=== PATIENT | female | born 1935 | race Caucasian/White ===

== ENCOUNTER → 2016-09-25 | Outpatient (CLI) | payer OTHER ==
[~2016-09-25] MED LIST: ALBUAER2 INH; CALCTAB65 PO; CHOL100027 PO; FLUT110A INH; FLVHFA44 INH; FURO-85 PO; LEVO125T5 PO; LISI10TA PO; LORA0.5T12 PO; LTRCR30 TOP; MECL1TAB40 PO; METO-217 PO; MULTTAB58 PO; NITR0.4S SL; NYST100010 TOP; NYST100098 TOP; OMEP20CA9 PO; POTA10CA28 PO; POTA20TA16 PO; PRMVC PV; SIMV20TA5 PO; SPIR25TA PO; WARF-283 PO; WARF4TAB8 PO
--- NOTE | 2016-09-25 15:49 | MAMMOGRAPHY REPORT ---
BILATERAL DIGITAL SCREENING MAMMOGRAM WITH CAD: 09/25/2016 CLINICAL HISTORY: Routine screening. Patient has no complaints. TECHNIQUE: Bilateral CC, MLO, right XCCM and end left XCCL views were obtained. Current study was a lso evaluated with a Computer Aided Detection (CAD) system. COMPARISON: Comparison is made to exams dated: 09/23/2015 mammogram, 09/22/2014 mammogram, 07/21/2013 mammogram, 07/26/2011 mammogram, 07/18/2012 mammogram, and 07/18/2011 mammogram - [facility]. BREAST COMPOSITION: The tissue of both breasts is almost entirely fatty. FINDINGS: There are scattered stable benign-appearing microcalcifications in the breasts. No new moody spicious mass, architectural distortion or cluster of microcalcifications is seen. IMPRESSION: ACR BI-RADS CATEGORY 1: NEGATIVE There is no mammographic evidence of malignancy. A 1 year screening mammogram is recommended. The p atient will receive written notification of the results. Approximately 10% of breast cancers are not detected with mammography. A negative mammographic repor t should not delay biopsy if a clinically suggestive mass is present. Syl Robert M.D. ay/:09/25/2016 15:34:37 Hospital Cna: Luz FAIR(R)(M), [facility] letter sent: Normal 1/2 BI-RADS Code: ACR BI-RADS Category 1: Negative
== END ==
LOC: C.MAMM 13:23
PROVIDERS: ATTEND Family Medicine
DX: Z12.31 Encounter for screening mammogram for malignant neoplasm of breast (principal)

== ENCOUNTER 2016-10-06 06:35 | Emergency (ER) | payer OTHER ==
[~2016-10-06] VITALS: Ht 154.9 cm; Wt 84.0 kg
[~2016-10-06 06:35] MED LIST changes: -FLVHFA44 INH; -LTRCR30 TOP; -NYST100010 TOP; -POTA10CA28 PO; -POTA20TA16 PO; -SPIR25TA PO; -WARF4TAB8 PO
[2016-10-06 06:43] VITALS: TEMP 36.9; O2SAT 97; Ht 154.9 cm; Wt 84.0 kg
[2016-10-06] MEDS ORDERED: METOPROLOL SUCC 50MG EXT REL TAB PO STA (06:46)
[2016-10-06] MEDS ORDERED: ASPIRIN 324 MG CHEW PO STA (06:47)
--- NOTE | 2016-10-06 06:50 | EMERGENCY ROOM VISIT NOTE ---
History Report prepared by Demetrio: Matt Pulido Under the Supervision of: Dr. Laura Smith M.D. First contact with patient: 06:38 Chief Complaint: CARDIAC ASSESSMENT Stated Complaint: CHEST DISCOMFORT History of Present Illness The patient is an 81 year old female who presents to the Emergency Room with complaints of resolved chest discomfort. The patient noticed a "hot" sensation across her chest towards the left arm after getting up to use the restroom at approximately 0445 this morning. The discomfort lasted about 10 minutes and is currently resolved. The patient denies shortness of breath. She denies any recent illness or fevers. She denies history of myocardial infarction. The patient takes Coumadin for atrial fibrillation. She does not take Aspirin. The patient takes Lisinopril and Metoprolol every morning, which she has not yet had this morning. She follows with Dr. Reid (Cardiology). Source of History: patient Onset: 0445 this morning Position: chest Quality: other ("hot") Timing: resolved Associated Symptoms: No SOB, No fevers Review of Systems See HPI for pertinent positives & negatives. A total of 10 systems reviewed and were otherwise negative. Past Medical & Surgical Medical Problems: (1) Atrial fibrillation (2) Cirrhosis of liver (3) CKD (chronic kidney disease), stage III (4) Dyslipidemia (5) Dyspnea (6) Essential tremor (7) HTN (hypertension) (8) Hypertension (9) Hypothyroidism (10) Mild mitral regurgitation (11) Osteoporosis (12) Warfarin anticoagulation Surgical Problems: (1) H/O bladder repair surgery (2) H/O colonoscopy (3) History of hysterectomy (4) S/P reduction mammoplasty Family History Patient reports no known family medical history. Social History Smoking Status: Never Smoker Alcohol Use: none Drug Use: none Marital Status: Housing Status: lives alone Occupation Status: retired Current/Historical Medications Scheduled Calcium Carbonate-Vitamin D (Calcium 500 + D), 1 TAB PO DAILY Cholecalciferol (Vitamin D 1000 Unit), 1,000 INTER.UNIT PO DAILY Clotrimazole (Lotrimin 1%), 1 APPLN TOP BID Fluticasone Propionate (Flovent Hfa), 2 PUFFS INH BID Furosemide (Lasix), 20 MG PO DAILY Levothyroxine Sodium (Levothyroxine Sodium), 125 MCG PO DAILY Lisinopril (Prinivil), 10 MG PO BID Metoprolol Succinate (Toprol Xl), 50 MG PO BID Multiple Vitamin (Multivitamin), 1 TAB PO DAILY Nystatin (Topical) (Nystop), 1 APPLN TOP DAILY Omeprazole (Prilosec), 20 MG PO DAILY Potassium Ext Rel (Klor-Con), 20 MEQ PO DAILY Simvastatin (Zocor), 20 MG PO HS Spironolactone (Aldactone), 25 MG PO DAILY Warfarin Sod (Jantoven), 4 MG PO UD Scheduled PRN Estrogens, Conjugated (Premarin), 1 APPLN PV HS PRN for vaginal atrophy Lorazepam (Lorazepam), 0.5 MG PO TID PRN for Headache/Tremor Meclizine HCl (Meclizine HCl), 12.5 MG PO TID PRN for Dizziness Nitroglycerin (Nitrostat), 0.4 MG SL UD PRN for Chest Pain Allergies Coded Allergies: Epinephrine (Verified Adverse Reaction, Severe, SEVERE TACHYCARDIA, ) Beta Adrenergic Blockers (Verified Adverse Reaction, Intermediate, CHF, ) Sotalol (Verified Adverse Reaction, Intermediate, CHF, 11/04/15) Replaces BETAPACE AF Physical Exam Vital Signs Date Time Temp Pulse Resp B/P Pulse Ox O2 Delivery O2 Flow Rate FiO2 10/06/16 11:50 72 15 130/79 96 Room Air 10/06/16 10:42 65 10/06/16 10:37 72 18 140/66 96 Room Air 10/06/16 08:54 76 18 153/93 95 Room Air 10/06/16 08:08 66 16 148/62 97 Room Air 10/06/16 07:10 66 10/06/16 06:56 69 18 141/85 95 Room Air 10/06/16 06:43 97 Room Air 10/06/16 06:43 36.9 72 16 161/114 97 Room Air 10/06/16 06:43 97 Room Air Physical Exam Vital signs reviewed. General: Elderly, well-appearing female, in no significant distress. HEENT: No scleral icterus, PERRLA, neck supple. Atraumatic. Cardiovascular: Regular rate and rhythm, no extra sounds. Pulmonary: Clear to auscultation bilaterally, normal work of breathing. Abdomen: Soft, nontender, nondistended, positive bowel sounds. Obese. Musculoskeletal: Atraumatic, no peripheral edema. Neurologic: Patient awake alert and oriented x 3, full strength in all 4 extremities. Cranial nerves 2 through 12 grossly intact. Skin: Warm, dry, no rash Medical Decision & Procedures ER Provider Diagnostic Interpretation: X-ray results as stated below per interpretation by me and the radiologist: CHEST ONE VIEW PORTABLE HISTORY: Atypical chest pain. COMPARISON: Chest 11/04/2015. FINDINGS: The heart remains mildly enlarged. Large hiatus hernia. Mild pulmonary vascular congestion and trace bilateral pleural effusions. No pneumothorax. Small lobular density at the base the right lower lobe is consistent with a small fat-containing hernia. No new focal lung consolidations. IMPRESSION: Cardiomegaly with mild pulmonary vascular congestion and trace bilateral pleural effusions. Electronically signed by: Tez Lawrence M.D. 10/06/2016 7:28 AM Dictated Date/Time: 10/06/2016 7:27 AM Laboratory Results 10/06/16 06:40 Red Blood Count 4.88, Mean Corpuscular Volume 88.5, Mean Corpuscular Hemoglobin 29.5, Mean Corpuscular Hemoglobin Concent 33.3, Mean Platelet Volume 9.8, Neutrophils (%) (Auto) 72.5, Lymphocytes (%) (Auto) 15.3, Monocytes (%) (Auto) 10.2, Eosinophils (%) (Auto) 1.4, Basophils (%) (Auto) 0.3, Neutrophils # (Auto ) 5.56, Lymphocytes # (Auto) 1.17, Monocytes # (Auto) 0.78, Eosinophils # (Auto ) 0.11, Basophils # (Auto) 0.02 10/06/16 06:40 Test 10/06/16 06:40 10/06/16 06:52 10/06/16 09:00 10/06/16 11:11 White Blood Count 7.66 K/uL (4.8-10.8) Red Blood Count 4.88 M/uL (4.2-5.4) Hemoglobin 14.4 g/dL (12.0-16.0) Hematocrit 43.2 % (37-47) Mean Corpuscular Volume 88.5 fL (80-100) Mean Corpuscular Hemoglobin 29.5 pg (25-34) Mean Corpuscular Hemoglobin Concent 33.3 g/dl (32-36) Platelet Count 312 K/uL (130-400) Mean Platelet Volume 9.8 fL (7.4-10.4) Neutrophils (%) (Auto) 72.5 % Lymphocytes (%) (Auto) 15.3 % Monocytes (%) (Auto) 10.2 % Eosinophils (%) (Auto) 1.4 % Basophils (%) (Auto) 0.3 % Neutrophils # (Auto) 5.56 K/uL (1.4-6.5) Lymphocytes # (Auto) 1.17 K/uL (1.2-3.4) Monocytes # (Auto) 0.78 K/uL (0.11-0.59) Eosinophils # (Auto) 0.11 K/uL (0-0.5) Basophils # (Auto) 0.02 K/uL (0-0.2) RDW Standard Deviation 45.0 fL (36.4-46.3) RDW Coefficient of Variation 13.9 % (11.5-14.5) Immature Granulocyte % (Auto) 0.3 % Immature Granulocyte # (Auto) 0.02 K/uL (0.00-0.02) Prothrombin Time 26.6 SECONDS (9.0-12.0) Prothromb Time International Ratio 2.4 (0.9-1.1) Activated Partial Thromboplast Time 37.9 SECONDS (21.0-31.0) Partial Thromboplastin Ratio 1.5 Anion Gap 8.0 mmol/L (3-11) Est Creatinine Clear Calc Drug Dose 50.4 ml/min Estimated GFR () 73.4 Estimated GFR (Non- 63.4 BUN/Creatinine Ratio 21.3 (10-20) Calcium Level 8.4 mg/dl (8.5-10.1) Magnesium Level 2.0 mg/dl (1.8-2.4) Total Bilirubin 1.6 mg/dl (0.2-1) Direct Bilirubin 0.3 mg/dl (0-0.2) Aspartate Amino Transf (AST/SGOT) 22 U/L (15-37) Alanine Aminotransferase (ALT/SGPT) 20 U/L (12-78) Alkaline Phosphatase 105 U/L (45-117) Total Creatine Kinase 73 U/L (26-192) Creatine Kinase MB 1.2 ng/ml (0.5-3.6) Creatine Kinase MB Ratio 1.6 (0-3.0) Total Protein 6.8 gm/dl (6.4-8.2) Albumin 3.5 gm/dl (3.4-5.0) FC-Ahs-T-Type Natriuretic Peptide 1080 pg/ml (0-1800) Urine Color YELLOW Urine Appearance CLEAR (CLEAR) Urine pH 6.0 (4.5-7.5) Urine Specific [place] 1.011 (1.000-1.030) Urine Protein NEG (NEG) Urine Glucose (UA) NEG (NEG) Urine Ketones NEG (NEG) Urine Occult Blood TRACE (NEG) Urine Nitrite NEG (NEG) Urine Bilirubin NEG (NEG) Urine Urobilinogen NEG (NEG) Urine Leukocyte Esterase MODERATE (NEG) Urine WBC (Auto) 5-10 /hpf (0-5) Urine RBC (Auto) 0-4 /hpf (0-4) Urine Hyaline Casts (Auto) 1-5 /lpf (0-5) Urine Epithelial Cells (Auto) >30 /lpf (0-5) Urine Bacteria (Auto) NEG (NEG) Urine Yeast (Auto) (NONE PRSENT) Bedside Troponin I 0.020 ng/ml (0-0.045) Date/Time Source Procedure Growth Status 10/06/16 09:00 Urine , Clean Catch Urine Culture - Final Lactobacillus Species Complete Laboratory results per my review. Medications Administered Medications (Trade) Dose Ordered Sig/Jac Route Start Time Stop Time Status Last Admin Dose Admin Lisinopril (Zestril Tab) 10 mg NOW ONCE PO 10/06/16 07:00 10/06/16 07:01 DC 10/06/16 06:54 10 MG Metoprolol Succinate (Toprol Xl Tab) 50 mg NOW STAT PO 10/06/16 06:46 10/06/16 06:47 DC 10/06/16 06:54 50 MG Aspirin (Aspirin Chew) 324 mg NOW STAT PO 10/06/16 06:47 10/06/16 06:49 DC 10/06/16 06:54 324 MG Furosemide (Lasix Inj) 40 mg NOW STAT IV 10/06/16 08:02 10/06/16 08:04 DC 10/06/16 08:10 40 MG Potassium Chloride (Kcl 10 Meq / Wtr) 20 meq NOW STAT IV 10/06/16 08:36 10/06/16 08:37 DC 10/06/16 08:40 20 MEQ ECG Indication: chest pain Rate (beats per minute): 74 Rhythm: atrial fibrillation Findings: no acute ischemic change, other (QTC 461) ED Course 0645: Past medical records reviewed. The patient was evaluated in room A12b. A complete history and physical examination was performed. 0646: Metoprolol Succinate 50 mg PO. 0647: Aspirin 324 mg PO. 0700: Lisinopril 10 mg PO. 0945: Reassessed the patient. Ordering another troponin. 1200: Upon reevaluation, the patient appeared to have improvement of her symptoms. I discussed findings with her. She verbalized agreement of the treatment plan. She was discharged home. Medical Decision Differential diagnosis: Acute coronary syndrome, pulmonary embolus, aortic dissection, musculoskeletal pain, pneumonia, pleural effusion, pneumothorax Impression Primary Impression: Chest pain radiating to arm Scribe Attestation The scribe's documentation has been prepared under my direction and personally reviewed by me in its entirety. I confirm that the note above accurately reflects all work, treatment, procedures, and medical decision making performed by me. Departure Information Dispostion Home / Self-Care Prescriptions Potassium Ext Rel (Klor-Con) 20 Meq Tabcr 20 MEQ PO DAILY, #30 TAB Prov: Laura Smith M.D. 10/06/16 Referrals Jovany El M.D. (PCP) Forms IMPORTANT VISIT INFORMATION Patient Instructions [facility] Additional Instructions Diagnosis: CHF, Chest pain Continue lasix as prescribed. Potassium 20 MEq daily. Follow up with your doctor this week for reevaluation. Return to emergency for worsening of symptoms or any medical concerns.
[2016-10-06] MEDS ORDERED: SPIR25TA PO (07:00)
[2016-10-06] MEDS ORDERED: WARF4TAB8 PO (07:00)
[2016-10-06] MEDS ORDERED: NYST100010 TOP (07:00)
[2016-10-06] MEDS ORDERED: LTRCR30 TOP (07:00)
[2016-10-06] MEDS ORDERED: LISINOPRIL 5 MG TAB PO ONE (07:00)
[2016-10-06] MEDS ORDERED: FLVHFA44 INH (07:00)
[2016-10-06 07:06] LABS: BASO % 0.3 %; BASO ABS # 0.02 K/uL (0-0.2); COMPLETE YES; EOS % 1.4 %; HEMATOCRIT 43.2 % (37-47); IG% 0.3 %; LYMPH % 15.3 %; LYMPH ABS # 1.17 K/uL (1.2-3.4); MEAN CELL VOLUME 88.5 fL (80-100); MEAN CORPUSCULAR HEMOGLOBIN 29.5 pg (25-34); MEAN CORPUSCULAR HGB CONC 33.3 g/dl (32-36); MEAN PLATELET VOLUME 9.8 fL (7.4-10.4); MONO % 10.2 %; NEUT % 72.5 %; PLATELET COUNT 312 K/uL (130-400); RED BLOOD COUNT 4.88 M/uL (4.2-5.4); WHITE BLOOD COUNT 7.66 K/uL (4.8-10.8)
[2016-10-06 07:12] LABS: POINT OF CARE TROPONIN I 0.01 ng/ml (0-0.045)
[2016-10-06 07:18] LABS: BUN/CREATININE RATIO 21.3 (10-20); CALCIUM 8.4 mg/dl (8.5-10.1); CREATININE 0.86 mg/dl (0.60-1.20); POTASSIUM 3.2 mmol/L (3.5-5.1)
[2016-10-06 07:23] LABS: CKMB/CK RATIO 1.6 (0-3.0)
[2016-10-06 07:26] LABS: INR 2.4 (0.9-1.1); PARTIAL THROMBOPLASTIN RATIO 1.5; PROTHROMBIN TIME (PATIENT) 26.6 SECONDS (9.0-12.0)
--- NOTE | 2016-10-06 07:29 | DIAGNOSTIC IMAGING REPORT ---
CHEST ONE VIEW PORTABLE HISTORY: Atypical chest pain. COMPARISON: Chest 11/04/2015. FINDINGS: The heart remains mildly enlarged. Large hiatus hernia. Mild pulmonary vascular congestion and trace bilateral pleural effusions. No pneumothorax. Small lobular density at the base the right lower lobe is consistent with a small fat-containing hernia. No new focal lung consolidations. IMPRESSION: Cardiomegaly with mild pulmonary vascular congestion and trace bilateral pleural effusions. Electronically signed by: Tez Lawrence M.D. 10/06/2016 7:28 AM Dictated Date/Time: 10/06/2016 7:27 AM
[2016-10-06] MEDS ORDERED: FUROSEMIDE 40 MG/4 ML VIAL IV STA (08:02)
[2016-10-06] MEDS ORDERED: POTASSIUM CHLORIDE 10 MEQ / 100ML WTR IV STA (08:36)
[2016-10-06 09:10] LABS: URINE APPEARANCE CLEAR (CLEAR); URINE BILIRUBIN NEG (NEG); URINE COLOR YELLOW; URINE EPITHELIAL CELL AUTO >30 /lpf (0-5); URINE NITRITE NEG (NEG); URINE SPECIFIC GRAVITY 1.011 (1.000-1.030); UROBILINOGEN NEG (NEG); ZZUR CULT IF INDIC CLEAN CATCH YES
[2016-10-06 09:15] LABS: MANUAL MICROSCOPIC REQUIRED? NO; REVIEW REQ? YES
[2016-10-06 11:50] VITALS: BP 130/79; PULSE 72; O2SAT 96
[2016-10-06] MEDS ORDERED: POTA20TA16 PO (12:06)
[2016-12-08] MEDS ORDERED: POTA10CA28 PO (11:58)
== END 2016-10-06 12:13 | disposition home or self-care (01) ==
LOC: EDBD 06:35 → C.EDA 06:36
DX: R07.9 Chest pain, unspecified (principal); M79.602 Pain in left arm; I48.91 Unspecified atrial fibrillation; I12.9 Hypertensive chronic kidney disease with stage 1 through stage 4 chronic kidney disease, or unspecified chronic kidney disease; N18.3 Chronic kidney disease, stage 3 (moderate); E78.5 Hyperlipidemia, unspecified; E03.9 Hypothyroidism, unspecified; M81.0 Age-related osteoporosis without current pathological fracture; K74.60 Unspecified cirrhosis of liver; Z79.01 Long term (current) use of anticoagulants; Z79.899 Other long term (current) drug therapy

== ENCOUNTER → 2016-12-11 | Day surgery (SDC) | payer OTHER ==
[2016-12-08 11:58] VITALS: Ht 154.9 cm; Wt 85.0 kg
[~2016-12-11] VITALS: Ht 154.9 cm; Wt 85.0 kg
[~2016-12-11] MED LIST changes: +500ML BSS 0.3ML EPI 1:1000PF IRRIG ONE; +ACETAMINOPHEN 325 MG TAB PO PRN; -ALBUAER2 INH; +AMVISC PLUS 0.8ML SYRINGE INT OCU ONE; +ATROPINE SULFATE 0.1 MG/ML 5ML SYR IV PRN; +BRIMONIDINE TART 0.2% OP SOLN PER DROP CHARGE ONE; +BSS FLUSH ONE; +EpINEphrine INJ 1MG/ML AMP 1 MG/ML AMP ONE; -FLUT110A INH; +FLVHFA44 INH; +LACTATED RINGER'S 1000ML 500 ML IV SCH; +LEVO125T4 PO; -LEVO125T5 PO; +LIDOCAINE 4% OP SOLN DROP CHARGE ONE; +LIDOCAINE 4% OP SOLN DROP CHARGE OPL SCH; +LIDOCAINE HCL 1% MPF 2 ML VIAL ONE; +MIDAZOLAM HCL 1 MG/ML 2ML VIAL ONE; +MOXIFLOXACIN OPH SOLN PER DROP CHARGE ONE; -NYST100098 TOP; +ONDANSETRON INJ 2 MG/ML 2 ML VIAL IV PRN; +ONDANSETRON INJ 2 MG/ML 2 ML VIAL ONE; +POTA10CA28 PO; +POVIDONE-IODINE OP SOLN 30 ML BTL ONE; +PROPARACAINE 0.5% OP SOLN PER DROP CHARGE OPL SCH; +SPIR25TA PO; +TOBRAMYCIN/DEXAMETHASONE OPH OINT PER APPLN CHARGE ONE; +VISCOAT 0.5ML SYRINGE INT OCU ONE; -WARF-283 PO; +WARF4TAB8 PO
--- NOTE | 2016-12-11 07:38 | History & Physical Bridge - SC ---
H&P Re-Evaluation Bridge Note: I have examined the patient, reviewed the History & Physical and in the interval since the performance of the History & Physical I have noted the following changes of clinical significance: No changes noted
[2016-12-11] MEDS: PHENYLEPHRINE HCL 2.5% OP SOLN PER DROP CHARGE OPL SCH ×2 (07:48→07:55)
[2016-12-11] MEDS: TROPICAMIDE 1% OP SOLN PER DROP CHARGE OPL SCH ×2 (07:49→07:56)
[2016-12-11] MEDS: CYCLOPENTOLATE HCL 1% OP SOLN PER DROP CHARGE OPL SCH ×2 (07:50→07:57)
[2016-12-11] MEDS: KETOROLAC 0.5% OP SOLN PER DROP CHARGE OPL SCH ×2 (07:51→07:58)
[2016-12-11] MEDS: MOXIFLOXACIN OPH SOLN PER DROP CHARGE OPL SCH ×2 (07:52→08:02)
--- NOTE | 2016-12-11 08:38 | Discharge Instructions-SurgCtr ---
Discharge Instructions Date of Service Dec 11, 2016. Visit Reason for Visit: Cataract Left Eye Discharge Discharge Diagnosis / Problem: cataract left eye Discharge Goals Goal(s): Improve function Activity Recommendations Activity Limitations: per Instructions/Follow-up section Lifting Limitations: no more than 5 pounds Anesthesia . Post Anesthesia Instructions: If you have had General Anesthesia or IV Sedation: * Do not drive today. * Resume driving when surgeon permits. * Do not make important decisions or sign legal documents today. * Call surgeon for: 1. Temperature elevations greater than 101 degrees F. 2. Uncontrollable pain. 3. Excessive bleeding. 4. Persistent nausea and vomiting. 5. Medication intolerance (nausea, vomiting or rash). * For nausea and vomiting use only clear liquids such as: tea, soda, bouillon until nausea subsides, then gradually increase diet as tolerated. * If you have any concerns or questions, call your surgeon's office. If physician is unavailable and it is an emergency, call 911 or go to the nearest emergency room. . Instructions / Follow-Up Instructions / Follow-Up ACTIVITY RECOMMENDATIONS: * Light activities * You may walk outside, read, watch television. * Mild irritation and blurred vision are common for the first few days, redness around the white part of the eye is common. MEDICATIONS: Resume previous medications unless instructed otherwise by your surgeon. Eye drops (today and tomorrow): Gatifloxacin - one drop in operative eye every 2 hours while awake Prednisolone 1% - one drop in operative eye every 2 hours while awake Bromfenac - one drop in operative eye once daily SPECIAL CARE INSTRUCTIONS: * If any problems or concerns, please call Dr. Partida's office at . * Keep plastic shield taped over eye to sleep at night. * Keep plastic shield taped over eye except to administer eye drops. * Keep plastic shield on until office visit the following day. FOLLOW UP VISIT: Follow-up with Dr. Partida in the [place] office as scheduled. If not already scheduled, please call the office at . Diet Recommendations Home Diet: resume previous diet Procedures Procedures Performed: Left Eye Cataract Phacoemulsification With Intraocular Lens Implant Pending Studies Studies pending at discharge: no Medical Emergencies . Who to Call and When: Medical Emergencies: If at any time you feel your situation is an emergency, please call 911 immediately. . Non-Emergent Contact Non-Emergency issues call your: Anesthesiology Tech . . "Provider Documentation" section prepared by Dany Partida. .
[2016-12-11 08:40] VITALS: TEMP 36.7
--- NOTE | 2016-12-11 08:40 | [facility] Operative Report ---
Operative Report Operative Date Dec 11, 2016. Pre-Operative Diagnosis Left Eye Cataract Post-Operative Diagnosis Same Procedure(s) Performed Left Eye Cataract Phacoemulsification With Intraocular Lens Implant Surgeon Dr. Partida Catcher Plug Surgeon(s) None Estimated Blood Loss None Findings cataract left eye Specimens None Drains none Anesthesia local with sedation Complication(s) None Disposition Recovery Room / PACU Implants [id number] 20.0 Indications decreased vision left eye Description of Procedure After informed consent was obtained in the holding area the patient was wheeled back to the operating room where cardiac monitoring leads and oxygen by nasal cannula was administered by Anesthesia. Gentle IV sedation was given, and the patient's left eye was prepped and draped in usual sterile fashion. A wire lid speculum was placed into the left eye and the operating microscope was swung into position. Using 0.12 forceps and a Supersharp blade a paracentesis port was made 3 o'clock hours away from the 3 o'clock position of the patient's left eye. 1% non-preserved Lidocaine was then injected into the anterior chamber for anesthesia. A 2.0 mm keratotome blade was then used to make a shelved clear corneal incision at the 3 o'clock position of the left eye. Amvisc was injected into the anterior chamber and a cystotome and Utrata forceps were used to perform a curvilinear capsulorrhexis. BSS on a hydrodissection cannula was used to hydrodissect the lens nucleus away from the capsular bag. The phacoemulsification handpiece was then used in a stop and chop fashion to remove the lens nucleus. The irrigation and aspiration handpiece was then used to remove the residual cortical material. Amvisc was injected into the capsular bag and anterior chamber and a [employer]ch [employer] Lomb MX60 20.0 Diopter intraocular lens was injected into the capsular bag. Irrigation and aspiration handpiece was used to remove the residual viscoelastic material. The wounds were hydrated and noted to be watertight. The wire lid speculum was removed from the eye. Vigamox, Brimonidine, and TobraDex ointment were placed on the eye and it was shielded. It should be noted that EndoCoat was used extensively during the case to protect the cornea endothelium. DISPOSITION: The patient tolerated the procedure well and was wheeled to the post anesthesia care unit in stable condition. I attest to the content of the Intraoperative Record and any orders documented therein. Any exceptions are noted below. I attest to the content of the Intraoperative Record and any orders documented therein. Any exceptions are noted below.
--- NOTE | 2016-12-11 08:52 | Anesthesia Progress Nt - [facility] ---
Anesthesia Post Op Note Date & Time Dec 11, 2016 at 08:51 Vital Signs Pain Intensity: 0 Vital Signs Past 12 Hours Date Time Temp Pulse Resp B/P (MAP) Pulse Ox O2 Delivery O2 Flow Rate FiO2 12/11/16 08:40 36.7 79 20 143/86 (105) 97 Room Air 12/11/16 07:38 36.3 88 20 158/97 (117) 96 Room Air Notes Mental Status: alert / awake / arousable, participated in evaluation Pt Amnestic to Procedure: Yes Nausea / Vomiting: adequately controlled Pain: adequately controlled Airway Patency, RR, SpO2: stable & adequate BP & HR: stable & adequate Hydration State: stable & adequate Anesthetic Complications: no major complications apparent
[2016-12-11 08:58] VITALS: BP 132/68; PULSE 72; O2SAT 96
== END | disposition home or self-care (01) ==
LOC: X.SURG 07:28
PROVIDERS: ATTEND Ophthalmology
DX: H25.12 Age-related nuclear cataract, left eye (principal); E11.9 Type 2 diabetes mellitus without complications; E78.00 Pure hypercholesterolemia, unspecified; J45.909 Unspecified asthma, uncomplicated; I12.9 Hypertensive chronic kidney disease with stage 1 through stage 4 chronic kidney disease, or unspecified chronic kidney disease; I50.9 Heart failure, unspecified; I48.91 Unspecified atrial fibrillation; F41.9 Anxiety disorder, unspecified; F32.9 Major depressive disorder, single episode, unspecified; K21.9 Gastro-esophageal reflux disease without esophagitis; K44.9 Diaphragmatic hernia without obstruction or gangrene; K74.60 Unspecified cirrhosis of liver; E03.9 Hypothyroidism, unspecified; R42 Dizziness and giddiness; M81.0 Age-related osteoporosis without current pathological fracture; G25.0 Essential tremor

== ENCOUNTER 2017-02-04 06:49 | Emergency (ER) | payer OTHER ==
[~2017-02-04] VITALS: Ht 154.9 cm; Wt 91.8 kg
[~2017-02-04 06:49] MED LIST changes: -500ML BSS 0.3ML EPI 1:1000PF IRRIG ONE; -ACETAMINOPHEN 325 MG TAB PO PRN; -AMVISC PLUS 0.8ML SYRINGE INT OCU ONE; -ATROPINE SULFATE 0.1 MG/ML 5ML SYR IV PRN; -BRIMONIDINE TART 0.2% OP SOLN PER DROP CHARGE ONE; -BSS FLUSH ONE; -EpINEphrine INJ 1MG/ML AMP 1 MG/ML AMP ONE; -LACTATED RINGER'S 1000ML 500 ML IV SCH; -LIDOCAINE 4% OP SOLN DROP CHARGE ONE; -LIDOCAINE 4% OP SOLN DROP CHARGE OPL SCH; -LIDOCAINE HCL 1% MPF 2 ML VIAL ONE; -MIDAZOLAM HCL 1 MG/ML 2ML VIAL ONE; -MOXIFLOXACIN OPH SOLN PER DROP CHARGE ONE; -ONDANSETRON INJ 2 MG/ML 2 ML VIAL IV PRN; -ONDANSETRON INJ 2 MG/ML 2 ML VIAL ONE; -POVIDONE-IODINE OP SOLN 30 ML BTL ONE; -PROPARACAINE 0.5% OP SOLN PER DROP CHARGE OPL SCH; -TOBRAMYCIN/DEXAMETHASONE OPH OINT PER APPLN CHARGE ONE; -VISCOAT 0.5ML SYRINGE INT OCU ONE
[2017-02-04 06:50] VITALS: TEMP 36.8; O2SAT 97
[2017-02-04] MEDS ORDERED: WARF4TAB8 PO (07:10)
[2017-02-04 07:27] VITALS: Ht 154.9 cm; Wt 91.8 kg
[2017-02-04 07:47] LABS: BASO % 0.4 %; BASO ABS # 0.02 K/uL (0-0.2); COMPLETE YES; EOS % 1.1 %; HEMATOCRIT 39.6 % (37-47); IG% 0.2 %; LYMPH % 14.4 %; LYMPH ABS # 0.79 K/uL (1.2-3.4); MEAN CELL VOLUME 89.4 fL (80-100); MEAN CORPUSCULAR HEMOGLOBIN 29.3 pg (25-34); MEAN CORPUSCULAR HGB CONC 32.8 g/dl (32-36); MEAN PLATELET VOLUME 9.9 fL (7.4-10.4); MONO % 9.3 %; NEUT % 74.6 %; PLATELET COUNT 230 K/uL (130-400); RED BLOOD COUNT 4.43 M/uL (4.2-5.4); WHITE BLOOD COUNT 5.47 K/uL (4.8-10.8)
[2017-02-04 07:57] LABS: INR 2.1 (0.9-1.1); PARTIAL THROMBOPLASTIN RATIO 1.5; PROTHROMBIN TIME (PATIENT) 23.1 SECONDS (9.0-12.0)
[2017-02-04 08:04] LABS: BUN/CREATININE RATIO 18.7 (10-20); CALCIUM 8.8 mg/dl (8.5-10.1); CREATININE 0.78 mg/dl (0.60-1.20); POTASSIUM 3.7 mmol/L (3.5-5.1)
--- NOTE | 2017-02-04 08:15 | DIAGNOSTIC IMAGING REPORT ---
CHEST ONE VIEW PORTABLE CLINICAL HISTORY: EVALUATE RESPIRATORY DISTRESS. DYSPNEA COMPARISON STUDY: 10/06/2016 FINDINGS: Mild stable cardiomegaly. Fixed hiatal hernia. Lungs are clear. IMPRESSION: Chronic change. No acute process. The above report was generated using voice recognition software. It may contain grammatical, syntax or spelling errors. Electronically signed by: Jovany Hadley M.D. 02/04/2017 8:13 AM Dictated Date/Time: 02/04/2017 8:13 AM
[2017-02-04 08:47] LABS: URINE APPEARANCE CLEAR (CLEAR); URINE BILIRUBIN NEG (NEG); URINE COLOR YELLOW; URINE NITRITE NEG (NEG); URINE PH 6.5 (4.5-7.5); URINE SPECIFIC GRAVITY 1.012 (1.000-1.030); UROBILINOGEN NEG (NEG)
[2017-02-04 08:50] LABS: MANUAL MICROSCOPIC REQUIRED? NO; REVIEW REQ? NO
[2017-02-04] MEDS ORDERED: FUROSEMIDE 40 MG/4 ML VIAL IV STA (11:05)
[2017-02-04 11:41] VITALS: BP 180/88; PULSE 98; O2SAT 96
--- NOTE | 2017-02-04 15:30 | EMERGENCY ROOM VISIT NOTE ---
History Report prepared by Gaetanoibramakrishna: Cydney Meléndez Under the Supervision of: Dr. Yobani Alonzo D.O. First contact with patient: 07:14 Chief Complaint: SHORTNESS OF BREATH Stated Complaint: SHORT OF BREATH Nursing Triage Summary: Patient presents with 6 pound weight gain in the last several days She has been prescribed Lasix if she has a noted weight gain of +2 pounds She did not take the prescribed Lasix as she has been traveling in the car to [place] to car pick up driver a puppy. She returned home last night and did not take the Lasix at that time or this morning. She c/o increased SOB when lying flat. Denies chest pain History of Present Illness The patient is an 81 year old female who presents to the Emergency Room with complaints of recent weight gain. She reports she has experienced a 6 pound weight gain over the past several days. The patient admits to a history of CHF and follows with Dr. Reid of [facility]. She normally takes 20 mg Lasix daily, but admits she missed her dose yesterday and the day before, as she was traveling in [place] via car. She admits to swelling in her bilateral legs, especially at the end of the day, but states this is not unusual for her. Very early this morning, she did experience some "shallow breathing" and felt short of breath which resolved very quickly. He has no current short of breath since that occurred. The patient denies any headache, change in vision, fevers , chest pain, nausea, vomiting, diarrhea, pain with urination, and melena. Source of History: patient Onset: past several days Position: other (global) Timing: other (persistent) Modifying Factors (Worsening): other (missing Lasix doses) Associated Symptoms: + SOB, No fevers, No headache, No chest pain, No nausea , No vomiting, No melena, No diarrhea, No urinary symptoms Review of Systems See HPI for pertinent positives & negatives. A total of 10 systems reviewed and were otherwise negative. Past Medical & Surgical Medical Problems: (1) Atrial fibrillation (2) Cirrhosis of liver (3) CKD (chronic kidney disease), stage III (4) Dyslipidemia (5) Dyspnea (6) Essential tremor (7) HTN (hypertension) (8) Hypertension (9) Hypothyroidism (10) Mild mitral regurgitation (11) Osteoporosis (12) Warfarin anticoagulation Surgical Problems: (1) H/O bladder repair surgery (2) H/O colonoscopy (3) History of hysterectomy (4) S/P reduction mammoplasty Family History Patient reports no known family medical history. Social History Smoking Status: Never Smoker Alcohol Use: none Drug Use: none Marital Status: Housing Status: lives alone Occupation Status: retired Current/Historical Medications Scheduled Calcium Carbonate-Vitamin D (Calcium 500 + D), 1 TAB PO DAILY Cholecalciferol (Vitamin D 1000 Unit), 1,000 INTER.UNIT PO DAILY Fluticasone Propionate (Flovent Hfa), 2 PUFFS INH BID Furosemide (Lasix), 20 MG PO DAILY Levothyroxine Sodium (Levothyroxine Sodium), 125 MCG PO DAILY Lisinopril (Prinivil), 10 MG PO BID Metoprolol Succinate (Toprol Xl), 50 MG PO BID Multiple Vitamin (Multivitamin), 1 TAB PO DAILY Omeprazole (Prilosec), 20 MG PO DAILY Potassium Chloride (Micro-K Ext Rel), 10 MEQ PO 3XWK Simvastatin (Zocor), 20 MG PO HS Spironolactone (Aldactone), 25 MG PO DAILY Warfarin Sod (Jantoven), 4 MG PO 6XWK Warfarin Sod (Jantoven), 2 MG PO WK Scheduled PRN Estrogens, Conjugated (Premarin), 1 APPLN PV HS PRN for vaginal atrophy Lorazepam (Lorazepam), 0.5 MG PO TID PRN for Headache/Tremor Meclizine HCl (Meclizine HCl), 12.5 MG PO TID PRN for Dizziness Nitroglycerin (Nitrostat), 0.4 MG SL UD PRN for Chest Pain Allergies Coded Allergies: Epinephrine (Verified Adverse Reaction, Severe, SEVERE TACHYCARDIA, ) Beta Adrenergic Blockers (Verified Adverse Reaction, Intermediate, CHF, ) Sotalol (Verified Adverse Reaction, Intermediate, CHF, 02/04/17) Replaces BETAPACE AF Physical Exam Vital Signs Date Time Temp Pulse Resp B/P (MAP) Pulse Ox O2 Delivery O2 Flow Rate FiO2 02/04/17 11:41 98 18 180/88 96 02/04/17 10:12 85 02/04/17 09:54 76 18 174/81 97 Room Air 02/04/17 08:15 75 20 144/62 97 Room Air 02/04/17 06:58 90 9/24/17 06:50 36.8 115 24 163/94 97 Room Air 02/04/17 06:50 97 Room Air 02/04/17 06:50 97 Room Air Physical Exam GENERAL: Patient is alert, sitting up in bed, well appearing, well nourished, no distress, non-toxic and talking in full sentences EYE EXAM: normal conjunctiva OROPHARYNX: no exudate, no erythema, lips, buccal mucosa, and tongue normal and mucous membranes are moist NECK: supple, no nuchal rigidity, no adenopathy, non-tender. No JVD LUNGS: Clear to auscultation. Normal chest wall mechanics HEART: no murmurs, S1 normal and S2 normal ABDOMEN: abdomen soft, non-tender, normo-active bowel sounds, no masses, no rebound or guarding. BACK: Back is symmetrical on inspection and there is no deformity, no midline tenderness, no CVA tenderness. SKIN: no rashes and no bruising UPPER EXTREMITIES: upper extremities are grossly normal. LOWER EXTREMITIES: Calves are equal bilaterally with faint pitting edema. NEURO EXAM: Normal sensorium, cranial nerves II-XII grossly intact, normal speech, no gross weakness of arms, no gross weakness of legs. Gross sensation intact. Medical Decision & Procedures ER Provider Diagnostic Interpretation: Radiology results as stated below per my review and the radiologist's interpretation: CHEST ONE VIEW PORTABLE CLINICAL HISTORY: EVALUATE RESPIRATORY DISTRESS. DYSPNEA COMPARISON STUDY: 10/06/2016 FINDINGS: Mild stable cardiomegaly. Fixed hiatal hernia. Lungs are clear. IMPRESSION: Chronic change. No acute process. The above report was generated using voice recognition software. It may contain grammatical, syntax or spelling errors. Electronically signed by: Jovany Hadley M.D. 02/04/2017 8:13 AM Laboratory Results 02/04/17 07:30 Red Blood Count 4.43, Mean Corpuscular Volume 89.4, Mean Corpuscular Hemoglobin 29.3, Mean Corpuscular Hemoglobin Concent 32.8, Mean Platelet Volume 9.9, Neutrophils (%) (Auto) 74.6, Lymphocytes (%) (Auto) 14.4, Monocytes (%) (Auto) 9.3, Eosinophils (%) (Auto) 1.1, Basophils (%) (Auto) 0.4, Neutrophils # (Auto) 4.08, Lymphocytes # (Auto) 0.79, Monocytes # (Auto) 0.51, Eosinophils # (Auto) 0.06, Basophils # (Auto) 0.02 02/04/17 07:30 Test 02/04/17 07:30 02/04/17 08:30 02/04/17 09:26 White Blood Count 5.47 K/uL (4.8-10.8) Red Blood Count 4.43 M/uL (4.2-5.4) Hemoglobin 13.0 g/dL (12.0-16.0) Hematocrit 39.6 % (37-47) Mean Corpuscular Volume 89.4 fL (80-100) Mean Corpuscular Hemoglobin 29.3 pg (25-34) Mean Corpuscular Hemoglobin Concent 32.8 g/dl (32-36) Platelet Count 230 K/uL (130-400) Mean Platelet Volume 9.9 fL (7.4-10.4) Neutrophils (%) (Auto) 74.6 % Lymphocytes (%) (Auto) 14.4 % Monocytes (%) (Auto) 9.3 % Eosinophils (%) (Auto) 1.1 % Basophils (%) (Auto) 0.4 % Neutrophils # (Auto) 4.08 K/uL (1.4-6.5) Lymphocytes # (Auto) 0.79 K/uL (1.2-3.4) Monocytes # (Auto) 0.51 K/uL (0.11-0.59) Eosinophils # (Auto) 0.06 K/uL (0-0.5) Basophils # (Auto) 0.02 K/uL (0-0.2) RDW Standard Deviation 46.0 fL (36.4-46.3) RDW Coefficient of Variation 13.9 % (11.5-14.5) Immature Granulocyte % (Auto) 0.2 % Immature Granulocyte # (Auto) 0.01 K/uL (0.00-0.02) Prothrombin Time 23.1 SECONDS (9.0-12.0) Prothromb Time International Ratio 2.1 (0.9-1.1) Activated Partial Thromboplast Time 37.8 SECONDS (21.0-31.0) Partial Thromboplastin Ratio 1.5 D-Dimer 230 ug/L FEU (0-500) Anion Gap 8.0 mmol/L (3-11) Est Creatinine Clear Calc Drug Dose 58.4 ml/min Estimated GFR () 82.6 Estimated GFR (Non- 71.3 BUN/Creatinine Ratio 18.7 (10-20) Calcium Level 8.8 mg/dl (8.5-10.1) Total Bilirubin 1.4 mg/dl (0.2-1) Aspartate Amino Transf (AST/SGOT) 21 U/L (15-37) Alanine Aminotransferase (ALT/SGPT) 17 U/L (12-78) Alkaline Phosphatase 94 U/L (45-117) Pro-B-Type Natriuretic Peptide 1243 pg/ml (0-1800) Total Protein 6.5 gm/dl (6.4-8.2) Albumin 3.3 gm/dl (3.4-5.0) Globulin 3.2 gm/dl (2.5-4.0) Albumin/Globulin Ratio 1.0 (0.9-2) Urine Color YELLOW Urine Appearance CLEAR (CLEAR) Urine pH 6.5 (4.5-7.5) Urine Specific [place] 1.012 (1.000-1.030) Urine Protein NEG (NEG) Urine Glucose (UA) NEG (NEG) Urine Ketones NEG (NEG) Urine Occult Blood 1+ (NEG) Urine Nitrite NEG (NEG) Urine Bilirubin NEG (NEG) Urine Urobilinogen NEG (NEG) Urine Leukocyte Esterase NEG (NEG) Urine WBC (Auto) 0 /hpf (0-5) Urine RBC (Auto) 5-10 /hpf (0-4) Urine Hyaline Casts (Auto) 1-5 /lpf (0-5) Urine Epithelial Cells (Auto) 10-20 /lpf (0-5) Urine Bacteria (Auto) NEG (NEG) Troponin I 0.041 ng/ml (0-0.045) Laboratory results per my review. Medications Administered Medications (Trade) Dose Ordered Sig/Jac Route Start Time Stop Time Status Last Admin Dose Admin Furosemide (Lasix Inj) 40 mg NOW STAT IV 02/04/17 11:05 02/04/17 11:06 DC 02/04/17 11:32 40 MG ECG Indication: SOB/dyspnea Rate (beats per minute): 77 Rhythm: atrial fibrillation Findings: other (normal axis, normal intervals) ED Course ED COURSE: Vital signs were reviewed and showed the patient is hypertensive. The patients medical record was reviewed The above diagnostic studies were performed and reviewed. ED treatments and interventions as stated above. 0717: The patient was evaluated in room A9. A complete history and physical examination was performed. 1008: Upon reevaluation, the patient is feeling much better. I discussed my findings with the patient and she understands and agrees with the treatment plan. 1105: Lasix 40 mg IV. Based on the patients age, coexisting illnesses, exam and lab findings the decision to treat as an outpatient was made. The patient remained stable while under my care. The patient appeared well at the time of discharge. Medical Decision Differential diagnoses includes but is not limited to pneumonia, bronchitis, COPD/Asthma exacerbation, pneumothorax, pulmonary embolism, congestive heart failure, acute coronary syndrome. Patient is an 81-year-old female who presents to ER for a 6 pound weight gain. She complained of a short episode of shortness of breath earlier. She did not take her Lasix yesterday. She has been taking her blood thinner. CBC was unremarkable. BMP all LFTs and bilirubin was unremarkable for a T bili of 1.4. BNP was slightly elevated at 1200. Troponin was negative 2. EKG showed A. fib was unchanged from previous. Chest x-ray shows no overt signs of failure. She adamantly denies any chest pain or dyspnea with exertion. She notes she only had one episode of shortness breath earlier which resolved completely. She feels as though she is back to her baseline with the exception of the weekend. With her missing her dose of Lasix I favor that this is likely secondary to early CHF. Patient was given IV Lasix. I do not believe that this is cardiac. I did contemplate PE but her INR is therapeutic and her calves were equal bilateral. She is also completely asymptomatic. I favor that this is likely volume in nature and associated with her not taking her Lasix. Discussed with Pt concerning signs and symptoms to watch out for. Pt was instructed to follow up with their PCP and discussed with the patient their option to return to the ED at anytime for persistent or worsening symptoms. The appropriate anticipatory guidance and out-patient management, including indications for return to the emergency department, were explained at length to the patient and understood. Medication Reconcilliation Current Medication List: was personally reviewed by me Blood Pressure Screening Patient's blood pressure: Elevated blood pressure Blood pressure disposition: Elevated BP felt to be situational Impression Primary Impression: Dyspnea Additional Impression: CHF (congestive heart failure) Scribe Attestation The scribe's documentation has been prepared under my direction and personally reviewed by me in its entirety. I confirm that the note above accurately reflects all work, treatment, procedures, and medical decision making performed by me. Departure Information Dispostion Home / Self-Care Referrals Jovany El M.D. (PCP) Patient Instructions ED CHF General, [facility] Additional Instructions Please follow up with your primary care doctor or if you are a student, [facility] with in the next 24 hours. Any worsening of your symptoms, please return to the ED immediately. This includes any fevers greater than 100.4, worsening pain, chest pain, shortness breath, persistent nausea, vomiting, unable to eat or drink, or any other concerning signs or symptoms from your standpoint. You were found to have a blood pressure greater than 120 systolic over 90 diastolic. Due to the new Medicare guidelines, we are now recommending that you follow up with your primary care doctor in regards to this elevated blood pressure. Please contact your primary care doctor tomorrow in regards to dosing your Lasix. Problem Qualifiers Primary Impression: Dyspnea Dyspnea type: unspecified Qualified Codes: R06.00 - Dyspnea, unspecified Additional Impression: CHF (congestive heart failure) Congestive heart failure type: unspecified congestive heart failure type Congestive heart failure chronicity: unspecified congestive heart failure chronicity Qualified Codes: I50.9 - Heart failure, unspecified
== END 2017-02-04 11:44 | disposition home or self-care (01) ==
LOC: EDBD 06:49 → C.EDA 06:49
DX: I11.0 Hypertensive heart disease with heart failure (principal); I50.9 Heart failure, unspecified; I48.91 Unspecified atrial fibrillation; K74.60 Unspecified cirrhosis of liver; N18.3 Chronic kidney disease, stage 3 (moderate); E78.5 Hyperlipidemia, unspecified; G25.0 Essential tremor; E03.9 Hypothyroidism, unspecified; I34.0 Nonrheumatic mitral (valve) insufficiency; M81.0 Age-related osteoporosis without current pathological fracture; Z90.710 Acquired absence of both cervix and uterus; Z79.01 Long term (current) use of anticoagulants; Z79.899 Other long term (current) drug therapy

== ENCOUNTER → 2017-10-01 | Outpatient (CLI) | payer OTHER ==
[~2017-10-01] MED LIST changes: -LEVO125T4 PO; +LEVO125T5 PO
--- NOTE | 2017-10-02 13:18 | MAMMOGRAPHY REPORT ---
BILATERAL DIGITAL SCREENING MAMMOGRAM TOMOSYNTHESIS WITH CAD: 10/01/2017 CLINICAL HISTORY: Routine screening. Patient has no complaints. TECHNIQUE: Breast tomosynthesis in addition to standard 2D mammography was performed. Current study was also evaluated with a Computer Aided Detection (CAD) system. COMPARISON: Comparison is made to exams dated: 09/25/2016 mammogram, 09/23/2015 mammogram, 09/22/2014 m ammogram, 07/21/2013 mammogram, 07/18/2012 mammogram, and 07/26/2011 mammogram - [facility] nter. BREAST COMPOSITION: The tissue of both breasts is almost entirely fatty. FINDINGS: There is evidence of prior bilateral breast surgery. Stable asymmetries in the anterior as pect of each breast and scattered benign-appearing punctate calcifications. No new suspicious mass, architectural distortion or cluster of microcalcifications is seen. IMPRESSION: ACR BI-RADS CATEGORY 1: NEGATIVE There is no mammographic evidence of malignancy. A 1 year screening mammogram is recommended. The pa tient will receive written notification of the results. Approximately 10% of breast cancers are not detected with mammography. A negative mammographic report should not delay biopsy if a clinically suggestive mass is present. Syl Robert M.D. ay/:10/01/2017 17:03:32 Inventory Control Supervisor: Viky HARVEY)([place])([place]), [facility] letter sent: Normal 1/2 BI-RADS Code: ACR BI-RADS Category 1: Negative
== END | disposition home or self-care (01) ==
LOC: C.MAMM 13:14
PROVIDERS: ATTEND Family Medicine
DX: Z12.31 Encounter for screening mammogram for malignant neoplasm of breast (principal)

== ENCOUNTER 2018-05-21 16:09 | Inpatient (IN) ==
[2018-05-21] MEDS ORDERED: ALBUT/IPRATROP 3MG/0.5MG NEB 3 ML VIAL INH STA (16:29)
[2018-05-21] MEDS ORDERED: methylPREDNISolone 125 MG/2 ML VIAL IV STA (16:29)
[2018-05-21] MEDS ORDERED: SODIUM CHLORIDE 0.9% 1000ML 500 ML IV ONE (16:34)
--- NOTE | 2018-05-21 16:56 | Emergency Department Note ---
ED Provider Note CHIEF COMPLAINT: Short of breath, wheezing HISTORY OF PRESENTING ILLNESS: This is an 82-year-old female with past medical history significant for atrial fibrillation on Coumadin, hypertension, chronic kidney disease, and congestive heart failure, who presents to the emergency department by private vehicle from her PCPs office with concern for increased wheezing and shortness of breath. The patient states that she has been sick with cough over the past 5 days. She saw her PCP on Sunday, and was diagnosed with RSV. She was also placed on prednisone which she has taken for the past 3 days, but has not been improving. She saw her PCP again today, and he felt that she needed to come to the ER to be admitted to the hospital for continued respiratory care. She does have a history of atrial fibrillation, and states that when she gets albuterol her heart rate goes very fast. She denies any associated chest pain. She denies any fevers or chills. She has had a productive cough of white foamy sputum, she denies coughing up blood. She states that her shortness of breath has become significantly worse, and she activity or taking a few steps to the bathroom, which is unusual for her. She denies any symptoms of headache, neck pain, back pain, syncope, nausea/vomiting or diarrhea, urinary complaints, or an unusual rash. REVIEW OF SYSTEMS: A complete 10 point review of systems was reviewed with the patient with pertinent positives and negatives as per history of present illness. All else were negative. PAST MEDICAL HISTORY: Hypertension, atrial fibrillation, congestive heart failure, chronic kidney disease, hyperlipidemia, hypothyroidism SOCIAL HISTORY: Lives at home, denies tobacco use ALLERGIES: Reviewed in chart PHYSICAL EXAM: CONSTITUTIONAL: Pleasant and cooperative. Nontoxic appearing and no acute distress, but does appear to have moderate increased work of breathing. Moderately dehydrated. HEENT: Normocephalic, atraumatic. PERRL, EOMI. TMs normal. Pharynx normal. Dry mucous membranes. NECK: Supple, full active range of motion without discomfort. No cervical adenopathy. No JVD. RESPIRATORY: Diminished throughout with diffuse expiratory wheezing and scant rhonchi, no crackles or stridor heard. Equal expansion bilaterally. CARDIOVASCULAR: Tachycardic, irregularly irregular rate and rhythm with no murmurs, rubs or gallops. Normal peripheral perfusion. No peripheral edema. GASTROINTESTINAL: Soft, nontender, nondistended. No palpable masses or HSM. Bowel sounds present in all quadrants. MUSCULOSKELETAL: Full range of motion of all joints without discomfort. INTEGUMENTARY: No rash or other significant dermatologic conditions noted. NEUROLOGIC: Alert and oriented X 4 with normal affect. Normal strength and sensation in all 4 extremity's. Normal speech. Normal gait observed. ED COURSE AND MEDICAL DECISION MAKING: CC: Patient presenting with complaint of shortness of breath, wheezing DIFFERENTIAL DIAGNOSIS: Includes, but not limited to viral URI, bronchitis, pneumonia, RSV, influenza, COPD exacerbation, CHF exacerbation, respiratory failure, rapid atrial fibrillation, dehydration, electrolyte abnormality, among others. INTERPRETATION OF LABS: No leukocytosis, no anemia, normal platelets, mild hypokalemia, no other significant electrolyte abnormalities, elevated BUN with normal creatinine, normal liver enzymes. POC troponin is negative. Subtherapeutic INR. UA negative. IMAGING: SINGLE VIEW CHEST CLINICAL HISTORY: Dyspnea. Wheezing. FINDINGS: An AP, portable, upright chest radiograph is compared to study dated and correlated with chest CT dated 11/04/2015. The examination is degraded by portable technique and patient rotation. The heart is enlarged and there is atherosclerotic calcification of the thoracic aorta. There is mild pulmonary vascular congestion. A hiatal hernia is noted. There is bibasilar atelectasis, and linear atelectasis is noted in the right midlung. No large pleural effusion is identified. No pneumothorax is seen. The skeletal structures are osteopenic. Advanced degenerative change and chronic rotator cuff injury is noted in both shoulders. The bony thorax is grossly intact. IMPRESSION: 1. Cardiomegaly with evidence of mild congestive failure. 2. No large pleural effusion is identified. EKG: Shows atrial fibrillation with a rapid ventricular response and a rate of 114 bpm, T wave inversions noted in the anterolateral leads and ST segments mildly depressed in the lateral leads which appears new when compared to previous EKG from 02/04/2017 by my interpretation. MEDICATION RECONCILIATION: I attest that I have personally reviewed the patient 's current medication list. INITIAL VITAL SIGNS REVIEW: I reviewed the patient's initial vital signs and interpret them as follows: T: Afebrile; BP: Hypertensive; HR: Tachycardic; RR : Tachypneic; Pulse Ox: Within normal limits on room air. Blood pressure screening: The patient was found to have an elevated blood pressure and was referred to the inpatient hospitalist team for further management. MDM SUMMARY: Patient was evaluated at bedside, history and physical exam performed. Patient is alert and oriented, in no acute distress, but does appear to be short of breath and with increased work of breathing. I did note the patient to have sats of 90-91% with significant increased respiratory effort, and become extremely short of breath with minimal exertion, and I did not feel she was a good candidate for an ambulatory pulse ox. Diminished lung sounds with diffuse expiratory wheezing. She is tachypneic and with accessory muscle use, but can speak in full sentences. No peripheral pitting edema or JVD to suggest fluid overload. EKG reviewed at bedside, noting rapid A. fib with T wave inversions and slight ST depression in the lateral leads, which appears new from previous EKG. Orders were placed at bedside for labs, POC troponin, UA, 500 mL IV fluid bolus for cautious hydration, DuoNeb treatment, IV Solu-Medrol 125 mg, and chest x- ray to evaluate for cardiopulmonary disease. Patient discussed with Dr. Gillette, who also evaluated the patient and agrees with my assessment, plan, and disposition. Labs and imaging reviewed as above, no significant lab abnormalities, chest x- ray does not show any evidence of pneumonia. Troponin is negative. Patient continues to deny any chest pain. The patient is reportedly positive for RSV and negative for influenza. Patient reassessed multiple times throughout ED stay, she has remained hemodynamically stable, her breathing is improved with nebulizer treatments and oxygen, and she remains chest pain-free. Patient does continue to have significant expiratory wheezing, accessory muscle use, and is still short of breath with minimal exertion, I did feel that she would benefit from inpatient admission. The patient was updated on all results and plan for admission, she verbalized understanding and was agreeable to this plan. I spoke on the phone with Cony Stephenson PA-C with the [facility] hospitalist service, who agrees to evaluate the patient for admission. The patient was stable at time of admission. The chart was completed utilizing [employer] Speech voice recognition software. Grammatical errors, random word insertions, pronoun errors, and incomplete sentences are an occasional consequence of this system due to software limitations, ambient noise, and hardware issues. Any formal questions or concerns about the content, text, or information contained within the body of this dictation should be directly addressed to the nurse practitioner for clarification. Impression & Plan RSV (respiratory syncytial virus infection), Atrial fibrillation, Shortness of breath Past Med/Surg History Medical History Hypertension (Chronic) Atrial fibrillation (Chronic) Warfarin anticoagulation (Chronic) Hypothyroidism (Chronic) Mild mitral regurgitation (Chronic) Dyslipidemia (Chronic) Osteoporosis (Chronic) Essential tremor (Chronic) HTN (hypertension) (Chronic) Cirrhosis of liver (Chronic) "noted on CT abdomen [facility] 10/31/15" CKD (chronic kidney disease), stage III (Chronic) Dyspnea CHF (congestive heart failure) (Acute) Echo 02/2018 The examination is adequate to evaluate the referral indication. The left ventricular cavity size is normal. The qualitative LV ejection fraction is 55-59% (normal). The right ventricular systolic function is normal as assessed by tricuspid annular plane systolic excursion (TAPSE) (normal >1.7 cm). The left atrium is severely enlarged (>48 ml/m^2,). The right atrium is moderately enlarged. There is moderate mitral annular calcification. Moderate mitral regurgitation is present. Mild tricuspid regurgitation is present. Chest pain radiating to arm (Acute) Surgical History History of hysterectomy (Chronic) H/O colonoscopy (Chronic) S/P reduction mammoplasty (Chronic) H/O bladder repair surgery (Chronic) Family History Father , age 54 Heart attack Mother , age 75 Heart attack Social History marital status: Current Living Situation: Family Current Living Situation Comment: Lives with son. Other Information That Helps Us Care for You: No Feels Safe at Home: Yes Safety Concerns: Feels Safe At This Time Smoking Status: Never smoker Do You Dip or Chew Tobacco: No Hx Alcohol Use: Yes Alcohol type: wine Alcohol Intake Frequency: holidays/ special occasions only Hx Substance Use: No Beliefs That Will Affect Care: None Preferred Language: Comoran Communication Ability: Effective Public Health Educator Required: No Results & Data Vital Signs Vital Signs - 24 hr 05/21/18 16:14 05/21/18 16:57 05/21/18 17:00 Temperature 36.3 C L Temperature Source Oral Sepsis Recent Fever Within 48 Hours No Sepsis Action Taken by Nursing No Action Required Pulse Rate 131 H Pulse Rate [Apical] Pulse Rate [Finger] Pulse Rhythm [Apical] Pulse Strength [Apical] Respiratory Rate 26 H Respiratory Effort / Characteristics Respiratory Depth Respiratory Pattern Blood Pressure [Right Arm] Blood Pressure Mean [Right Arm] Blood Pressure Position Sitting Blood Pressure Position [Right Arm] Pulse Oximetry 95 97 91 Oxygen Delivery Method Room Air Nebulizer Room Air Nasal Cannula Oxygen Flow Rate 0 05/21/18 17:08 05/21/18 18:23 05/21/18 19:51 Temperature Temperature Source Sepsis Recent Fever Within 48 Hours Sepsis Action Taken by Nursing Pulse Rate Pulse Rate [Apical] 113 H 102 H 115 H Pulse Rate [Finger] Pulse Rhythm [Apical] Regular Pulse Strength [Apical] Respiratory Rate 21 15 18 Respiratory Effort / Characteristics Non-Labored Non-Labored Respiratory Depth Normal Normal Normal Respiratory Pattern Regular Regular Blood Pressure [Right Arm] 175/91 H 146/95 H 135/104 H Blood Pressure Mean [Right Arm] 119 112 114 Blood Pressure Position Blood Pressure Position [Right Arm] Sitting Sitting Pulse Oximetry 95 98 96 Oxygen Delivery Method Nasal Cannula Nasal Cannula Nasal Cannula Oxygen Flow Rate 2 2 2 05/21/18 20:15 05/21/18 21:14 05/22/18 00:19 Temperature 36.6 C 36.5 C Temperature Source Oral Oral Sepsis Recent Fever Within 48 Hours Sepsis Action Taken by Nursing Pulse Rate Pulse Rate [Apical] 114 H 113 H Pulse Rate [Finger] 93 H Pulse Rhythm [Apical] Irregular Pulse Strength [Apical] Normal Respiratory Rate 22 28 H 23 Respiratory Effort / Characteristics Non-Labored Spontaneous SOB on Exertion Labored Respiratory Depth Shallow Respiratory Pattern Regular Blood Pressure [Right Arm] 152/95 H 144/87 H Blood Pressure Mean [Right Arm] 114 106 Blood Pressure Position Blood Pressure Position [Right Arm] Lying Lying Pulse Oximetry 96 97 98 Oxygen Delivery Method Nasal Cannula Nasal Cannula Nasal Cannula Oxygen Flow Rate 2 4 4 Laboratory Data Result diagrams: 05/21/18 16:51 05/21/18 16:51 Lab Results 05/21/18 05/21/18 05/21/18 Range/Units 16:51 16:51 16:51 WBC 9.36 (4.8-10.8) K/uL RBC 4.69 (4.2-5.4) M/uL Hgb 13.5 (12.0-16.0) g/dL Hct 41.1 (37-47) % MCV 87.6 (80-100) fL MCH 28.8 (25-34) pg MCHC 32.8 (32-36) g/dL RDW Std Deviation 43.9 (36.4-46.3) fL RDW Coeff of Rocío 13.7 (11.5-14.5) % Plt Count 292 (130-400) K/uL MPV 9.8 (7.4-10.4) fL Immature Gran % (Auto) 0.4 % Neut % (Auto) 92.9 % Lymph % (Auto) 4.1 % Amelia % (Auto) 2.5 % Eos % (Auto) 0.0 % Baso % (Auto) 0.1 % Immature Gran # (Auto) 0.04 H (0.00-0.02) K/uL Neut # (Auto) 8.70 H (1.4-6.5) K/uL Lymph # (Auto) 0.38 L (1.2-3.4) K/uL Amelia # (Auto) 0.23 (0.11-0.59) K/uL Eos # (Auto) 0.00 (0-0.5) K/uL Baso # (Auto) 0.01 (0-0.2) K/uL PT 12.1 H (9.0-12.0) Seconds INR 1.2 H (0.9-1.1) APTT 27.6 (21.0-31.0) Seconds PTT Ratio 1.1 Sodium 140 (136-145) mmol/L Potassium 3.2 L (3.5-5.1) mmol/L Chloride 105 (98-107) mmol/L Carbon Dioxide 25 (21-32) mmol/L Anion Gap 11.0 (3-11) BUN 24 H (7-18) mg/dl Creatinine 0.97 (0.6-1.2) mg/dl Est Cr Clr Drug Dosing 43.1 ml/min Est GFR ( Amer) 63.0 Est GFR (Non-Af Amer) 54.4 BUN/Creatinine Ratio 24.9 H (10-20) Glucose 136 H (70-99) mg/dl Calcium 8.9 (8.5-10.1) mg/dl Magnesium (1.8-2.4) mg/dl Total Bilirubin 1.0 (0.2-1) mg/dl AST 49 H (15-37) U/L ALT 37 (12-78) U/L Alkaline Phosphatase 83 (45-117) U/L POC Troponin I (0-0.045) ng/ml Total Protein 7.2 (6.4-8.2) gm/dl Albumin 3.6 (3.4-5.0) gm/dl Globulin 3.6 (2.5-4.0) gm/dl Albumin/Globulin Ratio 1.0 (0.9-2) Urine Color Urine Appearance (Clear) Urine pH (4.5-7.5) Ur Specific Tyro (1.000-1.030) Urine Protein (Negative) Urine Glucose (UA) (Negative) Urine Ketones (Negative) Urine Blood (Negative) Urine Nitrite (Negative) Urine Bilirubin (Negative) Urine Urobilinogen (Negative) Ur Leukocyte Esterase (Negative) Urine WBC (Auto) (0-5) /hpf Urine RBC (Auto) (0-4) /hpf U Hyaline Cast (Auto) (0-5) /lpf U Epithel Cells (Auto) (0-5) /lpf Urine Bacteria (Auto) (Negative) 05/21/18 05/21/18 05/21/18 Range/Units 16:51 17:03 21:51 WBC (4.8-10.8) K/uL RBC (4.2-5.4) M/uL Hgb (12.0-16.0) g/dL Hct (37-47) % MCV (80-100) fL MCH (25-34) pg MCHC (32-36) g/dL RDW Std Deviation (36.4-46.3) fL RDW Coeff of Rocío (11.5-14.5) % Plt Count (130-400) K/uL MPV (7.4-10.4) fL Immature Gran % (Auto) % Neut % (Auto) % Lymph % (Auto) % Amelia % (Auto) % Eos % (Auto) % Baso % (Auto) % Immature Gran # (Auto) (0.00-0.02) K/uL Neut # (Auto) (1.4-6.5) K/uL Lymph # (Auto) (1.2-3.4) K/uL Amelia # (Auto) (0.11-0.59) K/uL Eos # (Auto) (0-0.5) K/uL Baso # (Auto) (0-0.2) K/uL PT (9.0-12.0) Seconds INR (0.9-1.1) APTT (21.0-31.0) Seconds PTT Ratio Sodium (136-145) mmol/L Potassium (3.5-5.1) mmol/L Chloride (98-107) mmol/L Carbon Dioxide (21-32) mmol/L Anion Gap (3-11) BUN (7-18) mg/dl Creatinine (0.6-1.2) mg/dl Est Cr Clr Drug Dosing ml/min Est GFR ( Amer) Est GFR (Non-Af Amer) BUN/Creatinine Ratio (10-20) Glucose (70-99) mg/dl Calcium (8.5-10.1) mg/dl Magnesium 2.0 (1.8-2.4) mg/dl Total Bilirubin (0.2-1) mg/dl AST (15-37) U/L ALT (12-78) U/L Alkaline Phosphatase (45-117) U/L POC Troponin I < 0.03 (0-0.045) ng/ml Total Protein (6.4-8.2) gm/dl Albumin (3.4-5.0) gm/dl Globulin (2.5-4.0) gm/dl Albumin/Globulin Ratio (0.9-2) Urine Color Yellow Urine Appearance Cloudy H (Clear) Urine pH 5.0 (4.5-7.5) Ur Specific Tyro 1.010 (1.000-1.030) Urine Protein Negative (Negative) Urine Glucose (UA) Negative (Negative) Urine Ketones Negative (Negative) Urine Blood Negative (Negative) Urine Nitrite Negative (Negative) Urine Bilirubin Negative (Negative) Urine Urobilinogen Negative (Negative) Ur Leukocyte Esterase Negative (Negative) Urine WBC (Auto) 0 (0-5) /hpf Urine RBC (Auto) 0-4 (0-4) /hpf U Hyaline Cast (Auto) 1-5 (0-5) /lpf U Epithel Cells (Auto) 5-10 H (0-5) /lpf Urine Bacteria (Auto) Negative (Negative) Administered Medications Enoxaparin Sodium (Lovenox) 80 mg 1 mg/kg (80 mg) SC Q12 [facility] Stop: 06/20/18 20:59 Last Admin: 05/21/18 21:56 Dose: 80 mg Fluticasone Propionate (Flovent Hfa 110mch) 2 puffs INH BID [facility] Stop: 06/20/18 20:59 Last Admin: 05/21/18 21:57 Dose: 2 puffs Methylprednisolone 40 mg/ (Syringe) 0.64 mls @ 1.5 mls/min IV Q6H [facility] Stop: 06/21/18 00:00 Last Admin: 05/22/18 00:45 Dose: 1.5 mls/min Levalbuterol HCl (Xopenex 0.63 Mg/3 Ml Neb) 0.63 mg NEB Q6R [facility] Stop: 06/20/18 20:27 Last Admin: 05/21/18 21:09 Dose: 0.63 mg Metoprolol Succinate (Toprol Xl) 50 mg PO BID [facility] Stop: 06/20/18 20:59 Last Admin: 05/21/18 21:59 Dose: 50 mg Multivitamins/Minerals (Caltrate Plus) 1 tab PO TID [facility] Stop: 06/20/18 20:59 Last Admin: 05/21/18 21:58 Dose: 1 tab Simvastatin (Zocor) 20 mg PO HS [facility] Stop: 06/20/18 20:59 Last Admin: 05/21/18 21:59 Dose: 20 mg Warfarin Sodium (Coumadin) 4 mg PO SuTuThSa@1600 [facility]; Protocol Stop: 06/20/18 20:27 Last Admin: 05/21/18 22:00 Dose: 4 mg Discontinued Medications Albuterol (Duoneb) 3 ml INH NOW [facility] Stop: 05/21/18 16:30 Last Admin: 05/21/18 16:40 Dose: 3 ml Albuterol (Duoneb) 3 ml NEB NOW ST[facility] Stop: 05/21/18 17:44 Last Admin: 05/21/18 17:54 Dose: 3 ml Furosemide (Lasix) 60 mg IV TODAY@1830 ONE Stop: 05/21/18 18:31 Last Admin: 05/21/18 19:12 Dose: 60 mg Sodium Chloride (Nss 1000ml) 500 mls @ 999 mls/hr IV .Q31M ONE Stop: 05/21/18 17:04 Last Infusion: 05/21/18 17:40 Dose: 0 mls/hr Admin: 05/21/18 17:08 Dose: 999 mls/hr Methylprednisolone (Solumedrol) 125 mg IV NOW STA Stop: 05/21/18 16:30 Last Admin: 05/21/18 17:08 Dose: 125 mg Potassium Chloride (Klor-Con M10) 40 meq PO NOW STA Stop: 05/21/18 18:25 Last Admin: 05/21/18 19:12 Dose: 40 meq Discharge Plan Visit Data *Final* Discharge Date/Time: 05/21/18 19:28 Chief Complaint: Respiratory Problems Stated Complaint: SEVERE BRONCHITIS ED Provider: Aba Gillette ED Midlevel Provider: Lauren Rivera Discharge Problem: RSV (respiratory syncytial virus infection), Atrial fibrillation, Shortness of breath Patient Disposition: Admitted As Inpatient Condition: Fair Discharge Instructions Interventions: ED Discharge Assessment Last Done: 05/21/18 19:28
[2018-05-21 17:05] LABS: Basophils # (auto) 0.01 K/uL (0-0.2); Basophils % (auto) 0.1 %; Hematocrit (blood only) 41.1 % (37-47); Hemoglobin 13.5 g/dL (12.0-16.0); Immature Granulocytes # (auto) 0.04 K/uL (0.00-0.02); Immature Granulocytes % (auto) 0.4 %; Lymphocytes # (auto) 0.38 K/uL (1.2-3.4); Lymphocytes % (auto) 4.1 %; Mean Corpuscular Hgb Conc 32.8 g/dL (32-36); Mean Corpuscular Volume 87.6 fL (80-100); Mean Platelet Volume 9.8 fL (7.4-10.4); Monocytes # (auto) 0.23 K/uL (0.11-0.59); Monocytes % (auto) 2.5 %; Neutrophils % (auto) 92.9 %; Platelet Count 292 K/uL (130-400); RDW Coefficient of Variation 13.7 % (11.5-14.5); RDW Standard Deviation 43.9 fL (36.4-46.3); Red Blood Count 4.69 M/uL (4.2-5.4); White Blood Count 9.36 K/uL (4.8-10.8)
--- NOTE | 2018-05-21 17:06 | Emergency Department Note ---
ED Visit Note This Patient was discussed with the nurse practitioner, HUMBLE Keita. The pertinent historical and physical exam findings were confirmed. I agree with the studies ordered and with the interpretations of these studies. I agree with the disposition and care plan. .
[2018-05-21 17:16] LABS: Albumin Level 3.6 gm/dl (3.4-5.0); BUN Creatinine Ratio 24.9 (10-20); Calcium 8.9 mg/dl (8.5-10.1); Creatinine Clr Calc Pharmacy 43.1 ml/min; Est GFR (Non-African American) 54.4; Potassium 3.2 mmol/L (3.5-5.1)
[2018-05-21 17:19] LABS: Globulin 3.6 gm/dl (2.5-4.0); Total Protein 7.2 gm/dl (6.4-8.2)
[2018-05-21 17:23] LABS: INR 1.2 (0.9-1.1); Partial Thromboplastin Ratio 1.1; Partial Thromboplastin Time 27.6 Seconds (21.0-31.0); Prothrombin Time 12.1 Seconds (9.0-12.0)
--- NOTE | 2018-05-21 17:28 | XRay Report ---
SINGLE VIEW CHEST CLINICAL HISTORY: Dyspnea. Wheezing. FINDINGS: An AP, portable, upright chest radiograph is compared to study dated 02/04/2017 and correlat ed with chest CT dated 11/04/2015. The examination is degraded by portable technique and patient rotat ion. The heart is enlarged and there is atherosclerotic calcification of the thoracic aorta. There i s mild pulmonary vascular congestion. A hiatal hernia is noted. There is bibasilar atelectasis, and l inear atelectasis is noted in the right midlung. No large pleural effusion is identified. No pneumoth orax is seen. The skeletal structures are osteopenic. Advanced degenerative change and chronic rotato r cuff injury is noted in both shoulders. The bony thorax is grossly intact. IMPRESSION: 1. Cardiomegaly with evidence of mild congestive failure. 2. No large pleural effusion is identified. Electronically signed by: Benitez Galicia M.D. 05/21/2018 5:26 PM
[2018-05-21] MEDS ORDERED: ALBUT/IPRATROP 3MG/0.5MG NEB 3 ML VIAL NEB STA (17:43)
[2018-05-21] MEDS ORDERED: POTASSIUM CHLORIDE 10 MEQ TABCR PO STA (18:24)
[2018-05-21] MEDS ORDERED: FUROSEMIDE 40 MG/4 ML VIAL IV ONE (18:30)
--- NOTE | 2018-05-21 18:33 | History & Physical Report ---
Date of Service May 21, 2018 Assessment & Plan (1) Acute asthma exacerbation: -IV methylprednisolone 40 mg IV every 6 hours -Xopenex every 6 hours -Aggressive pulmonary toilet with incentive spirometry, mucolytics, flutter valve -continue advair as prescribed -Oxygen as needed (2) RSV (respiratory syncytial virus infection): -droplet precautions -plan as above with aggressive pulmonary toilet (3) Atrial fibrillation: -continue metoprolol succinate as prescribed -INR subtherapeutic secondary to patient not taking warfarin due to not feeling well -Initiate Lovenox 1mg/kg SQ Q12 until INR >2.0 -continue warfarin -INR in a.m. (4) CHF (congestive heart failure): -CXR consistent with pulmonary vascular congestion -give lasix 60mg IV x 1 now -continue outpatient regimen on lasix, aldactone, lisinopril, metoprolol -daily weights -I and O -heart healthy diet (5) Hypokalemia: -Give KCL 40meq x 1 now -continue daily KCL 10meq -monitor bmp and replete as necessary (6) Hypothyroidism: -continue levothyroxine (7) HTN (hypertension): -blood pressure elevated upon admission, most likely in setting of vascular congestion and not taking oral outpatient meds -Give 60mg IV lasix x 1 now -continue oral outpatient meds including lisinopril, aldactone, metoprolol, lasix -monitor bp closely (8) Dyslipidemia: -continue statin (9) CKD (chronic kidney disease), stage III: -Bun/Cr stable at 24/0.97 -monitor bmp (10) DVT prophylaxis: -Lovenox SQ 1mg/kg q12 hr until INR therapeutic > 2.0 -continue warfarin 4mg MWF, 2mg all other days -INR in a.m. Disposition: to be determined Follow up: PCP Dr. El upon discharge Patient was seen in collaboration with, Dr Russo, please see addendum. Dr. Russo will be taking over patient care starting 05/22/17. History of Present Illness Chief Complaint: SOB x 4-5 days. Primary Care Provider: Jovany El This is an 82-year-old female who has a significant PMH of atrial fibrillation anticoagulated on warfarin, hypothyroidism, CKD stage III, hyperlipidemia, HTN, diastolic CHF, asthma, hepatic cirrhosis, anxiety who presents to [facility] secondary to cough, shortness of breath times 4-5 days. Friend is at bedside. She complains of cough with thick, clear sputum, shortness of breath with exertion and at rest, wheezing, temperature of 99.8. She initially presented to outpatient weekend clinic in which influenza swab was negative, but test positive for RSV. She was given prednisone pack without relief. She has been doing her albuterol inhaler w/o relief. Appetite has been poor for the past 2-3 days therefore she has not taken any of her medications, "I can't take medications on an empty stomach." Denies chills, sweats, lightheadedness, dizziness, chest pain, hemoptysis, nausea, vomiting, diarrhea, abdominal pain, change in urinary or bowel habits. Allergies Allergy/AdvReac Type Severity Reaction Status Date / Time epinephrine AdvReac Severe SEVERE Verified 02/04/17 07:09 TACHYCARDIA Beta-Blockers AdvReac Intermediate CHF Verified 02/04/17 07:09 (Beta-Adrenergic Bloc sotalol AdvReac Intermediate CHF Verified 02/04/17 07:09 Home Medications Home Medications Medication Instructions Recorded Confirmed Type albuterol sulfate 2 puff INHALATION Q6H PRN 05/21/18 05/21/18 History calcium carbonate-vitamin D3 1 tab PO TID 05/21/18 05/21/18 History [Calcium 500 + D (D3)] escitalopram oxalate 10 mg PO DAILY 05/21/18 05/21/18 History fluticasone [Flovent HFA] 2 inhaler INHALATION BID 05/21/18 05/21/18 History furosemide [Lasix] 40 mg PO DAILY 05/21/18 05/21/18 History levothyroxine 125 mcg PO DAILY 05/21/18 05/21/18 History lisinopril 10 mg PO DAILY 05/21/18 05/21/18 History lorazepam 0.5 mg PO TID PRN 05/21/18 05/21/18 History metoprolol succinate 50 mg PO BID 05/21/18 05/21/18 History montelukast 10 mg PO DAILY 05/21/18 05/21/18 History multivitamin 1 tab PO DAILY 05/21/18 05/21/18 History nitroglycerin [Nitrostat] 0.4 mg SUBLINGUAL UD PRN 05/21/18 05/21/18 History omeprazole 20 mg PO DAILY 05/21/18 05/21/18 History potassium chloride 10 meq PO DAILY 05/21/18 05/21/18 History simvastatin 20 mg PO HS 05/21/18 05/21/18 History spironolactone [Aldactone] 25 mg PO DAILY 05/21/18 05/21/18 History warfarin 4 mg PO MOWEFR 05/21/18 05/21/18 History warfarin 4 mg PO SUTUTHSA 05/21/18 05/21/18 History Past Med/Surg History Medical History Hypertension (Chronic) Atrial fibrillation (Chronic) Warfarin anticoagulation (Chronic) Hypothyroidism (Chronic) Mild mitral regurgitation (Chronic) Dyslipidemia (Chronic) Osteoporosis (Chronic) Essential tremor (Chronic) HTN (hypertension) (Chronic) Cirrhosis of liver (Chronic) "noted on CT abdomen [facility] 10/31/15" CKD (chronic kidney disease), stage III (Chronic) Dyspnea CHF (congestive heart failure) (Acute) Echo 02/2018 The examination is adequate to evaluate the referral indication. The left ventricular cavity size is normal. The qualitative LV ejection fraction is 55-59% (normal). The right ventricular systolic function is normal as assessed by tricuspid annular plane systolic excursion (TAPSE) (normal >1.7 cm). The left atrium is severely enlarged (>48 ml/m^2,). The right atrium is moderately enlarged. There is moderate mitral annular calcification. Moderate mitral regurgitation is present. Mild tricuspid regurgitation is present. Chest pain radiating to arm (Acute) Surgical History History of hysterectomy (Chronic) H/O colonoscopy (Chronic) S/P reduction mammoplasty (Chronic) H/O bladder repair surgery (Chronic) Family History Father , age 54 Heart attack Mother , age 75 Heart attack Social History marital status: Current Living Situation: Family Current Living Situation Comment: son and grandson Feels Safe at Home: Yes Smoking Status: Never smoker Hx Alcohol Use: No Hx Substance Use: No Preferred Language: Palauan Communication Ability: Effective Review of Systems All systems reviewed & are unremarkable except as noted in HPI & below Physical Exam 2 Vital Signs (Past 24 Hours): Last Vital Signs Temp 36.3 C L 05/21/18 16:14 Pulse 102 H 05/21/18 18:23 Resp 15 05/21/18 18:23 BP 146/95 H 05/21/18 18:23 Pulse Ox 98 05/21/18 18:23 Physical Exam: Gen: Elderly, obese, F, WD/WN, increased inspiratory effort, sitting up in bed, pleasant, conversing easily but dsypneic with conversation Head: Normocephalic, Atraumatic Eyes: Sclera normal, no conjunctival injection, PERRLA, EOMI ENT: Gross hearing intact, normal pharynx, mucous membranes moist Neck: supple, no adenopathy, No JVD, no bruit, Resp:Diffuse exp wheezing b/l and throughout with rhonchi, Increased insp/exp effort, no accessory muscle use CV: Irregular rate, irregular rhythm, no murmur, rub, gallop, or ectopy Abd: +obese, +BS x 4, soft, nontender, nondistended Musculoskeletal: moves extremities active rom x 4, strength intact, 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 Extremities: trace edema bilaterally, b/l +2 pedal pulse Skin: warm, moist, no rash, negative turgor, cap refill < 2sec Neuro: Alert and oriented x 3, speech normal, good mood/affect, cran nerve 2-12 intact grossly : deferred Results & Data Laboratory Results Short CBC 05/21/18 Range/Units 16:51 WBC 9.36 (4.8-10.8) K/uL Hgb 13.5 (12.0-16.0) g/dL Hct 41.1 (37-47) % Plt Count 292 (130-400) K/uL BMP 05/21/18 16:51 Sodium 140 Potassium 3.2 L Chloride 105 Carbon Dioxide 25 BUN 24 H Creatinine 0.97 Glucose 136 H Calcium 8.9 Liver Function 05/21/18 Range/Units 16:51 Total Bilirubin 1.0 (0.2-1) mg/dl AST 49 H (15-37) U/L ALT 37 (12-78) U/L Alkaline Phosphatase 83 (45-117) U/L Albumin 3.6 (3.4-5.0) gm/dl INFLUENZA A/B AND RSV PCR Order: [id number] Status: Final result Visible to patient: No (Inaccessible in [facility]) Next appt: 06/11/2018 at 01:30 PM in *[facility]* ([facility]) Dx: Cough with fever Ref Range & Units 3d ago Resulting Agency SPECIMEN DESCRIPTION NASOPHARYNX R FLU A PCR RESULT NEG NEGATIVE B8078G FLU B PCR RESULT NEG NEGATIVE M2884W RSV PCR RESULT NEG POSITIVE Abnormal E3627V COMMENT NO INFLUENZA A RNA DETECTED BY PCR (AMPLIFIED PROBE) [id number] COMMENT NO INFLUENZA B RNA DETECTED BY PCR (AMPLIFIED PROBE) [id number] COMMENT RESPIRATORY SYNCYTIAL VIRUS RNA DETECTED BY PCR (AMPLIFIED PROBE) [id number] Comment: TEST RESULTS REPORTED TO [place] [facility]. Diagnostic Findings CXR: IMPRESSION: 1. Cardiomegaly with evidence of mild congestive failure. 2. No large pleural effusion is identified. ECG Rate (beats per minute): 114 Rhythm: atrial fibrillation Findings: + prolonged QT (576ms) Code Status & VTE Plan Code Status Full Code VTE Prophylaxis Plan VTE Prophylaxis will be ordered: Yes Supervising Physician Co-Signing Physician Notes I saw this patient with the physician medical practice assistant, I participated in the history, physical, review of systems, and physical exam. I reviewed the medications with the patient and the physician medical practice assistant and helped reconcile the medications. I helped take a detailed family and social history as well. I formulated the assessment and plan personally with the physician medical practice assistant and went over it with the patient. _ (1) CHF (congestive heart failure) Heart failure chronicity: unspecified Heart failure type: diastolic Qualified Code(s): I50.30 - Unspecified diastolic (congestive) heart failure (2) Atrial fibrillation Atrial fibrillation type: paroxysmal Qualified Code(s): I48.0 - Paroxysmal atrial fibrillation (3) Hypothyroidism Hypothyroidism type: unspecified Qualified Code(s): E03.9 - Hypothyroidism, unspecified (4) Acute asthma exacerbation Asthma persistence: persistent Asthma severity: moderate Qualified Code(s): J45.41 - Moderate persistent asthma with (acute) exacerbation (5) HTN (hypertension) Hypertension type: essential hypertension Qualified Code(s): I10 - Essential (primary) hypertension
[2018-05-21] MEDS ORDERED: POLYETHYLENE (MIRALAX) 17 GM PACK PO PRN (20:28)
[2018-05-21] MEDS ORDERED: LORazepam 0.5 MG TAB PO PRN (20:28)
[2018-05-21] MEDS ORDERED: ALUMINUM/MAGNESIUM SUSP 30 ML UDC PO PRN (20:28)
[2018-05-21] MEDS ORDERED: ONDANSETRON INJ 2 MG/ML 2 ML VIAL IV PRN (20:28)
[2018-05-21] MEDS ORDERED: NITROGLYCERIN SL 0.4 MG/TAB TAB SL PRN (20:28)
[2018-05-21] MEDS ORDERED: ACETAMINOPHEN 325 MG TAB PO PRN (20:28)
[2018-05-21] MEDS ORDERED: MAGNESIUM HYDROXIDE SUSP 30 ML UDC PO PRN (20:28)
[2018-05-21] MEDS ORDERED: GUAIFENESIN/DEXTROM SYRUP 100MG/10MG 5ML UDC PO PRN (20:28)
[2018-05-21] MEDS: LEVALBUTEROL HCL 0.63 MG/3 ML NEB NEB SCH (21:09)
[2018-05-21] MEDS: ENOXAPARIN 80 MG/0.8 ML SYR SC SCH (21:56)
[2018-05-21] MEDS: FLUTICASONE HFA 110MCG INHALER INH SCH (21:57)
[2018-05-21] MEDS: CALCIUM 600MG + VIT D 400 IU TAB PO SCH (21:58)
[2018-05-21] MEDS: SIMVASTATIN 20 MG TAB PO SCH (21:59)
[2018-05-21] MEDS: METOPROLOL SUCC 50MG EXT REL TAB PO SCH (21:59)
[2018-05-21] MEDS: WARFARIN SOD 4 MG TAB PO SCH (22:00)
[2018-05-21 23:33] LABS: Appearance Urine Cloudy (Clear); Bacteria Urine Automated Negative (Negative); Bilirubin Urine Negative (Negative); Color Urine Yellow; Glucose Urine UA Negative (Negative); Ketones Urine Negative (Negative); Leukocyte Esterase Urine Negative (Negative); Nitrite Urine Negative (Negative); Protein Urine Negative (Negative); Urobilinogen Urine Negative (Negative); WBC Urine Automated 0 /hpf (0-5)
[2018-05-22] MEDS: methylPREDNISolone 40 MG in SYRINGE 0 ML IV SCH ×4 (00:45→18:38)
[2018-05-22] MEDS: LEVALBUTEROL HCL 0.63 MG/3 ML NEB NEB SCH ×4 (01:50→19:12)
[2018-05-22] MEDS: LEVOTHYROXINE SODIUM 125 MCG TABLET PO SCH (06:04)
[2018-05-22 06:51] LABS: Basophils # (auto) 0.01 K/uL (0-0.2); Basophils % (auto) 0.1 %; Hematocrit (blood only) 41.1 % (37-47); Hemoglobin 13.4 g/dL (12.0-16.0); Immature Granulocytes # (auto) 0.03 K/uL (0.00-0.02); Immature Granulocytes % (auto) 0.4 %; Lymphocytes # (auto) 0.61 K/uL (1.2-3.4); Lymphocytes % (auto) 8.6 %; Mean Corpuscular Hgb Conc 32.6 g/dL (32-36); Mean Platelet Volume 10.1 fL (7.4-10.4); Monocytes # (auto) 0.19 K/uL (0.11-0.59); Monocytes % (auto) 2.7 %; Neutrophils # (auto) 6.23 K/uL (1.4-6.5); Neutrophils % (auto) 88.2 %; Platelet Count 272 K/uL (130-400); RDW Coefficient of Variation 13.8 % (11.5-14.5); RDW Standard Deviation 44.6 fL (36.4-46.3); Red Blood Count 4.62 M/uL (4.2-5.4); White Blood Count 7.07 K/uL (4.8-10.8)
[2018-05-22 07:03] LABS: INR 1.2 (0.9-1.1); Prothrombin Time 11.6 Seconds (9.0-12.0)
[2018-05-22 07:33] LABS: BUN Creatinine Ratio 27.6 (10-20); Calcium 8.9 mg/dl (8.5-10.1); Creatinine Clr Calc Pharmacy 46.1 ml/min; Est GFR (African American) 64.6; Est GFR (Non-African American) 55.8; Magnesium 2.1 mg/dl (1.8-2.4); Potassium 3.7 mmol/L (3.5-5.1)
[2018-05-22] MEDS: CALCIUM 600MG + VIT D 400 IU TAB PO SCH ×3 (08:01→19:59)
[2018-05-22] MEDS: METOPROLOL SUCC 50MG EXT REL TAB PO SCH ×2 (08:01→19:59)
[2018-05-22] MEDS: MONTELUKAST SODIUM 10 MG TABLET PO SCH (08:02)
[2018-05-22] MEDS: PANTOprazole 40 MG TAB PO SCH (08:02)
[2018-05-22] MEDS: FUROSEMIDE 40 MG TAB PO SCH (08:02)
[2018-05-22] MEDS: SPIRONOLACTONE 25 MG TAB PO SCH (08:02)
[2018-05-22] MEDS: ENOXAPARIN 80 MG/0.8 ML SYR SC SCH ×2 (08:03→20:00)
[2018-05-22] MEDS: POTASSIUM CHLORIDE 10 MEQ TABCR PO SCH (08:03)
[2018-05-22] MEDS: MULTIVITAMIN TAB PO SCH (08:03)
[2018-05-22] MEDS: ESCITALOPRAM OXALATE 10 MG TAB PO SCH (08:03)
[2018-05-22] MEDS: FLUTICASONE HFA 110MCG INHALER INH SCH ×2 (08:04→20:00)
--- NOTE | 2018-05-22 08:46 | Cardiology Consultation ---
Date of Consultation May 22, 2018 Assessment & Plan (1) RSV (respiratory syncytial virus infection): RSV is complicated with acute exacerbation of asthma along with diastolic heart failure in this elderly patient. (2) Acute asthma exacerbation: Continue steroids and bronchodilators. (3) Atrial fibrillation: Atrial fibrillation is most likely chronic at this point. 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 I would recommend rate control and anticoagulation. (4) Diastolic heart failure: Continue diuretics for now. Clinically the patient has improved. History of Present Illness Reason for Consultation: Atrial fibrillation Attending Physician: Lukas Russo DO History of Present Illness History: This is a pleasant 82-year-old female who lives by herself. She follows with Dr. Reid through our clinic with a history of atrial fibrillation , diastolic heart failure and moderate mitral regurgitation. She had been doing well at home until the last few days she developed a respiratory infection which is most likely viral. She does have a history of mild asthma and over the weekend her symptoms progressed. She was seen by her primary care physician who recommended a hospital admission. She was given IV diuretics and started on bronco dilators as well as steroids. She feels markedly improved. She denies chest pain or orthopnea. Her first set of cardiac markers are negative. Past medical history: 1. Past paroxysmal, now persistent atrial fibrillation with rate controlled anticoagulation. 2. History of sotalol induced ventricular arrhythmias. 3. Past diagnostic cardiac catheterization x2, last July 2010 without obstructive coronary disease. 4. Moderate mitral insufficiency. 5. Diastolic heart function with past volume overload. 6. Chronic gastroesophageal reflux. Allergies Allergy/AdvReac Type Severity Reaction Status Date / Time epinephrine AdvReac Severe SEVERE Verified 02/04/17 07:09 TACHYCARDIA Beta-Blockers AdvReac Intermediate CHF Verified 02/04/17 07:09 (Beta-Adrenergic Bloc sotalol AdvReac Intermediate CHF Verified 02/04/17 07:09 Home Medications Home Medications Medication Instructions Recorded Confirmed Type albuterol sulfate 2 puff INHALATION Q6H PRN 05/21/18 05/21/18 History calcium carbonate-vitamin D3 1 tab PO TID 05/21/18 05/21/18 History [Calcium 500 + D (D3)] escitalopram oxalate 10 mg PO DAILY 05/21/18 05/21/18 History fluticasone [Flovent HFA] 2 inhaler INHALATION BID 05/21/18 05/21/18 History furosemide [Lasix] 40 mg PO DAILY 05/21/18 05/21/18 History levothyroxine 125 mcg PO DAILY 05/21/18 05/21/18 History lisinopril 10 mg PO DAILY 05/21/18 05/21/18 History lorazepam 0.5 mg PO TID PRN 05/21/18 05/21/18 History metoprolol succinate 50 mg PO BID 05/21/18 05/21/18 History montelukast 10 mg PO DAILY 05/21/18 05/21/18 History multivitamin 1 tab PO DAILY 05/21/18 05/21/18 History nitroglycerin [Nitrostat] 0.4 mg SUBLINGUAL UD PRN 05/21/18 05/21/18 History omeprazole 20 mg PO DAILY 05/21/18 05/21/18 History potassium chloride 10 meq PO DAILY 05/21/18 05/21/18 History simvastatin 20 mg PO HS 05/21/18 05/21/18 History spironolactone [Aldactone] 25 mg PO DAILY 05/21/18 05/21/18 History warfarin 2 mg PO MOWEFR 05/21/18 05/21/18 History warfarin 4 mg PO SUTUTHSA 05/21/18 05/21/18 History Patient History Medical History Hypertension (Chronic) Atrial fibrillation (Chronic) Warfarin anticoagulation (Chronic) Hypothyroidism (Chronic) Mild mitral regurgitation (Chronic) Dyslipidemia (Chronic) Osteoporosis (Chronic) Essential tremor (Chronic) HTN (hypertension) (Chronic) Cirrhosis of liver (Chronic) "noted on CT abdomen [facility] 10/31/15" CKD (chronic kidney disease), stage III (Chronic) Dyspnea CHF (congestive heart failure) (Acute) Echo 02/2018 The examination is adequate to evaluate the referral indication. The left ventricular cavity size is normal. The qualitative LV ejection fraction is 55-59% (normal). The right ventricular systolic function is normal as assessed by tricuspid annular plane systolic excursion (TAPSE) (normal >1.7 cm). The left atrium is severely enlarged (>48 ml/m^2,). The right atrium is moderately enlarged. There is moderate mitral annular calcification. Moderate mitral regurgitation is present. Mild tricuspid regurgitation is present. Chest pain radiating to arm (Acute) Surgical History History of hysterectomy (Chronic) H/O colonoscopy (Chronic) S/P reduction mammoplasty (Chronic) H/O bladder repair surgery (Chronic) Family History Father , age 54 Heart attack Mother , age 75 Heart attack Social History marital status: Current Living Situation: Family Current Living Situation Comment: Lives with son. 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 All other 10 point review of systems are negative. Physical Exam 2 Vital Signs (Past 24 Hours): Last Vital Signs Temp 36.4 C L 05/22/18 07:30 Pulse 100 H 05/22/18 07:30 Resp 20 05/22/18 07:30 BP 147/97 H 05/22/18 08:07 Pulse Ox 100 05/22/18 07:30 Physical Exam: General: no acute distress and stated age Head: normocephalic, no masses, lesions, tenderness or abnormalities Eyes: conjunctiva are pink and non-injected, sclera clear Neck: supple, no adenopathy, no bruits, normal jugular venous pulse, no hepatojugular reflux Chest: normal shape and normal respiratory effort Lungs: Wheezing and rhonchi throughout Cardiac Exam: - irregular rate & rhythm, no murmurs gallops or rubs - normal S1 , normal S2 Pulses: 2(+) throughout Abdomen: abdomen soft, non-tender, no abnormal masses and no hepatosplenomegaly Musculoskeletal: no gait disturbance, no joint inflammation, no deforming arthritis Extremities: no edema and no cyanosis Neuro: grossly normal exam Results & Data Laboratory Results Laboratory Results - last 24 hr 05/21/18 05/21/18 05/21/18 16:51 16:51 16:51 WBC 9.36 RBC 4.69 Hgb 13.5 Hct 41.1 MCV 87.6 MCH 28.8 MCHC 32.8 RDW Std Deviation 43.9 RDW Coeff of [place] 13.7 Plt Count 292 MPV 9.8 Immature Gran % (Auto) 0.4 Neut % (Auto) 92.9 Lymph % (Auto) 4.1 [place] % (Auto) 2.5 Eos % (Auto) 0.0 Baso % (Auto) 0.1 Immature Gran # (Auto) 0.04 H Neut # (Auto) 8.70 H Lymph # (Auto) 0.38 L [place] # (Auto) 0.23 Eos # (Auto) 0.00 Baso # (Auto) 0.01 PT 12.1 H INR 1.2 H APTT 27.6 PTT Ratio 1.1 Sodium 140 Potassium 3.2 L Chloride 105 Carbon Dioxide 25 Anion Gap 11.0 BUN 24 H Creatinine 0.97 Est Cr Clr Drug Dosing 43.1 Est GFR ( Amer) 63.0 Est GFR (Non-Af Amer) 54.4 BUN/Creatinine Ratio 24.9 H Glucose 136 H Calcium 8.9 Magnesium Total Bilirubin 1.0 AST 49 H ALT 37 Alkaline Phosphatase 83 POC Troponin I Total Protein 7.2 Albumin 3.6 Globulin 3.6 Albumin/Globulin Ratio 1.0 Urine Color Urine Appearance Urine pH Ur Specific [place] Urine Protein Urine Glucose (UA) Urine Ketones Urine Blood Urine Nitrite Urine Bilirubin Urine Urobilinogen Ur Leukocyte Esterase Urine WBC (Auto) Urine RBC (Auto) U Hyaline Cast (Auto) U Epithel Cells (Auto) Urine Bacteria (Auto) 05/21/18 05/21/18 05/21/18 16:51 17:03 21:51 WBC RBC Hgb Hct MCV MCH MCHC RDW Std Deviation RDW Coeff of [place] Plt Count MPV Immature Gran % (Auto) Neut % (Auto) Lymph % (Auto) [place] % (Auto) Eos % (Auto) Baso % (Auto) Immature Gran # (Auto) Neut # (Auto) Lymph # (Auto) [place] # (Auto) Eos # (Auto) Baso # (Auto) PT INR APTT PTT Ratio Sodium Potassium Chloride Carbon Dioxide Anion Gap BUN Creatinine Est Cr Clr Drug Dosing Est GFR ( Amer) Est GFR (Non-Af Amer) BUN/Creatinine Ratio Glucose Calcium Magnesium 2.0 Total Bilirubin AST ALT Alkaline Phosphatase POC Troponin I < 0.03 Total Protein Albumin Globulin Albumin/Globulin Ratio Urine Color Yellow Urine Appearance Cloudy H Urine pH 5.0 Ur Specific [place] 1.010 Urine Protein Negative Urine Glucose (UA) Negative Urine Ketones Negative Urine Blood Negative Urine Nitrite Negative Urine Bilirubin Negative Urine Urobilinogen Negative Ur Leukocyte Esterase Negative Urine WBC (Auto) 0 Urine RBC (Auto) 0-4 U Hyaline Cast (Auto) 1-5 U Epithel Cells (Auto) 5-10 H Urine Bacteria (Auto) Negative 05/22/18 05/22/18 05/22/18 06:29 06:29 06:29 WBC 7.07 RBC 4.62 Hgb 13.4 Hct 41.1 MCV 89.0 MCH 29.0 MCHC 32.6 RDW Std Deviation 44.6 RDW Coeff of [place] 13.8 Plt Count 272 MPV 10.1 Immature Gran % (Auto) 0.4 Neut % (Auto) 88.2 Lymph % (Auto) 8.6 [place] % (Auto) 2.7 Eos % (Auto) 0.0 Baso % (Auto) 0.1 Immature Gran # (Auto) 0.03 H Neut # (Auto) 6.23 Lymph # (Auto) 0.61 L [place] # (Auto) 0.19 Eos # (Auto) 0.00 Baso # (Auto) 0.01 PT 11.6 INR 1.2 H APTT PTT Ratio Sodium 141 Potassium 3.7 D Chloride 107 Carbon Dioxide 29 Anion Gap 5.0 BUN 26 H Creatinine 0.95 Est Cr Clr Drug Dosing 46.1 Est GFR ( Amer) 64.6 Est GFR (Non-Af Amer) 55.8 BUN/Creatinine Ratio 27.6 H Glucose 146 H Calcium 8.9 Magnesium 2.1 Total Bilirubin AST ALT Alkaline Phosphatase POC Troponin I Total Protein Albumin Globulin Albumin/Globulin Ratio Urine Color Urine Appearance Urine pH Ur Specific [place] Urine Protein Urine Glucose (UA) Urine Ketones Urine Blood Urine Nitrite Urine Bilirubin Urine Urobilinogen Ur Leukocyte Esterase Urine WBC (Auto) Urine RBC (Auto) U Hyaline Cast (Auto) U Epithel Cells (Auto) Urine Bacteria (Auto) Medications Administered Current Inpatient Medications Acetaminophen (Tylenol) 650 mg PO Q4H PRN PRN Reason: Pain or Fever Stop: 06/20/18 20:27 Al Hydrox/Mg Hydrox/Simethicone (Maalox) 15 ml PO Q4H PRN PRN Reason: Dyspepsia Stop: 06/20/18 20:27 Enoxaparin Sodium (Lovenox) 80 mg 1 mg/kg (80 mg) SC Q12 [facility] Stop: 06/20/18 20:59 Last Admin: 05/22/18 08:03 Dose: 80 mg Escitalopram Oxalate (Lexapro) 10 mg PO DAILY [facility] Stop: 06/21/18 08:59 Last Admin: 05/22/18 08:03 Dose: 10 mg Fluticasone Propionate (Flovent Hfa 110mch) 2 puffs INH BID [facility] Stop: 06/20/18 20:59 Last Admin: 05/22/18 08:04 Dose: 2 puffs Furosemide (Lasix) 40 mg PO DAILY [facility] Stop: 06/21/18 08:59 Last Admin: 05/22/18 08:02 Dose: 40 mg Guaifenesin/Dextromethorphan (Robitussin Cough-Chest Dm) 5 ml PO Q6H PRN PRN Reason: Cough Stop: 06/20/18 20:27 Last Admin: 05/22/18 08:04 Dose: 5 ml Methylprednisolone 40 mg/ (Syringe) 0.64 mls @ 1.5 mls/min IV Q6H [facility] Stop: 06/21/18 00:00 Last Admin: 05/22/18 06:04 Dose: 1.5 mls/min Levalbuterol HCl (Xopenex 0.63 Mg/3 Ml Neb) 0.63 mg NEB Q6R [facility] Stop: 06/20/18 20:27 Last Admin: 05/22/18 07:07 Dose: 0.63 mg Levothyroxine Sodium (Synthroid) 125 mcg PO DAILYBB [facility] Stop: 06/21/18 06:29 Last Admin: 05/22/18 06:04 Dose: 125 mcg Lisinopril (Zestril) 10 mg PO DAILY [facility] Stop: 06/21/18 08:59 Last Admin: 05/22/18 08:03 Dose: 10 mg Lorazepam (Ativan) 0.5 mg PO TID PRN PRN Reason: Anxiety Stop: 06/20/18 20:27 Magnesium Hydroxide (Milk Of Magnesia) 30 ml PO Q12H PRN PRN Reason: Constipation Stop: 06/20/18 20:27 Metoprolol Succinate (Toprol Xl) 50 mg PO BID [facility] Stop: 06/20/18 20:59 Last Admin: 05/22/18 08:01 Dose: 50 mg Montelukast Sodium (Singulair) 10 mg PO DAILY [facility] Stop: 06/21/18 08:59 Last Admin: 05/22/18 08:02 Dose: 10 mg Multivitamins (Multivitamin Tab) 1 tab PO DAILY [facility] Stop: 06/21/18 08:59 Last Admin: 05/22/18 08:03 Dose: 1 tab Multivitamins/Minerals (Caltrate Plus) 1 tab PO TID [facility] Stop: 06/20/18 20:59 Last Admin: 05/22/18 08:01 Dose: 1 tab Nitroglycerin (Nitrostat) 0.4 mg SL UD PRN PRN Reason: Chest Pain Stop: 06/20/18 20:27 Pantoprazole Sodium (Protonix) 40 mg PO DAILY [facility] Stop: 06/21/18 08:59 Last Admin: 05/22/18 08:02 Dose: 40 mg Polyethylene Glycol (Miralax Powder Packet) 17 gm PO DAILY PRN PRN Reason: Constipation Stop: 06/20/18 20:27 Potassium Chloride (Klor-Con M10) 10 meq PO DAILY [facility] Stop: 06/21/18 08:59 Last Admin: 05/22/18 08:03 Dose: 10 meq Simvastatin (Zocor) 20 mg PO HS [facility] Stop: 06/20/18 20:59 Last Admin: 05/21/18 21:59 Dose: 20 mg Spironolactone (Aldactone) 25 mg PO DAILY [facility] Stop: 06/21/18 08:59 Last Admin: 05/22/18 08:02 Dose: 25 mg Warfarin Sodium (Coumadin) 2 mg PO [id number]@1600 [facility]; Protocol Stop: 06/21/18 15:59 Warfarin Sodium (Coumadin) 4 mg PO SuTuThSa@1600 [facility]; Protocol Stop: 06/20/18 20:27 Last Admin: 05/21/18 22:00 Dose: 4 mg _ (1) Acute asthma exacerbation Asthma severity: moderate Asthma persistence: persistent Qualified Code(s): J45.41 - Moderate persistent asthma with (acute) exacerbation (2) Atrial fibrillation Atrial fibrillation type: chronic Qualified Code(s): I48.2 - Chronic atrial fibrillation
[2018-05-22] MEDS ORDERED: LISINOPRIL 10 MG TAB PO SCH (09:00)
--- NOTE | 2018-05-22 09:54 | Hospitalist Progress Note ---
Date of Service May 22, 2018 Assessment & Plan (1) Acute asthma exacerbation: Improved from yesterday -IV methylprednisolone 40 mg IV every 6 hours -Xopenex every 6 hours -Aggressive pulmonary toilet with incentive spirometry, mucolytics, flutter valve -continue advair as prescribed -Oxygen as needed (2) RSV (respiratory syncytial virus infection): -droplet precautions -plan as above with aggressive pulmonary toilet (3) Atrial fibrillation: -continue metoprolol succinate as prescribed, rate 79 currently -INR subtherapeutic secondary to patient not taking warfarin due to not feeling well -Continue full dose Lovenox at 1mg/kg SQ Q12 until INR >2.0 -continue warfarin -INR daily (4) CHF (congestive heart failure): -CXR consistent with pulmonary vascular congestion -Lasix 40 mg IV every 12 -aldactone, lisinopril, metoprolol -daily weights -I and O -heart healthy diet (5) Hypokalemia: -Potassium normal currently -continue daily KCL 10meq -monitor bmp and replete as necessary (6) Hypothyroidism: -continue levothyroxine (7) HTN (hypertension): -blood pressure still elevated -Lasix 40 mg IV every 12 -continue oral outpatient meds including lisinopril, aldactone, metoprolol, lasix -monitor bp and creatinine (8) Dyslipidemia: -continue statin (9) CKD (chronic kidney disease), stage III: -Bun/Cr stable -monitor daily labs (10) DVT prophylaxis: -Lovenox SQ 1mg/kg q12 hr until INR therapeutic > 2.0 -continue warfarin 4mg MWF, 2mg all other days -INR daily. Disposition: to be determined Follow up: PCP Dr. El upon discharge DC when lungs are more clear, today she is improved but still not clear Subjective Breathing much better than yesterday. ROS-No Headache, No Visual Changes, No Fever, No Chills, No Neck Pain or Stiffness, No Chest Pain, No Palpitations, positive SOB, positive MULLER, positive cough, positive sputum, positive wheezing all improved from yesterday, No Abdominal Pain, No Diarrhea, No Hematemesis, No Hemoptysis, No Unexpected Weight Loss, No Flank pain, No Melena, No Hematochezia, No Frequency, No Urgency , No Burning, No Hematuria, No Rashes, No Diaphoresis. Appetite is Normal Physical Exam Gen-AAO x 3, NAD, Afebrile, obese Head-NCAT, EOMI, PERRLA, Anicteric Sclera, No Posterior Pharyngeal Erythema Neck-Supple, No JVD, No Thyromegaly, No Masses, No LAD, No Bruits Lungs-positive wheezing, but much improved, No Crepitus Chest-No S4, +S1, +S2, No S3, No Murmurs, No Rubs, No Gallops, No Ectopy Abdomen-Soft, Bowel Sounds Present, Non Tender, Non Distended, No Hepatomegaly, No Splenomegaly, No Palpable Masses, No Rebound, No Rigidity, No Guarding Musculoskeletal-Full Range of Motion Bilaterally, No CVAT Extremities-No Cyanosis, No Clubbing, No Edema Nuero-Cranial Nerves II-XII grossly intact, Motor WNL, DTRs WNL, Strength WNL, No Focal Psych-Normal Mood Physical Exam 2 Vital Signs (Past 24 Hours): Last Vital Signs Temp 36.4 C L 05/22/18 07:30 Pulse 79 05/22/18 08:00 Resp 20 05/22/18 07:30 BP 147/97 H 05/22/18 08:07 Pulse Ox 100 05/22/18 07:30 Results & Data Laboratory Results Current Diagnoses Respiratory syncytial virus as the cause of diseases classified elsewhere (05/21) Hypothyroidism, unspecified (05/21/18) Hyperlipidemia, unspecified (05/21/18) Hypokalemia (05/21/18) Essential (primary) hypertension (05/21/18) Paroxysmal atrial fibrillation (05/21/18) Chronic atrial fibrillation (05/21/18) Unspecified diastolic (congestive) heart failure (05/21/18) Moderate persistent asthma with (acute) exacerbation (05/21/18) Chronic kidney disease, stage 3 (moderate) (05/21/18) Allergies epinephrine Adverse Reaction (Severe, Verified 02/04/17 07:09) SEVERE TACHYCARDIA Beta-Blockers (Beta-Adrenergic Bloc Adverse Reaction (Intermediate, Verified 07:09) CHF sotalol Adverse Reaction (Intermediate, Verified 02/04/17 07:09) CHF Height/Weight/Isolation Height 5 ft 1 in Weight 88.3 kg Isolation Type Droplet Precautions Chemistry 05/21/18 05/22/18 16:51 06:29 Sodium 140 141 Potassium 3.2 L 3.7 D Chloride 105 107 Carbon Dioxide 25 29 Anion Gap 11.0 5.0 BUN 24 H 26 H Creatinine 0.97 0.95 Glucose 136 H 146 H Urinalysis 05/21/18 21:51 Urine Color Yellow Urine Appearance Cloudy H Urine pH 5.0 Ur Specific [place] 1.010 Urine Protein Negative Urine Glucose (UA) Negative Urine Ketones Negative Urine Blood Negative Urine Nitrite Negative Urine Bilirubin Negative Diagnostic Findings CXR 05/21 IMPRESSION: 1. Cardiomegaly with evidence of mild congestive failure. 2. No large pleural effusion is identified. _ (1) Acute asthma exacerbation Asthma severity: moderate Asthma persistence: persistent Qualified Code(s): J45.41 - Moderate persistent asthma with (acute) exacerbation (2) Atrial fibrillation Atrial fibrillation type: chronic Qualified Code(s): I48.2 - Chronic atrial fibrillation (3) CHF (congestive heart failure) Heart failure type: diastolic Heart failure chronicity: unspecified Qualified Code(s): I50.30 - Unspecified diastolic (congestive) heart failure (4) Hypothyroidism Hypothyroidism type: unspecified Qualified Code(s): E03.9 - Hypothyroidism, unspecified (5) HTN (hypertension) Hypertension type: essential hypertension Qualified Code(s): I10 - Essential (primary) hypertension
[2018-05-22] MEDS: WARFARIN SOD 2 MG TAB PO SCH (15:43)
[2018-05-22] MEDS: SIMVASTATIN 20 MG TAB PO SCH (20:00)
[2018-05-23] MEDS: methylPREDNISolone 40 MG in SYRINGE 0 ML IV SCH ×4 (00:33→17:49)
[2018-05-23] MEDS: LEVALBUTEROL HCL 0.63 MG/3 ML NEB NEB SCH ×4 (01:33→18:57)
[2018-05-23] MEDS: LEVOTHYROXINE SODIUM 125 MCG TABLET PO SCH (05:59)
[2018-05-23 06:17] LABS: INR 1.7 (0.9-1.1); Prothrombin Time 16.4 Seconds (9.0-12.0)
[2018-05-23 06:41] LABS: BUN Creatinine Ratio 33.5 (10-20); Calcium 8.9 mg/dl (8.5-10.1); Creatinine Clr Calc Pharmacy 41.5 ml/min; Est GFR (African American) 56.6; Est GFR (Non-African American) 48.9
[2018-05-23 08:04] LABS: Hematocrit (blood only) 39.1 % (37-47); Hemoglobin 12.5 g/dL (12.0-16.0); Mean Corpuscular Volume 90.3 fL (80-100); Mean Platelet Volume 10.8 fL (7.4-10.4); Platelet Count 305 K/uL (130-400); RDW Coefficient of Variation 13.6 % (11.5-14.5); RDW Standard Deviation 44.8 fL (36.4-46.3); Red Blood Count 4.33 M/uL (4.2-5.4); White Blood Count 10.45 K/uL (4.8-10.8)
[2018-05-23] MEDS: METOPROLOL SUCC 50MG EXT REL TAB PO SCH ×2 (09:31→16:42)
[2018-05-23] MEDS: ENOXAPARIN 80 MG/0.8 ML SYR SC SCH ×2 (09:32→21:03)
[2018-05-23] MEDS: PANTOprazole 40 MG TAB PO SCH (09:32)
[2018-05-23] MEDS: MONTELUKAST SODIUM 10 MG TABLET PO SCH (09:32)
[2018-05-23] MEDS: CALCIUM 600MG + VIT D 400 IU TAB PO SCH ×3 (09:32→21:03)
[2018-05-23] MEDS: LISINOPRIL 10 MG TAB PO SCH ×2 (09:32→16:41)
[2018-05-23] MEDS: ESCITALOPRAM OXALATE 10 MG TAB PO SCH (09:32)
[2018-05-23] MEDS: SPIRONOLACTONE 25 MG TAB PO SCH (09:32)
[2018-05-23] MEDS: POTASSIUM CHLORIDE 10 MEQ TABCR PO SCH (09:32)
[2018-05-23] MEDS: FUROSEMIDE 40 MG TAB PO SCH (09:33)
[2018-05-23] MEDS: MULTIVITAMIN TAB PO SCH (09:33)
[2018-05-23] MEDS: FLUTICASONE HFA 110MCG INHALER INH SCH ×2 (09:33→21:03)
--- NOTE | 2018-05-23 10:06 | Cardiology Progress Note ---
Date of Service May 23, 2018 Assessment & Plan (1) RSV (respiratory syncytial virus infection): RSV is complicated with acute exacerbation of asthma along with diastolic heart failure in this elderly patient. The patient is slowly improving and I would anticipate she could be discharged soon. (2) Acute asthma exacerbation: Continue steroids and bronchodilators. (3) Atrial fibrillation: Atrial fibrillation is most likely chronic at this point. 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 I would recommend rate control and anticoagulation. (4) Diastolic heart failure: The patient is currently on home diuretics. Subjective The patient had an uneventful night. She has felt improvement in her shortness of breath and is slowly getting better. Physical Exam 2 Vital Signs (Past 24 Hours): Last Vital Signs Temp 36.6 C 05/23/18 07:13 Pulse 96 H 05/23/18 07:13 Resp 22 05/23/18 07:13 BP 150/81 H 05/23/18 08:09 Pulse Ox 96 05/23/18 07:13 Physical Exam: General: no acute distress and stated age Head: normocephalic, no masses, lesions, tenderness or abnormalities Eyes: conjunctiva are pink and non-injected, sclera clear Neck: supple, no adenopathy, no bruits, normal jugular venous pulse, no hepatojugular reflux Chest: normal shape and normal respiratory effort Lungs: Wheezing and rhonchi throughout the lung manzanares Cardiac Exam: - regular rate & rhythm, no murmurs gallops or rubs - normal S1, normal S2 Pulses: 2(+) throughout Abdomen: abdomen soft, non-tender, no abnormal masses and no hepatosplenomegaly Musculoskeletal: no gait disturbance, no joint inflammation, no deforming arthritis Extremities: no edema and no cyanosis Neuro: grossly normal exam Results & Data Laboratory Results Laboratory Results - last 24 hr 05/23/18 05/23/18 05/23/18 05:22 05:22 05:22 WBC 10.45 RBC 4.33 Hgb 12.5 Hct 39.1 MCV 90.3 MCH 28.9 MCHC 32.0 RDW Std Deviation 44.8 RDW Coeff of [place] 13.6 Plt Count 305 MPV 10.8 H PT 16.4 H INR 1.7 H Sodium 141 Potassium 4.0 Chloride 105 Carbon Dioxide 31 Anion Gap 5.0 BUN 36 H Creatinine 1.06 Est Cr Clr Drug Dosing 41.5 Est GFR ( Amer) 56.6 Est GFR (Non-Af Amer) 48.9 BUN/Creatinine Ratio 33.5 H Glucose 134 H Calcium 8.9 Medications Administered Current Inpatient Medications Acetaminophen (Tylenol) 650 mg PO Q4H PRN PRN Reason: Pain or Fever Stop: 06/20/18 20:27 Al Hydrox/Mg Hydrox/Simethicone (Maalox) 15 ml PO Q4H PRN PRN Reason: Dyspepsia Stop: 06/20/18 20:27 Enoxaparin Sodium (Lovenox) 80 mg 1 mg/kg (80 mg) SC Q12 [facility] Stop: 06/20/18 20:59 Last Admin: 05/23/18 09:32 Dose: 80 mg Escitalopram Oxalate (Lexapro) 10 mg PO DAILY [facility] Stop: 06/21/18 08:59 Last Admin: 05/23/18 09:32 Dose: 10 mg Fluticasone Propionate (Flovent Hfa 110mch) 2 puffs INH BID [facility] Stop: 06/20/18 20:59 Last Admin: 05/23/18 09:33 Dose: 2 puffs Furosemide (Lasix) 40 mg PO DAILY [facility] Stop: 06/21/18 08:59 Last Admin: 05/23/18 09:33 Dose: 40 mg Guaifenesin/Dextromethorphan (Robitussin Cough-Chest Dm) 5 ml PO Q6H PRN PRN Reason: Cough Stop: 06/20/18 20:27 Last Admin: 05/22/18 08:04 Dose: 5 ml Methylprednisolone 40 mg/ (Syringe) 0.64 mls @ 1.5 mls/min IV Q6H [facility] Stop: 06/21/18 00:00 Last Admin: 05/23/18 06:00 Dose: 1.5 mls/min Levalbuterol HCl (Xopenex 0.63 Mg/3 Ml Neb) 0.63 mg NEB Q6R [facility] Stop: 06/20/18 20:27 Last Admin: 05/23/18 07:04 Dose: 0.63 mg Levothyroxine Sodium (Synthroid) 125 mcg PO DAILYBB [facility] Stop: 06/21/18 06:29 Last Admin: 05/23/18 05:59 Dose: 125 mcg Lisinopril (Zestril) 10 mg PO BID [facility] Stop: 06/22/18 08:59 Last Admin: 05/23/18 09:32 Dose: 10 mg Lorazepam (Ativan) 0.5 mg PO TID PRN PRN Reason: Anxiety Stop: 06/20/18 20:27 Magnesium Hydroxide (Milk Of Magnesia) 30 ml PO Q12H PRN PRN Reason: Constipation Stop: 06/20/18 20:27 Metoprolol Succinate (Toprol Xl) 100 mg PO BID [facility] Stop: 06/22/18 08:59 Last Admin: 05/23/18 09:31 Dose: 100 mg Montelukast Sodium (Singulair) 10 mg PO DAILY [facility] Stop: 06/21/18 08:59 Last Admin: 05/23/18 09:32 Dose: 10 mg Multivitamins (Multivitamin Tab) 1 tab PO DAILY [facility] Stop: 06/21/18 08:59 Last Admin: 05/23/18 09:33 Dose: 1 tab Multivitamins/Minerals (Caltrate Plus) 1 tab PO TID [facility] Stop: 06/20/18 20:59 Last Admin: 05/23/18 09:32 Dose: 1 tab Nitroglycerin (Nitrostat) 0.4 mg SL UD PRN PRN Reason: Chest Pain Stop: 06/20/18 20:27 Pantoprazole Sodium (Protonix) 40 mg PO DAILY [facility] Stop: 06/21/18 08:59 Last Admin: 05/23/18 09:32 Dose: 40 mg Polyethylene Glycol (Miralax Powder Packet) 17 gm PO DAILY PRN PRN Reason: Constipation Stop: 06/20/18 20:27 Potassium Chloride (Klor-Con M10) 10 meq PO DAILY [facility] Stop: 06/21/18 08:59 Last Admin: 05/23/18 09:32 Dose: 10 meq Simvastatin (Zocor) 20 mg PO HS [facility] Stop: 06/20/18 20:59 Last Admin: 05/22/18 20:00 Dose: 20 mg Spironolactone (Aldactone) 25 mg PO DAILY [facility] Stop: 06/21/18 08:59 Last Admin: 05/23/18 09:32 Dose: 25 mg Warfarin Sodium (Coumadin) 2 mg PO MoWeFr@1600 [facility]; Protocol Stop: 06/21/18 15:59 Last Admin: 05/22/18 15:43 Dose: 2 mg Warfarin Sodium (Coumadin) 4 mg PO SuTuThSa@1600 [facility]; Protocol Stop: 06/20/18 20:27 Last Admin: 05/21/18 22:00 Dose: 4 mg _ (1) Acute asthma exacerbation Asthma severity: moderate Asthma persistence: persistent Qualified Code(s): J45.41 - Moderate persistent asthma with (acute) exacerbation (2) Atrial fibrillation Atrial fibrillation type: chronic Qualified Code(s): I48.2 - Chronic atrial fibrillation
--- NOTE | 2018-05-23 11:08 | Hospitalist Progress Note ---
Date of Service May 23, 2018 Assessment & Plan (1) Acute asthma exacerbation: Improved from yesterday -IV methylprednisolone 40 mg IV every 6 hours -Xopenex every 6 hours -Aggressive pulmonary toilet with incentive spirometry, mucolytics, flutter valve -continue advair as prescribed -Oxygen as needed (2) RSV (respiratory syncytial virus infection): -droplet precautions -plan as above with aggressive pulmonary toilet (3) Atrial fibrillation: -continue metoprolol succinate as prescribed, rate 79 currently -INR subtherapeutic secondary to patient not taking warfarin due to not feeling well -Continue full dose Lovenox at 1mg/kg SQ Q12 until INR >2.0 -continue warfarin -INR daily (4) CHF (congestive heart failure): -CXR consistent with pulmonary vascular congestion -Lasix 40 mg IV every 12 -aldactone, lisinopril, metoprolol -daily weights -I and O -heart healthy diet (5) Hypokalemia: -Potassium normal currently -continue daily KCL 10meq -monitor bmp and replete as necessary (6) Hypothyroidism: -continue levothyroxine (7) HTN (hypertension): -blood pressure still elevated, lisinopril increased to every 12, metoprolol dose doubled -Lasix 40 mg IV every 12 -continue oral outpatient meds including lisinopril, aldactone, metoprolol, lasix -monitor bp and creatinine (8) Dyslipidemia: -continue statin (9) CKD (chronic kidney disease), stage III: -Bun/Cr stable -monitor daily labs (10) DVT prophylaxis: -Lovenox SQ 1mg/kg q12 hr until INR therapeutic > 2.0, INR was 1.7 today -continue warfarin 4mg MWF, 2mg all other days -INR daily. Disposition: to be determined Follow up: PCP Dr. El upon discharge DC when lungs are more clear, today she is improved but still not clear Subjective Breathing a little better than yesterday. Still very wheezy ROS-No Headache, No Visual Changes, No Fever, No Chills, No Neck Pain or Stiffness, No Chest Pain, No Palpitations, positive SOB, positive MULLER, positive cough, positive sputum, positive wheezing all improved from yesterday, No Abdominal Pain, No Diarrhea, No Hematemesis, No Hemoptysis, No Unexpected Weight Loss, No Flank pain, No Melena, No Hematochezia, No Frequency, No Urgency , No Burning, No Hematuria, No Rashes, No Diaphoresis. Appetite is Normal Physical Exam Gen-AAO x 3, NAD, Afebrile, obese Head-NCAT, EOMI, PERRLA, Anicteric Sclera, No Posterior Pharyngeal Erythema Neck-Supple, No JVD, No Thyromegaly, No Masses, No LAD, No Bruits Lungs-positive wheezing, but much improved since admission, No Crepitus, lungs still tight Chest-No S4, +S1, +S2, No S3, No Murmurs, No Rubs, No Gallops, No Ectopy Abdomen-Soft, Bowel Sounds Present, Non Tender, Non Distended, No Hepatomegaly, No Splenomegaly, No Palpable Masses, No Rebound, No Rigidity, No Guarding Musculoskeletal-Full Range of Motion Bilaterally, No CVAT Extremities-No Cyanosis, No Clubbing, No Edema Nuero-Cranial Nerves II-XII grossly intact, Motor WNL, DTRs WNL, Strength WNL, No Focal Psych-Normal Mood Physical Exam 2 Vital Signs (Past 24 Hours): Last Vital Signs Temp 36.6 C 05/23/18 07:13 Pulse 96 H 05/23/18 07:13 Resp 22 05/23/18 07:13 BP 150/81 H 05/23/18 08:09 Pulse Ox 96 05/23/18 07:13 _ (1) Acute asthma exacerbation Asthma severity: moderate Asthma persistence: persistent Qualified Code(s): J45.41 - Moderate persistent asthma with (acute) exacerbation (2) Atrial fibrillation Atrial fibrillation type: chronic Qualified Code(s): I48.2 - Chronic atrial fibrillation (3) CHF (congestive heart failure) Heart failure type: diastolic Heart failure chronicity: unspecified Qualified Code(s): I50.30 - Unspecified diastolic (congestive) heart failure (4) Hypothyroidism Hypothyroidism type: unspecified Qualified Code(s): E03.9 - Hypothyroidism, unspecified (5) HTN (hypertension) Hypertension type: essential hypertension Qualified Code(s): I10 - Essential (primary) hypertension
[2018-05-23] MEDS ORDERED: COUGH DROP (SUGAR FREE) LOZ 24 LOZ/1 BOX BUCCAL PRN (11:40)
[2018-05-23] MEDS: WARFARIN SOD 4 MG TAB PO SCH (15:49)
[2018-05-23] MEDS: SIMVASTATIN 20 MG TAB PO SCH (21:03)
[2018-05-24] MEDS: LEVALBUTEROL HCL 0.63 MG/3 ML NEB NEB SCH ×4 (01:32→19:41)
[2018-05-24] MEDS: LEVOTHYROXINE SODIUM 125 MCG TABLET PO SCH (06:11)
[2018-05-24] MEDS: methylPREDNISolone 40 MG in SYRINGE 0 ML IV SCH ×5 (06:12→23:37)
[2018-05-24 07:08] LABS: INR 2.6 (0.9-1.1); Prothrombin Time 24.8 Seconds (9.0-12.0)
[2018-05-24] MEDS: PANTOprazole 40 MG TAB PO SCH (08:21)
[2018-05-24] MEDS: MULTIVITAMIN TAB PO SCH (08:21)
[2018-05-24] MEDS: ESCITALOPRAM OXALATE 10 MG TAB PO SCH (08:21)
[2018-05-24] MEDS: FLUTICASONE HFA 110MCG INHALER INH SCH ×2 (08:21→21:26)
[2018-05-24] MEDS: FUROSEMIDE 40 MG TAB PO SCH (08:21)
[2018-05-24] MEDS: METOPROLOL SUCC 50MG EXT REL TAB PO SCH ×2 (08:21→21:27)
[2018-05-24] MEDS: CALCIUM 600MG + VIT D 400 IU TAB PO SCH ×3 (08:21→21:26)
[2018-05-24] MEDS: LISINOPRIL 10 MG TAB PO SCH (08:22)
[2018-05-24] MEDS: POTASSIUM CHLORIDE 10 MEQ TABCR PO SCH (08:22)
[2018-05-24] MEDS: SPIRONOLACTONE 25 MG TAB PO SCH (08:22)
[2018-05-24] MEDS: MONTELUKAST SODIUM 10 MG TABLET PO SCH (08:22)
[2018-05-24] MEDS: ENOXAPARIN 80 MG/0.8 ML SYR SC SCH (08:23)
--- NOTE | 2018-05-24 09:34 | Hospitalist Progress Note ---
Date of Service May 24, 2018 Assessment & Plan (1) Acute asthma exacerbation: Improved from yesterday -IV methylprednisolone 40 mg IV every 6 hours, taper to every 8 -Xopenex every 6 hours -Aggressive pulmonary toilet with incentive spirometry, mucolytics, flutter valve -continue advair as prescribed -Oxygen as needed (2) RSV (respiratory syncytial virus infection): -droplet precautions -plan as above with aggressive pulmonary toilet Send sputum for culture (3) Atrial fibrillation: -continue metoprolol succinate was changed to 100 twice daily yesterday -INR subtherapeutic secondary to patient not taking warfarin due to not feeling well -Stop Lovenox INR 2.6 -INR daily (4) CHF (congestive heart failure): -CXR consistent with pulmonary vascular congestion -Lasix 40 mg IV every 12 -aldactone, lisinopril, metoprolol -daily weights -I and O -heart healthy diet (5) Hypokalemia: -Potassium normal currently -continue daily KCL 10meq -monitor bmp and replete as necessary (6) Hypothyroidism: -continue levothyroxine (7) HTN (hypertension): -blood pressure still elevated, lisinopril increased to every 12, metoprolol dose doubled yesterday, blood pressure came down 10 points systolic -Lasix 40 mg IV every 12 -continue oral outpatient meds including lisinopril, aldactone, metoprolol, lasix -monitor bp and creatinine (8) Dyslipidemia: -continue statin (9) CKD (chronic kidney disease), stage III: -Bun/Cr stable -monitor daily labs (10) DVT prophylaxis: -Lovenox SQ 1mg/kg q12 hr until INR therapeutic > 2.0, INR was 1.7 today -continue warfarin 4mg MWF, 2mg all other days -INR daily. Disposition: to be determined Follow up: PCP Dr. El upon discharge DC when lungs are more clear, today she is improved but still not clear Subjective Breathing is much improved from yesterday, patient notes that her sputum has changed from clear to yellow. ROS-No Headache, No Visual Changes, No Fever, No Chills, No Neck Pain or Stiffness, No Chest Pain, No Palpitations, less SOB, less MULLER, less, yellow sputum, positive wheezing, improved from yesterday, No Abdominal Pain, No Diarrhea, No Hematemesis, No Hemoptysis, No Unexpected Weight Loss, No Flank pain, No Melena, No Hematochezia, No Frequency, No Urgency, No Burning, No Hematuria, No Rashes, No Diaphoresis. Appetite is Normal, positive dependent edema Physical Exam Gen-AAO x 3, NAD, Afebrile, obese Head-NCAT, EOMI, PERRLA, Anicteric Sclera, No Posterior Pharyngeal Erythema Neck-Supple, No JVD, No Thyromegaly, No Masses, No LAD, No Bruits Lungs-positive wheezing, but much improved since admission, No Crepitus, lungs still tight Chest-No S4, +S1, +S2, No S3, No Murmurs, No Rubs, No Gallops, No Ectopy Abdomen-Soft, Bowel Sounds Present, Non Tender, Non Distended, No Hepatomegaly, No Splenomegaly, No Palpable Masses, No Rebound, No Rigidity, No Guarding Musculoskeletal-Full Range of Motion Bilaterally, No CVAT Extremities-No Cyanosis, No Clubbing, No Edema Nuero-Cranial Nerves II-XII grossly intact, Motor WNL, DTRs WNL, Strength WNL, No Focal Psych-Normal Mood Physical Exam 2 Vital Signs (Past 24 Hours): Last Vital Signs Temp 36.5 C 05/24/18 07:00 Pulse 95 H 05/24/18 07:12 Resp 22 05/24/18 07:12 BP 164/84 H 05/24/18 07:00 Pulse Ox 94 05/24/18 07:12 Results & Data Laboratory Results Current Diagnoses Respiratory syncytial virus as the cause of diseases classified elsewhere (05/23) Hypothyroidism, unspecified (05/23/18) Hyperlipidemia, unspecified (05/23/18) Hypokalemia (05/23/18) Essential (primary) hypertension (05/23/18) Paroxysmal atrial fibrillation (05/23/18) Chronic atrial fibrillation (05/23/18) Unspecified diastolic (congestive) heart failure (05/23/18) Moderate persistent asthma with (acute) exacerbation (05/23/18) Chronic kidney disease, stage 3 (moderate) (05/23/18) Allergies epinephrine Adverse Reaction (Severe, Verified 02/04/17 07:09) SEVERE TACHYCARDIA Beta-Blockers (Beta-Adrenergic Bloc Adverse Reaction (Intermediate, Verified 07:09) CHF sotalol Adverse Reaction (Intermediate, Verified 02/04/17 07:09) CHF Height/Weight/Isolation Height 5 ft 1 in Weight 88.4 kg Isolation Type Droplet Precautions Chemistry 05/23/18 05:22 Sodium 141 Potassium 4.0 Chloride 105 Carbon Dioxide 31 Anion Gap 5.0 BUN 36 H Creatinine 1.06 Glucose 134 H _ (1) Acute asthma exacerbation Asthma severity: moderate Asthma persistence: persistent Qualified Code(s): J45.41 - Moderate persistent asthma with (acute) exacerbation (2) Atrial fibrillation Atrial fibrillation type: chronic Qualified Code(s): I48.2 - Chronic atrial fibrillation (3) CHF (congestive heart failure) Heart failure type: diastolic Heart failure chronicity: unspecified Qualified Code(s): I50.30 - Unspecified diastolic (congestive) heart failure (4) Hypothyroidism Hypothyroidism type: unspecified Qualified Code(s): E03.9 - Hypothyroidism, unspecified (5) HTN (hypertension) Hypertension type: essential hypertension Qualified Code(s): I10 - Essential (primary) hypertension
--- NOTE | 2018-05-24 10:20 | Cardiology Progress Note ---
Date of Service May 24, 2018 Assessment & Plan (1) RSV (respiratory syncytial virus infection): RSV is complicated with acute exacerbation of asthma along with diastolic heart failure in this elderly patient. The patient is slowly improving and I would anticipate she could be discharged soon. I would increase her lisinopril today for better blood pressure control. She has been switched over to her home dose of Lasix 40 mg p.o. daily. (2) Acute asthma exacerbation: She continues to have wheezing and a productive cough. Continue steroids and bronchodilators. (3) Atrial fibrillation: Atrial fibrillation is most likely chronic at this point. 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 I would recommend rate control and anticoagulation. (4) Diastolic heart failure: The patient is currently on home diuretics. Subjective The patient had an uneventful night. She has felt improvement in her shortness of breath and is slowly getting better. Physical Exam 2 Vital Signs (Past 24 Hours): Last Vital Signs Temp 36.5 C 05/24/18 07:00 Pulse 95 H 05/24/18 07:12 Resp 22 05/24/18 07:12 BP 164/84 H 05/24/18 07:00 Pulse Ox 94 05/24/18 07:12 Physical Exam: General: no acute distress and stated age Head: normocephalic, no masses, lesions, tenderness or abnormalities Eyes: conjunctiva are pink and non-injected, sclera clear Neck: supple, no adenopathy, no bruits, normal jugular venous pulse, no hepatojugular reflux Chest: normal shape and normal respiratory effort Lungs: Wheezing and rhonchi Cardiac Exam: - regular rate & rhythm, no murmurs gallops or rubs - normal S1, normal S2 Pulses: 2(+) throughout Abdomen: abdomen soft, non-tender, no abnormal masses and no hepatosplenomegaly Musculoskeletal: no gait disturbance, no joint inflammation, no deforming arthritis Extremities: no edema and no cyanosis Neuro: grossly normal exam Results & Data Laboratory Results Laboratory Results - last 24 hr 05/24/18 06:09 PT 24.8 H INR 2.6 H Medications Administered Current Inpatient Medications Acetaminophen (Tylenol) 650 mg PO Q4H PRN PRN Reason: Pain or Fever Stop: 06/20/18 20:27 Al Hydrox/Mg Hydrox/Simethicone (Maalox) 15 ml PO Q4H PRN PRN Reason: Dyspepsia Stop: 06/20/18 20:27 Escitalopram Oxalate (Lexapro) 10 mg PO DAILY [facility] Stop: 06/21/18 08:59 Last Admin: 05/24/18 08:21 Dose: 10 mg Fluticasone Propionate (Flovent Hfa 110mch) 2 puffs INH BID [facility] Stop: 06/20/18 20:59 Last Admin: 05/24/18 08:21 Dose: 2 puffs Furosemide (Lasix) 40 mg PO DAILY [facility] Stop: 06/21/18 08:59 Last Admin: 05/24/18 08:21 Dose: 40 mg Guaifenesin/Dextromethorphan (Robitussin Cough-Chest Dm) 5 ml PO Q6H PRN PRN Reason: Cough Stop: 06/20/18 20:27 Last Admin: 05/22/18 08:04 Dose: 5 ml Methylprednisolone 40 mg/ (Syringe) 0.64 mls @ 1.5 mls/min IV Q6H [facility] Stop: 06/21/18 00:00 Last Admin: 05/24/18 06:12 Dose: 1.5 mls/min Levalbuterol HCl (Xopenex 0.63 Mg/3 Ml Neb) 0.63 mg NEB Q6R [facility] Stop: 06/20/18 20:27 Last Admin: 05/24/18 07:12 Dose: 0.63 mg Levothyroxine Sodium (Synthroid) 125 mcg PO DAILYBB [facility] Stop: 06/21/18 06:29 Last Admin: 05/24/18 06:11 Dose: 125 mcg Lisinopril (Zestril) 20 mg PO BID [facility] Stop: 06/23/18 20:59 Lorazepam (Ativan) 0.5 mg PO TID PRN PRN Reason: Anxiety Stop: 06/20/18 20:27 Magnesium Hydroxide (Milk Of Magnesia) 30 ml PO Q12H PRN PRN Reason: Constipation Stop: 06/20/18 20:27 Menthol (Nice) 1 raymundo BUCCAL UD PRN PRN Reason: Sore Throat Stop: 06/22/18 11:39 Metoprolol Succinate (Toprol Xl) 100 mg PO BID [facility] Stop: 06/22/18 08:59 Last Admin: 05/24/18 08:21 Dose: 100 mg Montelukast Sodium (Singulair) 10 mg PO DAILY [facility] Stop: 06/21/18 08:59 Last Admin: 05/24/18 08:22 Dose: 10 mg Multivitamins (Multivitamin Tab) 1 tab PO DAILY [facility] Stop: 06/21/18 08:59 Last Admin: 05/24/18 08:21 Dose: 1 tab Multivitamins/Minerals (Caltrate Plus) 1 tab PO TID [facility] Stop: 06/20/18 20:59 Last Admin: 05/24/18 08:21 Dose: 1 tab Nitroglycerin (Nitrostat) 0.4 mg SL UD PRN PRN Reason: Chest Pain Stop: 06/20/18 20:27 Pantoprazole Sodium (Protonix) 40 mg PO DAILY [facility] Stop: 06/21/18 08:59 Last Admin: 05/24/18 08:21 Dose: 40 mg Polyethylene Glycol (Miralax Powder Packet) 17 gm PO DAILY PRN PRN Reason: Constipation Stop: 06/20/18 20:27 Potassium Chloride (Klor-Con M10) 10 meq PO DAILY [facility] Stop: 06/21/18 08:59 Last Admin: 05/24/18 08:22 Dose: 10 meq Simvastatin (Zocor) 20 mg PO HS [facility] Stop: 06/20/18 20:59 Last Admin: 05/23/18 21:03 Dose: 20 mg Spironolactone (Aldactone) 25 mg PO DAILY [facility] Stop: 06/21/18 08:59 Last Admin: 05/24/18 08:22 Dose: 25 mg Warfarin Sodium (Coumadin) 2 mg PO MoWeFr@1600 [facility]; Protocol Stop: 06/21/18 15:59 Last Admin: 05/22/18 15:43 Dose: 2 mg Warfarin Sodium (Coumadin) 4 mg PO SuTuThSa@1600 [facility]; Protocol Stop: 06/20/18 20:27 Last Admin: 05/23/18 15:49 Dose: 4 mg _ (1) Acute asthma exacerbation Asthma severity: moderate Asthma persistence: persistent Qualified Code(s): J45.41 - Moderate persistent asthma with (acute) exacerbation (2) Atrial fibrillation Atrial fibrillation type: chronic Qualified Code(s): I48.2 - Chronic atrial fibrillation
[2018-05-24] MEDS: WARFARIN SOD 2 MG TAB PO SCH (16:40)
[2018-05-24] MEDS: LISINOPRIL 20 MG TAB PO SCH (21:28)
[2018-05-24] MEDS: SIMVASTATIN 20 MG TAB PO SCH (21:28)
[2018-05-25] MEDS: LEVALBUTEROL HCL 0.63 MG/3 ML NEB NEB SCH ×4 (01:46→19:09)
[2018-05-25] MEDS: LEVOTHYROXINE SODIUM 125 MCG TABLET PO SCH (05:57)
[2018-05-25] MEDS: methylPREDNISolone 40 MG in SYRINGE 0 ML IV SCH ×3 (05:57→18:22)
[2018-05-25 06:03] LABS: Hematocrit (blood only) 40.8 % (37-47); Hemoglobin 13.3 g/dL (12.0-16.0); Mean Corpuscular Hgb Conc 32.6 g/dL (32-36); Mean Corpuscular Volume 92.5 fL (80-100); Mean Platelet Volume 10.3 fL (7.4-10.4); Platelet Count 318 K/uL (130-400); RDW Coefficient of Variation 13.9 % (11.5-14.5); RDW Standard Deviation 43.7 fL (36.4-46.3); Red Blood Count 4.41 M/uL (4.2-5.4); White Blood Count 8.87 K/uL (4.8-10.8)
[2018-05-25 06:10] LABS: INR 2.7 (0.9-1.1); Prothrombin Time 26.1 Seconds (9.0-12.0)
[2018-05-25 06:35] LABS: BUN Creatinine Ratio 41.2 (10-20); Calcium 8.6 mg/dl (8.5-10.1); Creatinine Clr Calc Pharmacy 44.1 ml/min; Est GFR (African American) 61.5; Est GFR (Non-African American) 53.1; Potassium 3.7 mmol/L (3.5-5.1)
[2018-05-25] MEDS: METOPROLOL SUCC 50MG EXT REL TAB PO SCH ×2 (07:58→20:41)
[2018-05-25] MEDS: FUROSEMIDE 40 MG TAB PO SCH (07:58)
[2018-05-25] MEDS: MULTIVITAMIN TAB PO SCH (07:58)
[2018-05-25] MEDS: ESCITALOPRAM OXALATE 10 MG TAB PO SCH (07:58)
[2018-05-25] MEDS: CALCIUM 600MG + VIT D 400 IU TAB PO SCH ×3 (07:58→20:43)
[2018-05-25] MEDS: PANTOprazole 40 MG TAB PO SCH ×2 (07:58→20:42)
[2018-05-25] MEDS: MONTELUKAST SODIUM 10 MG TABLET PO SCH (07:59)
[2018-05-25] MEDS: POTASSIUM CHLORIDE 10 MEQ TABCR PO SCH (07:59)
[2018-05-25] MEDS: SPIRONOLACTONE 25 MG TAB PO SCH (07:59)
[2018-05-25] MEDS: LISINOPRIL 20 MG TAB PO SCH ×2 (07:59→20:41)
[2018-05-25] MEDS: FLUTICASONE HFA 110MCG INHALER INH SCH ×2 (07:59→20:42)
[2018-05-25] MEDS ORDERED: AZITHROMYCIN 250 MG TAB PO SCH (09:00)
--- NOTE | 2018-05-25 09:02 | Cardiology Progress Note ---
Date of Service May 25, 2018 Assessment & Plan (1) RSV (respiratory syncytial virus infection): RSV is complicated with acute exacerbation of asthma along with diastolic heart failure in this elderly patient. The patient is slowly improving. She is still hypertensive today and I will add Brownura. She should still continue the metoprolol, lisinopril and a daily dose of Lasix. (2) Acute asthma exacerbation: She continues to have wheezing and a productive cough. Sputum cultures are pending and the patient was started on antibiotics. Continue steroids and bronchodilators. (3) Atrial fibrillation: Atrial fibrillation is most likely chronic at this point. 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 I would recommend rate control and anticoagulation. (4) Diastolic heart failure: The patient is currently on home diuretics. Subjective The patient had an uneventful night. She has felt improvement in her shortness of breath and is slowly getting better. Physical Exam 2 Vital Signs (Past 24 Hours): Last Vital Signs Temp 37.1 C 05/25/18 06:52 Pulse 78 05/25/18 07:06 Resp 18 05/25/18 07:06 BP 174/93 H 05/25/18 06:52 Pulse Ox 93 05/25/18 07:06 Physical Exam: General: no acute distress and stated age Head: normocephalic, no masses, lesions, tenderness or abnormalities Eyes: conjunctiva are pink and non-injected, sclera clear Neck: supple, no adenopathy, no bruits, normal jugular venous pulse, no hepatojugular reflux Chest: normal shape and normal respiratory effort Lungs: Rhonchi Cardiac Exam: - regular rate & rhythm, no murmurs gallops or rubs - normal S1, normal S2 Pulses: 2(+) throughout Abdomen: abdomen soft, non-tender, no abnormal masses and no hepatosplenomegaly Musculoskeletal: no gait disturbance, no joint inflammation, no deforming arthritis Extremities: no edema and no cyanosis Neuro: grossly normal exam Results & Data Laboratory Results Laboratory Results - last 24 hr 05/25/18 05/25/18 05/25/18 05:16 05:16 05:16 WBC 8.87 RBC 4.41 Hgb 13.3 Hct 40.8 MCV 92.5 MCH 30.2 MCHC 32.6 RDW Std Deviation 43.7 RDW Coeff of Rocío 13.9 Plt Count 318 MPV 10.3 PT 26.1 H INR 2.7 H Sodium 138 Potassium 3.7 Chloride 100 Carbon Dioxide 33 H Anion Gap 5.0 BUN 41 H Creatinine 0.99 Est Cr Clr Drug Dosing 44.1 Est GFR ( Amer) 61.5 Est GFR (Non-Af Amer) 53.1 BUN/Creatinine Ratio 41.2 H Glucose 134 H Calcium 8.6 Medications Administered Current Inpatient Medications Acetaminophen (Tylenol) 650 mg PO Q4H PRN PRN Reason: Pain or Fever Stop: 06/20/18 20:27 Al Hydrox/Mg Hydrox/Simethicone (Maalox) 15 ml PO Q4H PRN PRN Reason: Dyspepsia Stop: 06/20/18 20:27 Azithromycin (Zithromax) 500 mg PO QAM [facility] Stop: 06/01/18 08:59 Cefuroxime Axetil (Ceftin) 500 mg PO Q12 [facility]; Protocol Stop: 06/01/18 08:59 Doxazosin Mesylate (Cardura) 2 mg PO HS [facility] Stop: 06/24/18 20:59 Escitalopram Oxalate (Lexapro) 10 mg PO DAILY [facility] Stop: 06/21/18 08:59 Last Admin: 05/25/18 07:58 Dose: 10 mg Fluticasone Propionate (Flovent Hfa 110mch) 2 puffs INH BID [facility] Stop: 06/20/18 20:59 Last Admin: 05/25/18 07:59 Dose: 2 puffs Furosemide (Lasix) 40 mg PO DAILY [facility] Stop: 06/21/18 08:59 Last Admin: 05/25/18 07:58 Dose: 40 mg Guaifenesin/Dextromethorphan (Robitussin Cough-Chest Dm) 5 ml PO Q6H PRN PRN Reason: Cough Stop: 06/20/18 20:27 Last Admin: 05/22/18 08:04 Dose: 5 ml Methylprednisolone 40 mg/ (Syringe) 0.64 mls @ 1.5 mls/min IV Q6H [facility] Stop: 06/21/18 00:00 Last Admin: 05/25/18 05:57 Dose: 1.5 mls/min Levalbuterol HCl (Xopenex 0.63 Mg/3 Ml Neb) 0.63 mg NEB Q6R [facility] Stop: 06/20/18 20:27 Last Admin: 05/25/18 07:06 Dose: 0.63 mg Levothyroxine Sodium (Synthroid) 125 mcg PO DAILYBB [facility] Stop: 06/21/18 06:29 Last Admin: 05/25/18 05:57 Dose: 125 mcg Lisinopril (Zestril) 20 mg PO BID [facility] Stop: 06/23/18 20:59 Last Admin: 05/25/18 07:59 Dose: 20 mg Lorazepam (Ativan) 0.5 mg PO TID PRN PRN Reason: Anxiety Stop: 06/20/18 20:27 Magnesium Hydroxide (Milk Of Magnesia) 30 ml PO Q12H PRN PRN Reason: Constipation Stop: 06/20/18 20:27 Menthol (Nice) 1 raymundo BUCCAL UD PRN PRN Reason: Sore Throat Stop: 06/22/18 11:39 Metoprolol Succinate (Toprol Xl) 100 mg PO BID [facility] Stop: 06/22/18 08:59 Last Admin: 05/25/18 07:58 Dose: 100 mg Montelukast Sodium (Singulair) 10 mg PO DAILY [facility] Stop: 06/21/18 08:59 Last Admin: 05/25/18 07:59 Dose: 10 mg Multivitamins (Multivitamin Tab) 1 tab PO DAILY [facility] Stop: 06/21/18 08:59 Last Admin: 05/25/18 07:58 Dose: 1 tab Multivitamins/Minerals (Caltrate Plus) 1 tab PO TID [facility] Stop: 06/20/18 20:59 Last Admin: 05/25/18 07:58 Dose: 1 tab Nitroglycerin (Nitrostat) 0.4 mg SL UD PRN PRN Reason: Chest Pain Stop: 06/20/18 20:27 Pantoprazole Sodium (Protonix) 40 mg PO DAILY [facility] Stop: 06/21/18 08:59 Last Admin: 05/25/18 07:58 Dose: 40 mg Polyethylene Glycol (Miralax Powder Packet) 17 gm PO DAILY PRN PRN Reason: Constipation Stop: 06/20/18 20:27 Potassium Chloride (Klor-Con M10) 10 meq PO DAILY [facility] Stop: 06/21/18 08:59 Last Admin: 05/25/18 07:59 Dose: 10 meq Simvastatin (Zocor) 20 mg PO HS [facility] Stop: 06/20/18 20:59 Last Admin: 05/24/18 21:28 Dose: 20 mg Spironolactone (Aldactone) 25 mg PO DAILY [facility] Stop: 06/21/18 08:59 Last Admin: 05/25/18 07:59 Dose: 25 mg Warfarin Sodium (Coumadin) 2 mg PO MoWeFr@1600 [facility]; Protocol Stop: 06/21/18 15:59 Last Admin: 05/24/18 16:40 Dose: 2 mg Warfarin Sodium (Coumadin) 4 mg PO SuTuThSa@1600 [facility]; Protocol Stop: 06/20/18 20:27 Last Admin: 05/23/18 15:49 Dose: 4 mg _ (1) Acute asthma exacerbation Asthma severity: moderate Asthma persistence: persistent Qualified Code(s): J45.41 - Moderate persistent asthma with (acute) exacerbation (2) Atrial fibrillation Atrial fibrillation type: chronic Qualified Code(s): I48.2 - Chronic atrial fibrillation
[2018-05-25] MEDS: cefUROXime axetil 500 MG TAB PO SCH ×2 (09:52→20:42)
--- NOTE | 2018-05-25 10:17 | Hospitalist Progress Note ---
Date of Service May 25, 2018 Assessment & Plan (1) Acute asthma exacerbation: Improved from yesterday -IV methylprednisolone 40 mg IV every 8 hours -Xopenex every 6 hours -On Ceftin and Zithromax -Aggressive pulmonary toilet with incentive spirometry, mucolytics, flutter valve -continue advair as prescribed -Oxygen as needed -Pulmonary eval with Dr. Randolph (2) RSV (respiratory syncytial virus infection): -droplet precautions -plan as above with aggressive pulmonary toilet Send sputum for culture (3) Atrial fibrillation: -continue metoprolol succinate was changed to 100 twice daily yesterday -INR subtherapeutic secondary to patient not taking warfarin due to not feeling well -Stop Lovenox, INR 2.6 -INR daily (4) CHF (congestive heart failure): -CXR consistent with pulmonary vascular congestion -Lasix 40 mg IV every 12 -aldactone, lisinopril, metoprolol -daily weights -I and O -heart healthy diet (5) Hypokalemia: -Potassium normal currently -continue daily KCL 10meq -monitor bmp and replete as necessary (6) Hypothyroidism: -continue levothyroxine (7) HTN (hypertension): -blood pressure still elevated, lisinopril increased to every 12, metoprolol dose doubled yesterday, blood pressure came down 10 points systolic -Lasix 40 mg IV every 12 -Add Hydralazine 25 p.o. every 6 -continue oral outpatient meds including lisinopril, aldactone, metoprolol, lasix -monitor bp and creatinine (8) Dyslipidemia: -continue statin (9) CKD (chronic kidney disease), stage III: -Bun/Cr stable -monitor daily labs (10) DVT prophylaxis: -INR therapeutic -continue warfarin 4mg MWF, 2mg all other days -INR daily. Disposition: to be determined Follow up: PCP Dr. El upon discharge DC when lungs are more clear, today she is improved but still not clear Subjective Breathing is much improved from yesterday, patient notes that her sputum has changed from clear to yellow. ROS-No Headache, No Visual Changes, No Fever, No Chills, No Neck Pain or Stiffness, No Chest Pain, No Palpitations, less SOB, less MULLER, + yellow sputum, positive wheezing, improved from yesterday, No Abdominal Pain, No Diarrhea, No Hematemesis, No Hemoptysis, No Unexpected Weight Loss, No Flank pain, No Melena , No Hematochezia, No Frequency, No Urgency, No Burning, No Hematuria, No Rashes , No Diaphoresis. Appetite is Normal, positive dependent edema Physical Exam Gen-AAO x 3, NAD, Afebrile, obese Head-NCAT, EOMI, PERRLA, Anicteric Sclera, No Posterior Pharyngeal Erythema Neck-Supple, No JVD, No Thyromegaly, No Masses, No LAD, No Bruits Lungs-positive wheezing, but much improved since admission, No Crepitus, lungs less tight than yesterday, but still tight Chest-No S4, +S1, +S2, No S3, No Murmurs, No Rubs, No Gallops, No Ectopy Abdomen-Soft, Bowel Sounds Present, Non Tender, Non Distended, No Hepatomegaly, No Splenomegaly, No Palpable Masses, No Rebound, No Rigidity, No Guarding Musculoskeletal-Full Range of Motion Bilaterally, No CVAT Extremities-No Cyanosis, No Clubbing, No Edema Nuero-Cranial Nerves II-XII grossly intact, Motor WNL, DTRs WNL, Strength WNL, No Focal Psych-Normal Mood Physical Exam 2 Vital Signs (Past 24 Hours): Last Vital Signs Temp 37.1 C 05/25/18 06:52 Pulse 78 05/25/18 07:06 Resp 18 05/25/18 07:06 BP 174/93 H 05/25/18 06:52 Pulse Ox 93 05/25/18 07:06 Results & Data Laboratory Results Current Diagnoses Respiratory syncytial virus as the cause of diseases classified elsewhere (05/23) Hypothyroidism, unspecified (05/23/18) Hyperlipidemia, unspecified (05/23/18) Hypokalemia (05/23/18) Essential (primary) hypertension (05/23/18) Paroxysmal atrial fibrillation (05/23/18) Chronic atrial fibrillation (05/23/18) Unspecified diastolic (congestive) heart failure (05/23/18) Moderate persistent asthma with (acute) exacerbation (05/23/18) Chronic kidney disease, stage 3 (moderate) (05/23/18) Allergies epinephrine Adverse Reaction (Severe, Verified 02/04/17 07:09) SEVERE TACHYCARDIA Beta-Blockers (Beta-Adrenergic Bloc Adverse Reaction (Intermediate, Verified 07:09) CHF sotalol Adverse Reaction (Intermediate, Verified 02/04/17 07:09) CHF Height/Weight/Isolation Height 5 ft 1 in Weight 87.8 kg Isolation Type Droplet Precautions Chemistry 05/25/18 05:16 Sodium 138 Potassium 3.7 Chloride 100 Carbon Dioxide 33 H Anion Gap 5.0 BUN 41 H Creatinine 0.99 Glucose 134 H Microbiology 05/25/18 07:45 Sputum, Expectorated Gram Stain - Pending 05/25/18 07:45 Sputum, Expectorated Sputum Culture - Pending _ (1) Acute asthma exacerbation Asthma severity: moderate Asthma persistence: persistent Qualified Code(s): J45.41 - Moderate persistent asthma with (acute) exacerbation (2) Atrial fibrillation Atrial fibrillation type: chronic Qualified Code(s): I48.2 - Chronic atrial fibrillation (3) CHF (congestive heart failure) Heart failure type: diastolic Heart failure chronicity: unspecified Qualified Code(s): I50.30 - Unspecified diastolic (congestive) heart failure (4) Hypothyroidism Hypothyroidism type: unspecified Qualified Code(s): E03.9 - Hypothyroidism, unspecified (5) HTN (hypertension) Hypertension type: essential hypertension Qualified Code(s): I10 - Essential (primary) hypertension
--- NOTE | 2018-05-25 11:04 | CT Scan Report ---
CT chest wo con CLINICAL HISTORY: Refractory COPD WHEEZING, SHORTNESS OF BREATH. COMPARISON STUDY: 11/04/2015, chest x-ray dated 05/21/2018 CT DOSE: 497.76 mGy.cm TECHNIQUE: CT of the thorax was performed from the thoracic inlet to the lung bases. Images are revi ewed in the axial, sagittal, and coronal planes. IV contrast was not administered for this examinatio n. A dose lowering technique was utilized adhering to the principles of ALARA. FINDINGS: There is a moderate hiatal hernia. Thoracic aorta: The thoracic aorta is normal in course and caliber, noting standard 3 vessel arch romain dulce. Heart: The heart is mildly enlarged. Lungs and pleural spaces: No pleural effusions are visualized. There is no focal pulmonary consolidat ion. There are few tiny right middle lobe densities, similar to the preceding study and of doubtful s ignificance. Mediastinum: There is no evidence of pathologic mediastinal lymphadenopathy Marilyn: There is no evidence of pathologic hilar adenopathy given the limitations of a noncontrast stud y Axilla: There is no evidence of pathologic axillary lymphadenopathy Upper abdomen: There are bilateral renal cysts including multiple presumed hyperdense left renal cys t. Skeletal structures: Advanced arthritic changes are present within the right shoulder. No destructive lesions are evident IMPRESSION: 1. No acute intrathoracic findings 2. Moderate hiatal hernia 3. No evidence of pathologic adenopathy 4. No evidence of acute parenchymal consolidation Electronically signed by: Isael Ponce M.D. 05/25/2018 11:02 AM
[2018-05-25] MEDS: WARFARIN SOD 4 MG TAB PO SCH (16:00)
--- NOTE | 2018-05-25 20:06 | Pulmonary Consultation ---
Date of Consultation May 25, 2018 Assessment & Plan (1) Shortness of breath: Impression: 1. Persistent cough secondary to GERD and worsened by moderate hiatal hernia, URI with RSV also contributing. 2. RSV bronchitis. 3. Diastolic heart failure. 4. Possible reactive airways exacerbated by the above. Plan: 1. Aggressive treatment of hiatal hernia including PPI twice daily and pro- critical drug, since the patient is already on azithromycin, I would keep it 3 times a week for a total of 2 weeks. 2. Continue the rest of her medications. 3. She would benefit from pulmonary function testing as an outpatient. 4. Patient can be discharged and managed as an outpatient. Thank you, will follow as needed. History of Present Illness Reason for Consultation: Shortness of breath Requesting Physician: Dr. Russo Attending Physician: Lukas Russo, History of Present Illness Dear Dr. Russo: Thank you for the kind referral of Mrs. Gorman to pulmonary service. This is 82-year-old female with history of diastolic heart failure, hiatal hernia, history of A. fib on Coumadin, morbid obesity, chronic kidney disease, presented to the hospital with persistent cough, headache and rhinorrhea accompanied with persistent shortness of breath and wheezing in addition to cough with difficulty raising sputum. The patient denies any chest pain, no nausea or vomiting, but she does have a heartburn where she has been treated with PPI as an outpatient. She denies any epigastric pain, no abdominal pain no diarrhea and no constipation. She does have increased swelling in her lower extremities. The patient for the past several days noted increasing shortness of breath accompanied with cough and URI symptoms. She was treated with prednisone as an outpatient without any benefit. The patient did not have any episodes similar to this episode, she does have an inhaler that she uses only as needed with albuterol, she has not been smoker all her life no secondhand exposure to smoking either. She has not been followed by a summer associate and never had a pulmonary function test. 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 Allergies Allergy/AdvReac Type Severity Reaction Status Date / Time epinephrine AdvReac Severe SEVERE Verified 02/04/17 07:09 TACHYCARDIA Beta-Blockers AdvReac Intermediate CHF Verified 02/04/17 07:09 (Beta-Adrenergic Bloc sotalol AdvReac Intermediate CHF Verified 02/04/17 07:09 Home Medications Home Medications Medication Instructions Recorded Confirmed Type albuterol sulfate 2 puff INHALATION Q6H PRN 05/21/18 05/21/18 History calcium carbonate-vitamin D3 1 tab PO TID 05/21/18 05/21/18 History [Calcium 500 + D (D3)] escitalopram oxalate 10 mg PO DAILY 05/21/18 05/21/18 History fluticasone [Flovent HFA] 2 inhaler INHALATION BID 05/21/18 05/21/18 History furosemide [Lasix] 40 mg PO DAILY 05/21/18 05/21/18 History levothyroxine 125 mcg PO DAILY 05/21/18 05/21/18 History lisinopril 10 mg PO DAILY 05/21/18 05/21/18 History lorazepam 0.5 mg PO TID PRN 05/21/18 05/21/18 History metoprolol succinate 50 mg PO BID 05/21/18 05/21/18 History montelukast 10 mg PO DAILY 05/21/18 05/21/18 History multivitamin 1 tab PO DAILY 05/21/18 05/21/18 History nitroglycerin [Nitrostat] 0.4 mg SUBLINGUAL UD PRN 05/21/18 05/21/18 History omeprazole 20 mg PO DAILY 05/21/18 05/21/18 History potassium chloride 10 meq PO DAILY 05/21/18 05/21/18 History simvastatin 20 mg PO HS 05/21/18 05/21/18 History spironolactone [Aldactone] 25 mg PO DAILY 05/21/18 05/21/18 History warfarin 2 mg PO MOWEFR 05/21/18 05/21/18 History warfarin 4 mg PO SUTUTHSA 05/21/18 05/21/18 History Patient History Medical History Hypertension (Chronic) Atrial fibrillation (Chronic) Warfarin anticoagulation (Chronic) Hypothyroidism (Chronic) Mild mitral regurgitation (Chronic) Dyslipidemia (Chronic) Osteoporosis (Chronic) Essential tremor (Chronic) HTN (hypertension) (Chronic) Cirrhosis of liver (Chronic) "noted on CT abdomen [facility] 10/31/15" CKD (chronic kidney disease), stage III (Chronic) Dyspnea CHF (congestive heart failure) (Acute) Echo 02/2018 The examination is adequate to evaluate the referral indication. The left ventricular cavity size is normal. The qualitative LV ejection fraction is 55-59% (normal). The right ventricular systolic function is normal as assessed by tricuspid annular plane systolic excursion (TAPSE) (normal >1.7 cm). The left atrium is severely enlarged (>48 ml/m^2,). The right atrium is moderately enlarged. There is moderate mitral annular calcification. Moderate mitral regurgitation is present. Mild tricuspid regurgitation is present. Chest pain radiating to arm (Acute) Surgical History History of hysterectomy (Chronic) H/O colonoscopy (Chronic) S/P reduction mammoplasty (Chronic) H/O bladder repair surgery (Chronic) Family History Father , age 54 Heart attack Mother , age 75 Heart attack Social History marital status: Current Living Situation: Family Current Living Situation Comment: Lives with son. Other Information That Helps Us Care for You: No Feels Safe at Home: Yes Safety Concerns: Feels Safe At This Time Smoking Status: Never smoker Do You Dip or Chew Tobacco: No Hx Alcohol Use: Yes Alcohol type: wine Alcohol Intake Frequency: holidays/ special occasions only Hx Substance Use: No Beliefs That Will Affect Care: None Communication Ability: Effective Review of Systems Review of system apart from the above was unremarkable including 14 systems. Physical Exam 2 Vital Signs (Past 24 Hours): Last Vital Signs Temp 36.7 C 05/25/18 19:21 Pulse 80 05/25/18 19:21 Resp 18 05/25/18 19:21 BP 156/73 H 05/25/18 19:21 Pulse Ox 97 05/25/18 19:21 Physical Exam: Vital signs are stable, S1-S2 regular rate and rhythm, she is 97% on room air, lungs are clear except for upper airway wheezing, no oral thrush, abdomen is benign, trace edema in the periphery. Results & Data Laboratory Results Labs were reviewed which showed INR of 2.7, stable CBC, and BMP. Diagnostic Findings Chest CT showed moderate hiatal hernia.
[2018-05-25] MEDS: SIMVASTATIN 20 MG TAB PO SCH (20:42)
[2018-05-25] MEDS: DOXAZosin MESYLATE TAB 2 MG TAB PO SCH (20:43)
[2018-05-26] MEDS: LEVALBUTEROL HCL 0.63 MG/3 ML NEB NEB SCH ×4 (01:59→19:33)
[2018-05-26 05:49] LABS: Hematocrit (blood only) 40.5 % (37-47); Hemoglobin 12.8 g/dL (12.0-16.0); Mean Corpuscular Hgb Conc 31.6 g/dL (32-36); Mean Corpuscular Volume 90.4 fL (80-100); Mean Platelet Volume 10.2 fL (7.4-10.4); Platelet Count 289 K/uL (130-400); RDW Coefficient of Variation 13.4 % (11.5-14.5); RDW Standard Deviation 43.5 fL (36.4-46.3); Red Blood Count 4.48 M/uL (4.2-5.4); White Blood Count 8.53 K/uL (4.8-10.8)
[2018-05-26 05:58] LABS: INR 3.5 (0.9-1.1); Prothrombin Time 32.8 Seconds (9.0-12.0)
[2018-05-26 06:19] LABS: Albumin Level 2.9 gm/dl (3.4-5.0); BUN Creatinine Ratio 43.1 (10-20); Calcium 8.3 mg/dl (8.5-10.1); Creatinine Clr Calc Pharmacy 43.8 ml/min; Est GFR (African American) 61.5; Est GFR (Non-African American) 53.1; Potassium 3.7 mmol/L (3.5-5.1)
[2018-05-26] MEDS: LEVOTHYROXINE SODIUM 125 MCG TABLET PO SCH (06:21)
[2018-05-26 06:22] LABS: Bilirubin,Total 0.9 mg/dl (0.2-1); Total Protein 5.9 gm/dl (6.4-8.2)
[2018-05-26] MEDS: MULTIVITAMIN TAB PO SCH (07:33)
[2018-05-26] MEDS: LISINOPRIL 20 MG TAB PO SCH ×2 (07:33→21:05)
[2018-05-26] MEDS: METOPROLOL SUCC 50MG EXT REL TAB PO SCH ×2 (07:33→21:07)
[2018-05-26] MEDS: POTASSIUM CHLORIDE 10 MEQ TABCR PO SCH (07:34)
[2018-05-26] MEDS: cefUROXime axetil 500 MG TAB PO SCH ×2 (07:34→21:09)
[2018-05-26] MEDS: MONTELUKAST SODIUM 10 MG TABLET PO SCH (07:34)
[2018-05-26] MEDS: ESCITALOPRAM OXALATE 10 MG TAB PO SCH (07:34)
[2018-05-26] MEDS: CALCIUM 600MG + VIT D 400 IU TAB PO SCH ×3 (07:34→21:17)
[2018-05-26] MEDS: FUROSEMIDE 40 MG TAB PO SCH (07:34)
[2018-05-26] MEDS: SPIRONOLACTONE 25 MG TAB PO SCH (07:35)
[2018-05-26] MEDS: FLUTICASONE HFA 110MCG INHALER INH SCH ×2 (07:37→21:17)
[2018-05-26] MEDS: PANTOprazole 40 MG TAB PO SCH ×2 (07:38→21:08)
--- NOTE | 2018-05-26 09:25 | Discharge Summary ---
Date of Service May 26, 2018 Admission HPI Per Admitting Provider This is an 82-year-old female who has a significant PMH of atrial fibrillation anticoagulated on warfarin, hypothyroidism, CKD stage III, hyperlipidemia, HTN, diastolic CHF, asthma, hepatic cirrhosis, anxiety who presents to [facility] secondary to cough, shortness of breath times 4-5 days. Friend is at bedside. She complains of cough with thick, clear sputum, shortness of breath with exertion and at rest, wheezing, temperature of 99.8. She initially presented to outpatient weekend clinic in which influenza swab was negative, but test positive for RSV. She was given prednisone pack without relief. She has been doing her albuterol inhaler w/o relief. Appetite has been poor for the past 2-3 days therefore she has not taken any of her medications, "I can't take medications on an empty stomach." Denies chills, sweats, lightheadedness, dizziness, chest pain, hemoptysis, nausea, vomiting, diarrhea, abdominal pain, change in urinary or bowel habits. Discharge Data Allergies Allergy/AdvReac Type Severity Reaction Status Date / Time epinephrine AdvReac Severe SEVERE Verified 02/04/17 07:09 TACHYCARDIA Beta-Blockers AdvReac Intermediate CHF Verified 02/04/17 07:09 (Beta-Adrenergic Bloc sotalol AdvReac Intermediate CHF Verified 02/04/17 07:09 Consultations 05/21/18 17:43 ED Decision to Admit Stat 05/21/18 20:28 Consult Case Management - Discharge Planning Routine 05/25/18 10:21 Consult Pulmonology Routine Ordered Studies 05/25/18 10:22 CT chest wo con Routine Hospital Course (1) Acute asthma exacerbation: Improved from yesterday -IV methylprednisolone 40 mg IV every 8 hours -Xopenex every 6 hours -On Ceftin and Zithromax -Aggressive pulmonary toilet with incentive spirometry, mucolytics, flutter valve -continue advair as prescribed -Oxygen as needed -Pulmonary eval with Dr. Randolph (2) RSV (respiratory syncytial virus infection): -droplet precautions -plan as above with aggressive pulmonary toilet Send sputum for culture (3) Atrial fibrillation: -continue metoprolol succinate was changed to 100 twice daily yesterday -INR subtherapeutic secondary to patient not taking warfarin due to not feeling well -Stop Lovenox, INR 2.6 -INR daily (4) CHF (congestive heart failure): -CXR consistent with pulmonary vascular congestion -Lasix 40 mg IV every 12 -aldactone, lisinopril, metoprolol -daily weights -I and O -heart healthy diet (5) Hypokalemia: -Potassium normal currently -continue daily KCL 10meq -monitor bmp and replete as necessary (6) Hypothyroidism: -continue levothyroxine (7) HTN (hypertension): -blood pressure still elevated, lisinopril increased to every 12, metoprolol dose doubled yesterday, blood pressure came down 10 points systolic -Lasix 40 mg IV every 12 -Add Hydralazine 25 p.o. every 6 -continue oral outpatient meds including lisinopril, aldactone, metoprolol, lasix -monitor bp and creatinine (8) Dyslipidemia: -continue statin (9) CKD (chronic kidney disease), stage III: -Bun/Cr stable -monitor daily labs (10) DVT prophylaxis: -INR therapeutic -continue warfarin 4mg MWF, 2mg all other days -INR daily. Disposition: to be determined Follow up: PCP Dr. El upon discharge DC when lungs are more clear, today she is improved but still not clear Discharge Plan Discharge Items Reason For Visit: SOB Condition: Fair Prescriptions: No Action furosemide [Lasix] 40 mg Tablet 40 mg PO DAILY RF: 0 metoprolol succinate 50 mg Tablet Extended Release 24 Hr 50 mg PO BID RF: 0 spironolactone [Aldactone] 25 mg Tablet 25 mg PO DAILY RF: 0 lorazepam 0.5 mg Tablet 0.5 mg PO TID PRN (Reason: Anxiety) RF: 0 levothyroxine 125 mcg tablet 125 mcg PO DAILY RF: 0 omeprazole 20 mg Capsule,Delayed Release(Dr/Ec) 20 mg PO DAILY RF: 0 montelukast 10 mg Tablet 10 mg PO DAILY RF: 0 albuterol sulfate 90 mcg/actuation Hfa Aerosol Inhaler 2 puff INHALATION Q6H PRN (Reason: SOB) RF: 0 fluticasone [Flovent HFA] 110 mcg/actuation HFA aerosol inhaler 2 inhaler Inhalation BID RF: 0 multivitamin Tablet 1 tab PO DAILY RF: 0 potassium chloride 10 mEq Capsule, Extended Release 10 meq PO DAILY RF: 0 warfarin 4 mg tablet [facility] RF: 0 warfarin 4 mg Tablet 2 mg PO MOWEFR RF: 0 simvastatin 20 mg Tablet 20 mg PO HS RF: 0 lisinopril 10 mg Tablet 10 mg PO DAILY RF: 0 nitroglycerin [Nitrostat] 0.4 mg Tablet, Sublingual 0.4 mg Sublingual UD PRN (Reason: Chest Pain) RF: 0 escitalopram oxalate 10 mg Tablet 10 mg PO DAILY RF: 0 calcium carbonate-vitamin D3 [Calcium 500 + D (D3)] 500 mg(1,250mg) -125 unit Tablet 1 tab PO TID RF: 0 Admission Data Admit Date/Time: 05/23/18 14:56 Attending Provider: Lukas Russo Admit Provider: Lukas Russo Primary Care Provider: Jovany El Other Providers: Lisa Oglesby ; Lukas Russo ; Erika Randolph Service: Medical
--- NOTE | 2018-05-26 09:28 | Hospitalist Progress Note ---
Date of Service May 26, 2018 Assessment & Plan (1) Acute asthma exacerbation: Breathing worse than yesterday -IV methylprednisolone 40 mg IV every 8 hours -Xopenex every 6 hours -On Ceftin and Zithromax (pulmonary recommend Zithromax 3 times a week for 2 weeks -Aggressive pulmonary toilet with incentive spirometry, mucolytics, flutter valve -continue advair as prescribed -Oxygen as needed -Pulmonary Dr. Randolph on the case, Dr. Anglin also on the case from cardiology (2) RSV (respiratory syncytial virus infection): -droplet precautions -plan as above with aggressive pulmonary toilet (3) Atrial fibrillation: -continue metoprolol succinate was changed to 100 twice daily yesterday, rate and blood pressure look good -INR subtherapeutic secondary to patient not taking warfarin due to not feeling well -Stop Lovenox, INR 2.6 -INR daily (4) CHF (congestive heart failure): -CXR consistent with pulmonary vascular congestion -Lasix 40 mg IV every 12 -aldactone, lisinopril, metoprolol -daily weights -I and O -heart healthy diet (5) Hypokalemia: -Potassium normal currently -continue daily KCL 10meq -monitor bmp and replete as necessary (6) Hypothyroidism: -continue levothyroxine (7) HTN (hypertension): -blood pressure normal today, lisinopril increased to every 12, metoprolol dose doubled yesterday, blood pressure came down nicely -Lasix 40 mg p.o. daily -Add Hydralazine 25 p.o. every 6 -continue oral outpatient meds including lisinopril, aldactone, metoprolol, lasix -monitor bp and creatinine (8) Dyslipidemia: -continue statin (9) CKD (chronic kidney disease), stage III: -Bun/Cr stable -monitor daily labs (10) DVT prophylaxis: -INR 3.5 -Hold warfarin -INR daily. Disposition: to be determined Follow up: PCP Dr. El upon discharge DC when lungs are more clear, today she is improved but still not clear Subjective Breathing is a little worse today, patient notes that her sputum has changed from clear to yellow, sputum sample was not good, it was recommended by cardiology and pulmonary to discharge but the nurse had to increase her oxygen today because she was short of breath ROS-No Headache, No Visual Changes, No Fever, No Chills, No Neck Pain or Stiffness, No Chest Pain, No Palpitations, less SOB, less MULLER, + yellow sputum, positive wheezing, improved from yesterday, No Abdominal Pain, No Diarrhea, No Hematemesis, No Hemoptysis, No Unexpected Weight Loss, No Flank pain, No Melena , No Hematochezia, No Frequency, No Urgency, No Burning, No Hematuria, No Rashes , No Diaphoresis. Appetite is Normal, positive dependent edema Physical Exam Gen-AAO x 3, NAD, Afebrile, obese Head-NCAT, EOMI, PERRLA, Anicteric Sclera, No Posterior Pharyngeal Erythema Neck-Supple, No JVD, No Thyromegaly, No Masses, No LAD, No Bruits Lungs-positive wheezing, improved since admission, but still tight, no Crepitus , lungs more tight than yesterday Chest-No S4, +S1, +S2, No S3, No Murmurs, No Rubs, No Gallops, No Ectopy Abdomen-Soft, Bowel Sounds Present, Non Tender, Non Distended, No Hepatomegaly, No Splenomegaly, No Palpable Masses, No Rebound, No Rigidity, No Guarding Musculoskeletal-Full Range of Motion Bilaterally, No CVAT Extremities-No Cyanosis, No Clubbing, No Edema Nuero-Cranial Nerves II-XII grossly intact, Motor WNL, DTRs WNL, Strength WNL, No Focal Psych-Normal Mood Physical Exam 2 Vital Signs (Past 24 Hours): Last Vital Signs Temp 36.8 C 05/26/18 06:51 Pulse 93 H 05/26/18 07:03 Resp 18 05/26/18 07:03 BP 130/67 05/26/18 06:51 Pulse Ox 94 05/26/18 07:03 Results & Data Laboratory Results Current Diagnoses Respiratory syncytial virus as the cause of diseases classified elsewhere (05/23) Hypothyroidism, unspecified (05/23/18) Hyperlipidemia, unspecified (05/23/18) Hypokalemia (05/23/18) Essential (primary) hypertension (05/23/18) Paroxysmal atrial fibrillation (05/23/18) Chronic atrial fibrillation (05/23/18) Unspecified diastolic (congestive) heart failure (05/23/18) Moderate persistent asthma with (acute) exacerbation (05/23/18) Chronic kidney disease, stage 3 (moderate) (05/23/18) Shortness of breath (05/23/18) Allergies epinephrine Adverse Reaction (Severe, Verified 02/04/17 07:09) SEVERE TACHYCARDIA Beta-Blockers (Beta-Adrenergic Bloc Adverse Reaction (Intermediate, Verified 07:09) CHF sotalol Adverse Reaction (Intermediate, Verified 02/04/17 07:09) CHF Height/Weight/Isolation Height 5 ft 1 in Weight 86.8 kg Isolation Type Droplet Precautions Chemistry 05/25/18 05/26/18 05:16 05:20 Sodium 138 139 Potassium 3.7 3.7 Chloride 100 102 Carbon Dioxide 33 H 35 H Anion Gap 5.0 2.0 L BUN 41 H 43 H Creatinine 0.99 0.99 Glucose 134 H 129 H Microbiology 05/25/18 07:45 Sputum, Expectorated Gram Stain - Final 05/25/18 07:45 Sputum, Expectorated Sputum Culture - Preliminary Heavy normal nida present, Final report to follow. _ (1) CHF (congestive heart failure) Heart failure chronicity: unspecified Heart failure type: diastolic Qualified Code(s): I50.30 - Unspecified diastolic (congestive) heart failure (2) Atrial fibrillation Atrial fibrillation type: chronic Qualified Code(s): I48.2 - Chronic atrial fibrillation (3) Hypothyroidism Hypothyroidism type: unspecified Qualified Code(s): E03.9 - Hypothyroidism, unspecified (4) Acute asthma exacerbation Asthma persistence: persistent Asthma severity: moderate Qualified Code(s): J45.41 - Moderate persistent asthma with (acute) exacerbation (5) HTN (hypertension) Hypertension type: essential hypertension Qualified Code(s): I10 - Essential (primary) hypertension
--- NOTE | 2018-05-26 09:53 | Cardiology Progress Note ---
Date of Service May 26, 2018 Assessment & Plan (1) RSV (respiratory syncytial virus infection): RSV is complicated with acute exacerbation of asthma along with diastolic heart failure in this elderly patient. The patient is slowly improving. Lungs seem to be clear today. (2) Acute asthma exacerbation: She has less of a cough today and seems to be doing better. (3) Atrial fibrillation: Atrial fibrillation is most likely chronic at this point. 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 I would recommend rate control and anticoagulation. (4) Diastolic heart failure: The patient is currently on home diuretics. Subjective The patient was a little dizzy this morning but seems to be okay now. Still a little bit short of breath with ambulation. Physical Exam 2 Vital Signs (Past 24 Hours): Last Vital Signs Temp 36.8 C 05/26/18 06:51 Pulse 93 H 05/26/18 07:03 Resp 18 05/26/18 07:03 BP 130/67 05/26/18 06:51 Pulse Ox 94 05/26/18 07:03 Physical Exam: General: no acute distress and stated age Head: normocephalic, no masses, lesions, tenderness or abnormalities Eyes: conjunctiva are pink and non-injected, sclera clear Neck: supple, no adenopathy, no bruits, normal jugular venous pulse, no hepatojugular reflux Chest: normal shape and normal respiratory effort Lungs: clear to auscultation and percussion Cardiac Exam: - regular rate & rhythm, no murmurs gallops or rubs - normal S1, normal S2 Pulses: 2(+) throughout Abdomen: abdomen soft, non-tender, no abnormal masses and no hepatosplenomegaly Musculoskeletal: no gait disturbance, no joint inflammation, no deforming arthritis Extremities: no edema and no cyanosis Neuro: grossly normal exam 05/26/18 05/26/18 05/26/18 05:20 05:20 05:20 WBC 8.53 RBC 4.48 Hgb 12.8 Hct 40.5 MCV 90.4 MCH 28.6 MCHC 31.6 L RDW Std Deviation 43.5 RDW Coeff of Rocío 13.4 Plt Count 289 MPV 10.2 PT 32.8 H INR 3.5 H Sodium 139 Potassium 3.7 Chloride 102 Carbon Dioxide 35 H Anion Gap 2.0 L BUN 43 H Creatinine 0.99 Est Cr Clr Drug Do sing 43.8 Est GFR ( A hayde) 61.5 Est GFR (Non-Af Am er) 53.1 BUN/Creatinine Rat io 43.1 H Glucose 129 H Calcium 8.3 L Total Bilirubin 0.9 AST 13 L ALT 30 Alkaline Phosphata se 56 Total Protein 5.9 L Albumin 2.9 L Globulin 3.0 Albumin/Globulin R atio 1.0 Results & Data Medications Administered Current Inpatient Medications Acetaminophen (Tylenol) 650 mg PO Q4H PRN PRN Reason: Pain or Fever Stop: 06/20/18 20:27 Al Hydrox/Mg Hydrox/Simethicone (Maalox) 15 ml PO Q4H PRN PRN Reason: Dyspepsia Stop: 06/20/18 20:27 Azithromycin (Zithromax) 500 mg PO [id number] [facility] Stop: 06/09/18 08:59 Cefuroxime Axetil (Ceftin) 500 mg PO Q12 [facility]; Protocol Stop: 06/01/18 08:59 Last Admin: 05/26/18 07:34 Dose: 500 mg Doxazosin Mesylate (Cardura) 2 mg PO HS [facility] Stop: 06/24/18 20:59 Last Admin: 05/25/18 20:43 Dose: 2 mg Escitalopram Oxalate (Lexapro) 10 mg PO DAILY [facility] Stop: 06/21/18 08:59 Last Admin: 05/26/18 07:34 Dose: 10 mg Fluticasone Propionate (Flovent Hfa 110mch) 2 puffs INH BID [facility] Stop: 06/20/18 20:59 Last Admin: 05/26/18 07:37 Dose: 2 puffs Furosemide (Lasix) 40 mg PO DAILY [facility] Stop: 06/21/18 08:59 Last Admin: 05/26/18 07:34 Dose: 40 mg Guaifenesin/Dextromethorphan (Robitussin Cough-Chest Dm) 5 ml PO Q6H PRN PRN Reason: Cough Stop: 06/20/18 20:27 Last Admin: 05/22/18 08:04 Dose: 5 ml Hydralazine HCl (Apresoline) 25 mg PO Q6 [facility] Stop: 06/24/18 11:59 Last Admin: 05/26/18 06:21 Dose: 25 mg Levalbuterol HCl (Xopenex 0.63 Mg/3 Ml Neb) 0.63 mg NEB Q6R [facility] Stop: 06/20/18 20:27 Last Admin: 05/26/18 07:02 Dose: 0.63 mg Levothyroxine Sodium (Synthroid) 125 mcg PO DAILYBB [facility] Stop: 06/21/18 06:29 Last Admin: 05/26/18 06:21 Dose: 125 mcg Lisinopril (Zestril) 20 mg PO BID [facility] Stop: 06/23/18 20:59 Last Admin: 05/26/18 07:33 Dose: 20 mg Lorazepam (Ativan) 0.5 mg PO TID PRN PRN Reason: Anxiety Stop: 06/20/18 20:27 Magnesium Hydroxide (Milk Of Magnesia) 30 ml PO Q12H PRN PRN Reason: Constipation Stop: 06/20/18 20:27 Menthol (Nice) 1 raymundo BUCCAL UD PRN PRN Reason: Sore Throat Stop: 06/22/18 11:39 Metoprolol Succinate (Toprol Xl) 100 mg PO BID [facility] Stop: 06/22/18 08:59 Last Admin: 05/26/18 07:33 Dose: 100 mg Montelukast Sodium (Singulair) 10 mg PO DAILY [facility] Stop: 06/21/18 08:59 Last Admin: 05/26/18 07:34 Dose: 10 mg Multivitamins (Multivitamin Tab) 1 tab PO DAILY [facility] Stop: 06/21/18 08:59 Last Admin: 05/26/18 07:33 Dose: 1 tab Multivitamins/Minerals (Caltrate Plus) 1 tab PO TID [facility] Stop: 06/20/18 20:59 Last Admin: 05/26/18 07:34 Dose: 1 tab Nitroglycerin (Nitrostat) 0.4 mg SL UD PRN PRN Reason: Chest Pain Stop: 06/20/18 20:27 Pantoprazole Sodium (Protonix) 40 mg PO BID [facility] Stop: 06/24/18 20:59 Last Admin: 05/26/18 07:38 Dose: 40 mg Polyethylene Glycol (Miralax Powder Packet) 17 gm PO DAILY PRN PRN Reason: Constipation Stop: 06/20/18 20:27 Potassium Chloride (Klor-Con M10) 10 meq PO DAILY [facility] Stop: 06/21/18 08:59 Last Admin: 05/26/18 07:34 Dose: 10 meq Simvastatin (Zocor) 20 mg PO HS [facility] Stop: 06/20/18 20:59 Last Admin: 05/25/18 20:42 Dose: 20 mg Spironolactone (Aldactone) 25 mg PO DAILY [facility] Stop: 06/21/18 08:59 Last Admin: 05/26/18 07:35 Dose: 25 mg Warfarin Sodium (Coumadin) 2 mg PO [id number] [facility]; Protocol Stop: 06/21/18 15:59 Last Admin: 05/24/18 16:40 Dose: 2 mg Warfarin Sodium (Coumadin) 4 mg PO [id number] [facility]; Protocol Stop: 06/20/18 20:27 Last Admin: 05/25/18 16:00 Dose: 4 mg _ (1) Acute asthma exacerbation Asthma severity: moderate Asthma persistence: persistent Qualified Code(s): J45.41 - Moderate persistent asthma with (acute) exacerbation (2) Atrial fibrillation Atrial fibrillation type: chronic Qualified Code(s): I48.2 - Chronic atrial fibrillation
--- NOTE | 2018-05-26 15:09 | Pulmonology Progress Note ---
Date of Service May 26, 2018 Assessment & Plan (1) Shortness of breath: Impression: 1. Persistent cough secondary to GERD and worsened by moderate hiatal hernia, URI with RSV also contributing. 2. RSV bronchitis. 3. Diastolic heart failure. 4. Possible reactive airways exacerbated by the above. Will need outpatient workup for asthma. Plan: 1. Aggressive treatment of hiatal hernia including PPI twice daily and pro- critical drug, since the patient is already on azithromycin, I would keep it 3 times a week for a total of 2 weeks. Other options would be using Reglan. 2. Continue the rest of her medications. 3. PFTs as outpatient. 4. Patient can be discharged and managed as an outpatient. 5. Agree with your current treatment. Thank you, will follow as needed. Subjective Feels better, no chest pain, shortness of breath has been better, wheezing subsided. Physical Exam 2 Vital Signs (Past 24 Hours): Last Vital Signs Temp 36.3 C L 05/26/18 15:04 Pulse 82 05/26/18 15:04 Resp 18 05/26/18 15:04 BP 95/60 L 05/26/18 15:04 Pulse Ox 93 05/26/18 15:04 Physical Exam: Vital signs are stable, O2 sat 93% on room air, S1-S2 regular rate and rhythm, lungs are scattered wheezing, improved significantly from yesterday, abdomen is benign, edema. Neurologically no focality. No rash. No oral thrush. Results & Data Laboratory Results Reviewed with normal CBC, INR is 3.5, BNP is acceptable. She is positive for RSV screen. Diagnostic Findings No new imaging.
[2018-05-26] MEDS: SIMVASTATIN 20 MG TAB PO SCH (21:08)
[2018-05-26] MEDS: DOXAZosin MESYLATE TAB 2 MG TAB PO SCH (21:11)
[2018-05-27] MEDS: LEVALBUTEROL HCL 0.63 MG/3 ML NEB NEB SCH ×2 (01:48→07:10)
[2018-05-27] MEDS: LEVOTHYROXINE SODIUM 125 MCG TABLET PO SCH (05:16)
[2018-05-27 06:10] LABS: Hematocrit (blood only) 41.5 % (37-47); Hemoglobin 13.1 g/dL (12.0-16.0); Mean Corpuscular Hgb Conc 31.6 g/dL (32-36); Mean Corpuscular Volume 89.8 fL (80-100); Mean Platelet Volume 10.2 fL (7.4-10.4); Platelet Count 260 K/uL (130-400); RDW Coefficient of Variation 13.4 % (11.5-14.5); RDW Standard Deviation 43.9 fL (36.4-46.3); Red Blood Count 4.62 M/uL (4.2-5.4); White Blood Count 7.02 K/uL (4.8-10.8)
[2018-05-27 06:36] LABS: INR 3.2 (0.9-1.1); Prothrombin Time 30.6 Seconds (9.0-12.0)
[2018-05-27 06:45] LABS: BUN Creatinine Ratio 44.9 (10-20); Calcium 8.1 mg/dl (8.5-10.1); Creatinine Clr Calc Pharmacy 44.3 ml/min; Est GFR (African American) 62.3; Est GFR (Non-African American) 53.7; Potassium 3.1 mmol/L (3.5-5.1)
[2018-05-27] MEDS: cefUROXime axetil 500 MG TAB PO SCH (08:02)
[2018-05-27] MEDS: MONTELUKAST SODIUM 10 MG TABLET PO SCH (08:03)
[2018-05-27] MEDS: POTASSIUM CHLORIDE 10 MEQ TABCR PO SCH (08:03)
[2018-05-27] MEDS: ESCITALOPRAM OXALATE 10 MG TAB PO SCH (08:03)
[2018-05-27] MEDS: CALCIUM 600MG + VIT D 400 IU TAB PO SCH (08:03)
[2018-05-27] MEDS: FUROSEMIDE 40 MG TAB PO SCH (08:03)
[2018-05-27] MEDS: FLUTICASONE HFA 110MCG INHALER INH SCH (08:04)
[2018-05-27] MEDS: MULTIVITAMIN TAB PO SCH (08:04)
[2018-05-27] MEDS: SPIRONOLACTONE 25 MG TAB PO SCH (08:05)
[2018-05-27] MEDS: LISINOPRIL 20 MG TAB PO SCH (08:05)
[2018-05-27] MEDS: PANTOprazole 40 MG TAB PO SCH (08:05)
[2018-05-27] MEDS: METOPROLOL SUCC 50MG EXT REL TAB PO SCH (08:09)
[2018-05-27] MEDS ORDERED: AZITHROMYCIN 250 MG TAB PO SCH (09:00)
--- NOTE | 2018-05-27 10:06 | Discharge Summary ---
Date of Service May 27, 2018 Principal Diagnosis Respiratory syncytial virus Hypoxemic Resp Failure Hypothyroidism Hyperlipidemia, unspecified Hypokalemia (05/23/18) Essential (primary) hypertension Paroxysmal atrial fibrillation Chronic atrial fibrillation Unspecified diastolic (congestive) heart failure (05/23/18) Moderate persistent asthma with (acute) exacerbation (05/23/18) Chronic kidney disease, stage 3 Discharge Exam ROS-No Headache, No Visual Changes, No Fever, No Chills, No Neck Pain or Stiffness, No Chest Pain, No Palpitations, less SOB, less MULLER, + yellow sputum, positive wheezing, improved from yesterday, No Abdominal Pain, No Diarrhea, No Hematemesis, No Hemoptysis, No Unexpected Weight Loss, No Flank pain, No Melena , No Hematochezia, No Frequency, No Urgency, No Burning, No Hematuria, No Rashes , No Diaphoresis. Appetite is Normal, positive dependent edema Physical Exam Gen-AAO x 3, NAD, Afebrile, obese Head-NCAT, EOMI, PERRLA, Anicteric Sclera, No Posterior Pharyngeal Erythema Neck-Supple, No JVD, No Thyromegaly, No Masses, No LAD, No Bruits Lungs-much less wheezing, no Crepitus, lungs sound great today Chest-No S4, +S1, +S2, No S3, No Murmurs, No Rubs, No Gallops, No Ectopy Abdomen-Soft, Bowel Sounds Present, Non Tender, Non Distended, No Hepatomegaly, No Splenomegaly, No Palpable Masses, No Rebound, No Rigidity, No Guarding Musculoskeletal-Full Range of Motion Bilaterally, No CVAT Extremities-No Cyanosis, No Clubbing, No Edema Nuero-Cranial Nerves II-XII grossly intact, Motor WNL, DTRs WNL, Strength WNL, No Focal Psych-Normal Mood Discharge Data Allergies Allergy/AdvReac Type Severity Reaction Status Date / Time epinephrine AdvReac Severe SEVERE Verified 02/04/17 07:09 TACHYCARDIA Beta-Blockers AdvReac Intermediate CHF Verified 02/04/17 07:09 (Beta-Adrenergic Bloc sotalol AdvReac Intermediate CHF Verified 02/04/17 07:09 Consultations 05/21/18 17:43 ED Decision to Admit Stat 05/21/18 20:28 Consult Case Management - Discharge Planning Routine 05/25/18 10:21 Consult Pulmonology Routine Ordered Studies 05/25/18 10:22 CT chest wo con Routine Current Diagnoses Respiratory syncytial virus as the cause of diseases classified elsewhere (05/23) Hypothyroidism, unspecified (05/23/18) Hyperlipidemia, unspecified (05/23/18) Hypokalemia (05/23/18) Essential (primary) hypertension (05/23/18) Paroxysmal atrial fibrillation (05/23/18) Chronic atrial fibrillation (05/23/18) Unspecified diastolic (congestive) heart failure (05/23/18) Moderate persistent asthma with (acute) exacerbation (05/23/18) Chronic kidney disease, stage 3 (moderate) (05/23/18) Shortness of breath (05/23/18) Allergies epinephrine Adverse Reaction (Severe, Verified 02/04/17 07:09) SEVERE TACHYCARDIA Beta-Blockers (Beta-Adrenergic Bloc Adverse Reaction (Intermediate, Verified 07:09) CHF sotalol Adverse Reaction (Intermediate, Verified 02/04/17 07:09) CHF Height/Weight/Isolation Height 5 ft 1 in Weight 86.8 kg Isolation Type Droplet Precautions Chemistry 05/26/18 05/27/18 05:20 05:35 Sodium 139 142 Potassium 3.7 3.1 L D Chloride 102 101 Carbon Dioxide 35 H 32 Anion Gap 2.0 L 9.0 BUN 43 H 44 H Creatinine 0.99 0.98 Glucose 129 H 99 Microbiology 05/25/18 07:45 Sputum, Expectorated Gram Stain - Final 05/25/18 07:45 Sputum, Expectorated Sputum Culture - Final Heavy normal nida. Hospital Course (1) Acute asthma exacerbation: Breathing much better -DC on steroid taper -Inhalers as an outpatient -On Ceftin and Zithromax (pulmonary recommend Zithromax 3 times a week for 2 weeks -Incentive spirometry, mucolytics, flutter valve -continue advair as prescribed -Oxygen as needed -Follow-up with pulmonary Dr. Randolph and Dr. Anglin (2) RSV (respiratory syncytial virus infection): Resolved (3) Atrial fibrillation: -continue metoprolol succinate was changed to 100 twice daily yesterday, rate and blood pressure look good -INR subtherapeutic on admission secondary to patient not taking warfarin due to not feeling well -INR 3.2 -INR to be monitored outpatient with home health (4) CHF (congestive heart failure): -CXR consistent with pulmonary vascular congestion -Lasix 40 mg every morning -aldactone, lisinopril, metoprolol (5) Hypokalemia: -Potassium normal currently -continue daily KCL 10meq -monitor bmp and replete as necessary (6) Hypothyroidism: -continue levothyroxine (7) HTN (hypertension): -blood pressure normal today, lisinopril increased to every 12, metoprolol dose doubled yesterday, blood pressure came down nicely -Lasix 40 mg p.o. daily -Stop hydralazine -continue oral outpatient meds including lisinopril, aldactone, metoprolol, lasix on discharge (8) Dyslipidemia: -continue statin (9) CKD (chronic kidney disease), stage III: -Bun/Cr stable -monitor daily labs (10) DVT prophylaxis: -INR 3.2 -Warfarin 3 mg daily, monitor outpatient may peak with antibiotics -INR to be monitored by home health Disposition: DC home today after rest/walk pulse ox Follow up: PCP Dr. El, Dr. Anglin, Dr. Randolph upon discharge DC today Total Time Total Time Spent Total Time Spent (In Minutes): 45 minutes Total Time Includes: Examination of the Patient, Discharge Planning, Medication Reconciliation and Communication With Other Providers Discharge Plan Discharge Items Patient Disposition: Home - Home Health Services Reason For Visit: SOB Discharge Diagnosis: Respiratory syncytial virus Hypoxemic Resp Failure Hypothyroidism Hyperlipidemia, unspecified Hypokalemia (05/23/18) Essential (primary) hypertension Paroxysmal atrial fibrillation Chronic atrial fibrillation Unspecified diastolic (congestive) heart failure (05/23/18) Moderate persistent asthma with (acute) exacerbation (05/23/18) Chronic kidney disease, stage 3 Condition: Good Discharge Goals: Improve function Activity: Resume your previous activity Lifting: Gradually increase as tolerated Bathing: No limitations Sexual Activity: When tolerated Exercise/Sports: Gradually increase as tolerated Driving/Machine Use: No limitations Weightbearing: Left weightbearing and Right weightbearing Non-emergency contact: Primary Care Provider, Offline Editor and Spanish Professor Call non-emergency contact if: your symptoms worsen Diet: Heart Healthy Addtl Provider Instructions: Monitor respiratory status, follow-up for symptom resolution with cardiology and pulmonary. Please monitor INR while she is on antibiotic for the next 2 weeks. Can likely resume home warfarin doses after 2 weeks. Prescriptions: New azithromycin [Zithromax] 250 mg Tablet 500 mg PO MoWeFr@0900 Qty: 6 RF: 0 metoprolol succinate 50 mg Tablet Extended Release 24 Hr 100 mg PO BID Qty: 60 RF: 0 dextromethorphan-guaifenesin 10-100 mg/5 mL Syrup 5 ml PO Q6H PRN (Reason: cough) Qty: 250 RF: 0 pantoprazole 40 mg Tablet,Delayed Release (Dr/Ec) 40 mg PO BID Qty: 60 RF: 0 cefuroxime axetil 500 mg Tablet 500 mg PO Q12 Qty: 14 RF: 0 doxazosin 2 mg Tablet 2 mg PO HS Qty: 30 RF: 0 warfarin [Coumadin] 2 mg Tablet 3 mg PO MoWeFr@1600 Qty: 30 RF: 0 prednisone 10 mg tablet 10 mg PO DAILY Qty: 21 RF: 0 Continue furosemide [Lasix] 40 mg Tablet 40 mg PO DAILY RF: 0 spironolactone [Aldactone] 25 mg Tablet 25 mg PO DAILY RF: 0 lorazepam 0.5 mg Tablet 0.5 mg PO TID PRN (Reason: Anxiety) RF: 0 levothyroxine 125 mcg tablet 125 mcg PO DAILY RF: 0 montelukast 10 mg Tablet 10 mg PO DAILY RF: 0 albuterol sulfate 90 mcg/actuation Hfa Aerosol Inhaler 2 puff INHALATION Q6H PRN (Reason: SOB) RF: 0 fluticasone [Flovent HFA] 110 mcg/actuation HFA aerosol inhaler 2 inhaler Inhalation BID RF: 0 multivitamin Tablet 1 tab PO DAILY RF: 0 potassium chloride 10 mEq Capsule, Extended Release 10 meq PO DAILY RF: 0 simvastatin 20 mg Tablet 20 mg PO HS RF: 0 lisinopril 10 mg Tablet 10 mg PO DAILY RF: 0 nitroglycerin [Nitrostat] 0.4 mg Tablet, Sublingual 0.4 mg Sublingual UD PRN (Reason: Chest Pain) RF: 0 escitalopram oxalate 10 mg Tablet 10 mg PO DAILY RF: 0 calcium carbonate-vitamin D3 [Calcium 500 + D (D3)] 500 mg(1,250mg) -125 unit Tablet 1 tab PO TID RF: 0 Discontinued metoprolol succinate 50 mg Tablet Extended Release 24 Hr 50 mg PO BID RF: 0 omeprazole 20 mg Capsule,Delayed Release(Dr/Ec) 20 mg PO DAILY RF: 0 warfarin 4 mg tablet 4 mg PO SUTUTHSA RF: 0 warfarin 4 mg Tablet 2 mg PO MOWEFR RF: 0 Stand-Alone Forms: [facility] Discharge Orders: Discharge Order (Routine); Ordered 05/27/18 Ordered By: Lukas Russo Admission Data Admit Date/Time: 05/23/18 14:56 Attending Provider: Lukas Russo Admit Provider: Lukas Russo Primary Care Provider: Jovany El Other Providers: Lisa Oglesby ; Lukas Russo ; Erika Randolph Service: Medical
== END 2018-05-27 13:30 | disposition home health service (06) | DRG 202 ==
LOC: ED 16:09 → 2E 16:09 → SUATTDRO 18:11 → 2E 19:28 → 2W 05-26 13:07

== ENCOUNTER 2019-12-15 01:16 | Observation (INO) ==
--- NOTE | 2019-12-15 01:58 | Emergency Department Note ---
Impression & Plan Atrial fibrillation with rapid ventricular response, Near syncope, Elevated troponin ED Provider Note Name: CLAYTON PIEDRA Age: 84 Sex: F Arrives Via: Walk-In Informant: Patient, Daughter ED Provider: Mahendra Brown MD Chief Complaint: Shortness of breath Impression: Atrial Fibrillation with rapid ventricular response Near Syncope Elevated Troponin Medical Decision Makin yr old female with history afib, chf, asthma arrives following 2 episodes t his evening of near syncope with palpitations. She arrives anxious in mild Afib RVR. Given Lopressor x 1 with improvement in HR. EKG with AFib, otherwise no ischemia. She is feeling well without symptoms. Labs with mild elevation of Trop above her baseline. She was given ASA 324mg PO. Will hold off on heparin as no chest pain and currently without any other symptoms and she is on coumadin, though I'll note INR is a bit on the low side. Patient stable and will be brought in to hospitalist service for further management.There is no evidence pneumonia, sepsis, and I feel PE unlikely. I suspect she had run of afib RVR much faster at home that set off these symptoms, and would have incr eased trop, but can no rule out ACS at this time either. There is no neuro deficits nor headache and without recent injury, currently no indication for neuro imaging. Prior Medical Record and Triage/Nursing Notes reviewed by Me Additional history obtained from daughter and chart Differentials:Vasovagal event, dehydration, infection, hypoglycemia, electrolyte abnormalities, cardiac sources, intracerebral event, pulmonary embolism, seizure, toxicologic, neurologic, as well as other pathologies. Vital Signs: reviewed and remarkable for HTN, Tachy Interventions: saline lock, lopressor 5mg IV Labs:Reviewed and remarkable for elevated troponin Imaging:X ray results are stated below per my interpretation: Chest: 1 view: No infiltrate, no effusion, normal cardiac border. EKG:Per My Interpretation: Indication Near Syncope: Afib RVR 102 bpm, qtc 474. No Ectopy. No Ischemia. Compared to EKG 05/23/18, no significant changes. Cardiac/Tele Monitoring: Cardiac Monitoring: An Order was placed for continuous cardiac monitoring. The monitor shows a rate of 70 with a afib rhythm. Consults:Dr Rosa Macedo Hospitalist Plan: Disposition:Hospitalization. Condition: Good Blood pressure:Elevated - Referred to Hospitalist Prescriptions:None PDMP: n/a History of Present Illness:84 / F with hsitory AFib, CHF, Asthma, amongst others arrives for evaluation of near syncope. Patient was sitting on couch when she developed sudden onset generalized weakness, palpitations, and darkening of vision. Associated with loss of urinary control. Lasted about 10-15 seconds before resolving. During this she got very short of breath and was very tremulous. Started feeling well again and then symptoms reoccurred for another 10-15 seconds. No interventions and states she is feeling back to normal. Denies headache, neck pain, chest pain, fevers, chills, nausea, vomiting, leg swelling (beyond normal), rashes, syncope, nor other symptoms. She denies having similar symptoms. Denies this was like previous asthma issues. No medication changes recently. Nothing made better nor worse. No history of CAD, does take Coumadin daily. Daughter denies any slurred speech, focal weakness nor other stroke like symptoms. ROS: See above HPI for pertinent positives & negatives. A total of 10 systems reviewed and were otherwise negative. Past Medical History:Afib, GERD, HTN, Anxiety, Asthma, Hypothyroid, CHF, DLP Past Surgical History:Hysterectomy, Bladder Surgery Family History:Father RI, Mother RI Social History:Non smoker, occasional etoh, no drugs, lives with son/daughter, Home Medications:See Below Allergies:Sotalol, Epinephrine Vitals:Blood Pressure: 174/90, Pulse 110, RR 28, T 36.7C, O2 96% on RA Physical Exam: GENERAL: Patient is anxious appearing and in mild distress. EYES: No scleral icterus, unremarkable pupils. ENT: Mucous membranes moist, no nasal congestion. NECK: No masses appreciated, nomeningismus, trachea is midline. RESPIRATORY: No dyspnea. Crackles decrease bilateral lower lung manzanares. No wheeze, no rhonchi. CARDIOVASCULAR: Tachy, irregular.No murmurs, rubs, gallops appreciated. GASTROINTESTINAL: Abdomen soft, non-tender, no peritonitis.Bowel sounds positive.No masses appreciated. BACK: No midline tenderness, no CVA tenderness EXTREMITIES: Normal motion all extremities, no cyanosis, no edema. NEUROLOGIC: Alert and oriented, no acute motor or sensory deficits, no focal weakness, cranial nerves grossly intact. SKIN: No rash, no jaundice, no diaphoresis. PSYCH: Appropriate GCS: 15 ED Course: Times/Reassessments: Feeling better post lopressor and HR much improved. Mahendra Brown MD Past Med/Surg History Social History Smoking Status: Never smoker Hx Alcohol Use: Yes Alcohol type: beer, wine and hard liquor Hx Substance Use: No Preferred Language: Canadian Communication Ability: Effective Cash Person Required: No Beliefs That Will Affect Care: Jewish Jewish Beliefs: Episcopalian marital status: Current Living Situation: Family Current Living Situation Comment: Lives with son Hasmukh. Other Information That Helps Us Care for You: No Feels Safe at Home: Yes Safety Concerns: Feels Safe At This Time Allergies Allergies Allergy/AdvReac Type Severity Reaction Status Date / Time epinephrine AdvReac Severe SEVERE Verified 12/15/19 02:50 TACHYCARDIA Beta-Blockers AdvReac Intermediate CHF Verified 12/15/19 02:50 (Beta-Adrenergic Bloc sotalol AdvReac Intermediate CHF Verified 12/15/19 02:50 Home Meds Home Medications Medication Instructions Recorded Confirmed albuterol sulfate 2 puff INHALATION Q6H PRN 05/21/18 12/15/19 escitalopram oxalate 10 mg PO DAILY 05/21/18 12/15/19 fluticasone propionate 2 inhaler INHALATION BID 05/21/18 12/15/19 furosemide [Lasix] See Rx Instructions .ROUTE .COMPLEX 05/21/18 12/15/19 levothyroxine 125 mcg PO DAILY 05/21/18 12/15/19 lisinopril 10 mg PO DAILY 05/21/18 12/15/19 lorazepam 0.5 mg PO TID PRN 05/21/18 12/15/19 montelukast 10 mg PO DAILY 05/21/18 12/15/19 multivitamin 1 tab PO DAILY 05/21/18 12/15/19 nitroglycerin [Nitrostat] 0.4 mg SUBLINGUAL UD PRN 05/21/18 12/15/19 potassium chloride See Rx Instructions .ROUTE .COMPLEX 05/21/18 12/15/19 simvastatin 20 mg PO HS 05/21/18 12/15/19 spironolactone [Aldactone] 25 mg PO DAILY 05/21/18 12/15/19 calcium carbonate-vitamin D3 1 tab PO TIDM 12/15/19 12/15/19 cholecalciferol (vitamin D3) See Rx Instructions .ROUTE .COMPLEX 12/15/19 12/15/19 [Vitamin D3] meclizine 12.5 mg PO TID PRN 12/15/19 12/15/19 metoprolol succinate 50 mg PO BID 12/15/19 12/15/19 omeprazole 20 mg PO DAILY 12/15/19 12/15/19 warfarin 4 mg PO DAILY 12/15/19 12/15/19 Results & Data (ED) Vital Signs Vital Signs - 24 hr 12/15/19 01:20 12/15/19 01:40 12/15/19 02:03 Temperature 36.7 C Temperature Source Oral Pulse Rate 110 H Pulse Rate [Right Brachial] 90 Pulse Rate from SpO2 Sensor Pulse Rhythm [Right Brachial] Irregular Respiratory Rate 28 H 18 Respiratory Effort / Characteristics Labored Non-Labored Respiratory Depth Normal Respiratory Pattern Regular Blood Pressure 174/90 H Blood Pressure [Right Arm] 181/102 H Blood Pressure Mean 118 Blood Pressure Mean [Right Arm] 128 Pulse Oximetry 96 96 97 Oxygen Delivery Method Room Air Room Air Room Air Sepsis New/Unexplained Change in Mental Status N/A Sepsis Action Taken by Nursing No Action Required 12/15/19 02:10 12/15/19 02:20 12/15/19 02:23 Temperature Temperature Source Pulse Rate 86 87 92 H Pulse Rate [Right Brachial] Pulse Rate from SpO2 Sensor 88 90 Pulse Rhythm [Right Brachial] Respiratory Rate 21 21 Respiratory Effort / Characteristics Respiratory Depth Respiratory Pattern Blood Pressure 181/102 H Blood Pressure [Right Arm] Blood Pressure Mean Blood Pressure Mean [Right Arm] Pulse Oximetry 98 97 Oxygen Delivery Method Sepsis New/Unexplained Change in Mental Status Sepsis Action Taken by Nursing 12/15/19 02:30 12/15/19 02:40 12/15/19 02:50 Temperature Temperature Source Pulse Rate 77 76 82 Pulse Rate [Right Brachial] Pulse Rate from SpO2 Sensor 78 77 82 Pulse Rhythm [Right Brachial] Respiratory Rate 27 H 14 21 Respiratory Effort / Characteristics Respiratory Depth Respiratory Pattern Blood Pressure Blood Pressure [Right Arm] Blood Pressure Mean Blood Pressure Mean [Right Arm] Pulse Oximetry 90 97 96 Oxygen Delivery Method Sepsis New/Unexplained Change in Mental Status Sepsis Action Taken by Nursing 12/15/19 03:00 12/15/19 03:01 12/15/19 03:10 Temperature Temperature Source Pulse Rate 79 79 84 Pulse Rate [Right Brachial] Pulse Rate from SpO2 Sensor 80 79 80 Pulse Rhythm [Right Brachial] Respiratory Rate 21 19 26 H Respiratory Effort / Characteristics Respiratory Depth Respiratory Pattern Blood Pressure 179/87 H Blood Pressure [Right Arm] Blood Pressure Mean 119 Blood Pressure Mean [Right Arm] Pulse Oximetry 97 96 98 Oxygen Delivery Method Sepsis New/Unexplained Change in Mental Status Sepsis Action Taken by Nursing 12/15/19 03:20 Temperature Temperature Source Pulse Rate 87 Pulse Rate [Right Brachial] Pulse Rate from SpO2 Sensor Pulse Rhythm [Right Brachial] Respiratory Rate 23 Respiratory Effort / Characteristics Respiratory Depth Respiratory Pattern Blood Pressure Blood Pressure [Right Arm] Blood Pressure Mean Blood Pressure Mean [Right Arm] Pulse Oximetry Oxygen Delivery Method Sepsis New/Unexplained Change in Mental Status Sepsis Action Taken by Nursing Laboratory Data Result diagrams: 12/15/19 02:01 12/15/19 02:01 Lab Results 12/15/19 12/15/19 12/15/19 Range/Units 02:01 02:01 02:01 WBC 7.22 (4.8-10.8) K/uL RBC 4.55 (4.2-5.4) M/uL Hgb 13.2 (12.0-16.0) g/dL Hct 40.2 (37-47) % MCV 88.4 (80-100) fL MCH 29.0 (25-34) pg MCHC 32.8 (32-36) g/dL RDW Std Deviation 45.9 (36.4-46.3) fL RDW Coeff of [place] 14.2 (11.5-14.5) % Plt Count 272 (130-400) K/uL MPV 9.8 (7.4-10.4) fL Immature Gran % (Auto) 0.4 % Neut % (Auto) 75.1 % Lymph % (Auto) 12.3 % [place] % (Auto) 10.1 % Eos % (Auto) 1.8 % Baso % (Auto) 0.3 % Neut # (Auto) 5.42 (1.4-6.5) K/uL Lymph # (Auto) 0.89 L (1.2-3.4) K/uL [place] # (Auto) 0.73 H (0.11-0.59) K/uL Eos # (Auto) 0.13 (0-0.5) K/uL Baso # (Auto) 0.02 (0-0.2) K/uL Immature Gran # (Auto) 0.03 H (0.00-0.02) K/uL PT 15.5 H (9.0-12.0) Seconds INR 1.5 H (0.9-1.1) APTT (21.0-31.0) Seconds PTT Ratio Sodium 144 (136-145) mmol/L Potassium 3.6 (3.5-5.1) mmol/L Chloride 109 H (98-107) mmol/L Carbon Dioxide 28 (21-32) mmol/L Anion Gap 7.0 (3-11) BUN 17 (7-18) mg/dl Creatinine 0.94 (0.6-1.2) mg/dl Est Cr Clr Drug Dosing 46.9 ml/min Est GFR ( Amer) 64.6 Est GFR (Non-Af Amer) 55.7 BUN/Creatinine Ratio 18.3 (10-20) Glucose 111 H (70-99) mg/dl Estimat Average Glucose mg/dl Hemoglobin A1c (4.5-5.6) % Calcium 8.8 (8.5-10.1) mg/dl Magnesium 2.0 (1.8-2.4) mg/dl Troponin I 0.077 H* (0-0.045) ng/ml NT-Pro-B Natriuret Pep 930 (0-1800) pg/ml TSH 20.500 H (0.300-4.500) uIu/ml Free T4 1.02 (0.8-1.6) ng/dl 12/15/19 12/15/19 Range/Units 02:01 02:01 WBC (4.8-10.8) K/uL RBC (4.2-5.4) M/uL Hgb (12.0-16.0) g/dL Hct (37-47) % MCV (80-100) fL MCH (25-34) pg MCHC (32-36) g/dL RDW Std Deviation (36.4-46.3) fL RDW Coeff of [place] (11.5-14.5) % Plt Count (130-400) K/uL MPV (7.4-10.4) fL Immature Gran % (Auto) % Neut % (Auto) % Lymph % (Auto) % [place] % (Auto) % Eos % (Auto) % Baso % (Auto) % Neut # (Auto) (1.4-6.5) K/uL Lymph # (Auto) (1.2-3.4) K/uL [place] # (Auto) (0.11-0.59) K/uL Eos # (Auto) (0-0.5) K/uL Baso # (Auto) (0-0.2) K/uL Immature Gran # (Auto) (0.00-0.02) K/uL PT (9.0-12.0) Seconds INR (0.9-1.1) APTT 33.8 H (21.0-31.0) Seconds PTT Ratio 1.2 Sodium (136-145) mmol/L Potassium (3.5-5.1) mmol/L Chloride (98-107) mmol/L Carbon Dioxide (21-32) mmol/L Anion Gap (3-11) BUN (7-18) mg/dl Creatinine (0.6-1.2) mg/dl Est Cr Clr Drug Dosing ml/min Est GFR ( Amer) Est GFR (Non-Af Amer) BUN/Creatinine Ratio (10-20) Glucose (70-99) mg/dl Estimat Average Glucose 108 mg/dl Hemoglobin A1c 5.4 (4.5-5.6) % Calcium (8.5-10.1) mg/dl Magnesium (1.8-2.4) mg/dl Troponin I (0-0.045) ng/ml NT-Pro-B Natriuret Pep (0-1800) pg/ml TSH (0.300-4.500) uIu/ml Free T4 (0.8-1.6) ng/dl Administered Medications Lactated Ringer's (Lr) 1,000 mls @ 40 mls/hr IV .Q24H ONE Stop: 12/16/19 05:24 Last Admin: 12/15/19 06:31 Dose: 40 mls/hr Documented by: [id number] Piperacillin Sod/Tazobactam (Sod 4.5 gm/ Dextrose) 120 mls @ 240 mls/hr IV ONE ONE Stop: 12/15/19 06:44 Last Admin: 12/15/19 06:31 Dose: 240 mls/hr Documented by: [id number] Levothyroxine Sodium (Levothyroxine Sodium) 137 mcg PO DAILYBB MATILDE Stop: 01/14/20 06:29 Last Admin: 12/15/19 06:32 Dose: 137 mcg Documented by: [id number] Metoprolol Succinate (Toprol Xl) 25 mg PO BID MATILDE Stop: 01/14/20 05:59 Last Admin: 12/15/19 06:32 Dose: 25 mg Documented by: [id number] Discontinued Medications Aspirin (Aspirin Chew) 324 mg PO NOW STA Stop: 12/15/19 02:42 Last Admin: 12/15/19 03:24 Dose: 324 mg Documented by: [id number] Lisinopril (Zestril) 10 mg PO NOW STA Stop: 12/15/19 02:58 Last Admin: 12/15/19 03:23 Dose: Not Given Documented by: [id number] Metoprolol Tartrate (Lopressor) 5 mg IV NOW STA Stop: 12/15/19 02:02 Last Admin: 12/15/19 02:23 Dose: 5 mg Documented by: [id number] Potassium Chloride (Klor-Con Pwd) 40 meq PO NOW STA Stop: 12/15/19 02:53 Last Admin: 12/15/19 03:24 Dose: 40 meq Documented by: [id number] Warfarin Sodium (Coumadin) 5 mg PO NOW STA Stop: 12/15/19 03:25 Last Admin: 12/15/19 03:33 Dose: 5 mg Documented by: [id number] Discharge Plan Visit Data *Final* Discharge Date/Time: 12/15/19 05:44 Chief Complaint: Respiratory Problems Stated Complaint: HAVING TROUBLE BREATHING,FOGGY VISION,SHAKY ED Provider: Mahendra Brown Discharge Problem: Atrial fibrillation with rapid ventricular response, Near syncope, Elevated troponin Patient Disposition: Admitted As Inpatient Discharge Instructions Interventions: ED Discharge Assessment Last Done: 12/15/19 05:44
[2019-12-15] MEDS ORDERED: METOPROLOL TARTRATE 1 MG/ML VIAL IV STA (02:01)
[2019-12-15 02:08] LABS: Basophils # (auto) 0.02 K/uL (0-0.2); Basophils % (auto) 0.3 %; Eosinophils # (auto) 0.13 K/uL (0-0.5); Eosinophils % (auto) 1.8 %; Hematocrit (blood only) 40.2 % (37-47); Hemoglobin 13.2 g/dL (12.0-16.0); Immature Granulocytes # (auto) 0.03 K/uL (0.00-0.02); Immature Granulocytes % (auto) 0.4 %; Lymphocytes # (auto) 0.89 K/uL (1.2-3.4); Lymphocytes % (auto) 12.3 %; Mean Corpuscular Hgb Conc 32.8 g/dL (32-36); Mean Corpuscular Volume 88.4 fL (80-100); Mean Platelet Volume 9.8 fL (7.4-10.4); Monocytes # (auto) 0.73 K/uL (0.11-0.59); Monocytes % (auto) 10.1 %; Neutrophils # (auto) 5.42 K/uL (1.4-6.5); Neutrophils % (auto) 75.1 %; Platelet Count 272 K/uL (130-400); RDW Coefficient of Variation 14.2 % (11.5-14.5); RDW Standard Deviation 45.9 fL (36.4-46.3); Red Blood Count 4.55 M/uL (4.2-5.4); White Blood Count 7.22 K/uL (4.8-10.8)
[2019-12-15 02:18] LABS: INR 1.5 (0.9-1.1); Prothrombin Time 15.5 Seconds (9.0-12.0)
[2019-12-15 02:25] LABS: BUN Creatinine Ratio 18.3 (10-20); Calcium 8.8 mg/dl (8.5-10.1); Creatinine Clr Calc Pharmacy 46.9 ml/min; Est GFR (African American) 64.6; Est GFR (Non-African American) 55.7; Potassium 3.6 mmol/L (3.5-5.1)
[2019-12-15 02:35] LABS: Troponin I 0.077 ng/ml (0-0.045)
[2019-12-15] MEDS ORDERED: ASPIRIN 81 MG CHEW PO STA (02:41)
[2019-12-15] MEDS ORDERED: POTASSIUM CHLORIDE PWD 20 MEQ PACK PO STA (02:52)
[2019-12-15] MEDS ORDERED: lisinopriL 10 MG TAB PO STA (02:57)
[2019-12-15] MEDS ORDERED: WARFARIN SOD 5 MG TAB PO STA (03:24)
--- NOTE | 2019-12-15 03:24 | History & Physical Report ---
Date of Service December 15, 2019 Assessment & Plan (1) Blurred vision, bilateral: Possible TIA hx A. 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 hypothyroidism, TSH markedly elevated Hyperglycemia rule out DM Complicated UTI, no sepsis asthma, not in acute exacerbation OBS Medical telemetry Neurochecks CT head RE transient blurred vision MRI/MRA brain if CT head negative for stroke Neurology consult RE transient blurred vision Additional work-up pending imaging results and neurology evaluation Permissive hypertension for now Trend troponin, TTE if with progression Increase daily levothyroxine dose from 125 to 137 mcg daily, recheck TSH next month Follow urine cultures, IV Zosyn for now (hx Enterococcus on review of microbiologic history) Check hemoglobin A1c DVT prophylaxis. Coumadin INR goal between 2 and 3 Full code Text document was generated using E[employer] voice recognition software. It may contain grammatical or spelling errors. Kindly contact undersigned for clarification of any documentation item in question. History of Present Illness Chief Complaint: Transient blurred vision bilateral Primary Care Provider: Jovany El MD History obtained from patient and records. Medical history significant for A. fib on Coumadin, mitral regurgitation as per records, hypertension, hyperlipidemia, NAFLD cirrhosis, hypothyroidism, asthma, essential tremor as per records. Last confinement May 2018 for asthma exacerbation. Patient was watching television last night when she noted transient darkening of her vision on both eyes for about 10 seconds. No headache, arm/ leg weakness, slurred speech. No chest pain. Transient shortness of breath which patient attributed to possible anxiety. Transient bladder discomfort without abdominal pain w/ chills. Patient compliant with home meds. No unusual stress at home. Patient brought to ER for evaluation. SBP initially 180s, cardiac rate 110s upon arrival at the ER. Patient given IV Lopressor. Aspirin given for troponin elevation. 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 Allergies Allergy/AdvReac Type Severity Reaction Status Date / Time epinephrine AdvReac Severe SEVERE Verified 12/15/19 02:50 TACHYCARDIA Beta-Blockers AdvReac Intermediate CHF Verified 12/15/19 02:50 (Beta-Adrenergic Bloc sotalol AdvReac Intermediate CHF Verified 12/15/19 02:50 Home Medications Home Medications Medication Instructions Recorded Confirmed Type albuterol sulfate 2 puff INHALATION Q6H PRN 05/21/18 12/15/19 History escitalopram oxalate 10 mg PO DAILY 05/21/18 12/15/19 History fluticasone propionate 2 inhaler INHALATION BID 05/21/18 12/15/19 History furosemide [Lasix] See Rx Instructions .ROUTE .COMPLEX 05/21/18 12/15/19 History levothyroxine 125 mcg PO DAILY 05/21/18 12/15/19 History lisinopril 10 mg PO DAILY 05/21/18 12/15/19 History lorazepam 0.5 mg PO TID PRN 05/21/18 12/15/19 History montelukast 10 mg PO DAILY 05/21/18 12/15/19 History multivitamin 1 tab PO DAILY 05/21/18 12/15/19 History nitroglycerin [Nitrostat] 0.4 mg SUBLINGUAL UD PRN 05/21/18 12/15/19 History potassium chloride See Rx Instructions .ROUTE .COMPLEX 05/21/18 12/15/19 History simvastatin 20 mg PO HS 05/21/18 12/15/19 History spironolactone [Aldactone] 25 mg PO DAILY 05/21/18 12/15/19 History calcium carbonate-vitamin D3 1 tab PO TIDM 12/15/19 12/15/19 History cholecalciferol (vitamin D3) See Rx Instructions .ROUTE .COMPLEX 12/15/19 12/15/19 History [Vitamin D3] meclizine 12.5 mg PO TID PRN 12/15/19 12/15/19 History metoprolol succinate 50 mg PO BID 12/15/19 12/15/19 History omeprazole 20 mg PO DAILY 12/15/19 12/15/19 History warfarin 4 mg PO DAILY 12/15/19 12/15/19 History Past Med/Surg History Social History Smoking Status: Never smoker Hx Alcohol Use: Yes Alcohol type: beer, wine and hard liquor Hx Substance Use: No Preferred Language: Macedonian Communication Ability: Effective 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 Other Information That Helps Us Care for You: No Feels Safe at Home: Yes Safety Concerns: Feels Safe At This Time Review of Systems Review of Systems: As per HPI, all 10 systems reviewed, all other ROS negative Physical Exam Physical Exam: GENERAL: Comfortable, pleasant, morbidly obese, looks younger than stated age, no respiratory distress SKIN: Normal color, warm HEENT: Kelly palpebral conjunctivae, no ptosis, dry buccal mucosa NECK : Supple, short neck, no tenderness CHEST : CTA, no tenderness HEART : Irregular, systolic murmur ABDOMEN: Some distention, nontender EXTREMITIES : Minimal LE swelling, no LE tenderness, no other conspicuous deformities noted NEUROLOGIC : Coherent, no facial asymmetry, intention tremors, gait and stance not assessed Results & Data Results & Data ([facility]) Vital Signs (Past 12 Hours) Vital Signs Temp Pulse Pulse Resp BP BP Pulse Ox 12/15/19 02:23 92 H 181/102 H 12/15/19 02:03 90 18 181/102 H 97 12/15/19 01:40 96 12/15/19 01:20 36.7 C 110 H 28 H 174/90 H 96 Laboratory Results Laboratory Results WBC 7.22 K/uL (4.8-10.8) 12/15/19 02:01 RBC 4.55 M/uL (4.2-5.4) 12/15/19 02:01 Hgb 13.2 g/dL (12.0-16.0) 12/15/19 02:01 Hct 40.2 % (37-47) 12/15/19 02:01 MCV 88.4 fL (80-100) 12/15/19 02:01 MCH 29.0 pg (25-34) 12/15/19 02:01 MCHC 32.8 g/dL (32-36) 12/15/19 02:01 RDW Std Deviation 45.9 fL (36.4-46.3) 12/15/19 02:01 RDW Coeff of [place]ío 14.2 % (11.5-14.5) 12/15/19 02:01 Plt Count 272 K/uL (130-400) 12/15/19 02:01 MPV 9.8 fL (7.4-10.4) 12/15/19 02:01 Immature Gran % (Auto) 0.4 % 12/15/19 02:01 Neut % (Auto) 75.1 % 12/15/19 02:01 Lymph % (Auto) 12.3 % 12/15/19 02:01 [place] % (Auto) 10.1 % 12/15/19 02:01 Eos % (Auto) 1.8 % 12/15/19 02:01 Baso % (Auto) 0.3 % 12/15/19 02:01 Neut # (Auto) 5.42 K/uL (1.4-6.5) 12/15/19 02:01 Lymph # (Auto) 0.89 K/uL (1.2-3.4) L 12/15/19 02:01 [place] # (Auto) 0.73 K/uL (0.11-0.59) H 12/15/19 02:01 Eos # (Auto) 0.13 K/uL (0-0.5) 12/15/19 02:01 Baso # (Auto) 0.02 K/uL (0-0.2) 12/15/19 02:01 Immature Gran # (Auto) 0.03 K/uL (0.00-0.02) H 12/15/19 02:01 PT 15.5 Seconds (9.0-12.0) H 12/15/19 02:01 INR 1.5 (0.9-1.1) H 12/15/19 02:01 Sodium 144 mmol/L (136-145) 12/15/19 02:01 Potassium 3.6 mmol/L (3.5-5.1) 12/15/19 02:01 Chloride 109 mmol/L (98-107) H 12/15/19 02:01 Carbon Dioxide 28 mmol/L (21-32) 12/15/19 02:01 Anion Gap 7.0 (3-11) 12/15/19 02:01 BUN 17 mg/dl (7-18) 12/15/19 02:01 Creatinine 0.94 mg/dl (0.6-1.2) 12/15/19 02:01 Est Cr Clr Drug Dosing 46.9 ml/min 12/15/19 02:01 Est GFR ( Amer) 64.6 12/15/19 02:01 Est GFR (Non-Af Amer) 55.7 12/15/19 02:01 BUN/Creatinine Ratio 18.3 (-20) 12/15/19 02:01 Glucose 111 mg/dl (70-99) H 12/15/19 02:01 Calcium 8.8 mg/dl (8.5-10.1) 12/15/19 02:01 Magnesium 2.0 mg/dl (1.8-2.4) 12/15/19 02:01 Troponin I 0.077 ng/ml (0-0.045) H* 12/15/19 02:01 NT-Pro-B Natriuret Pep 930 pg/ml (0-1800) 12/15/19 02:01 Diagnostic Findings Chest x-ray as per my interpretation cardiomegaly, atelectasis EKG as per my interpretation : Rate 105, A. fib, normal axis, septal infarct, T wave flattening inferior and septal leads
[2019-12-15 03:40] LABS: Appearance Urine Cloudy (Clear); Bacteria Urine Automated Negative (Negative); Bilirubin Urine Negative (Negative); Blood Urine 1+ (Negative); Color Urine Dark Yellow; Epithelial Cell Urine Auto >30 /lpf (0-5); Glucose Urine UA Negative (Negative); Ketones Urine Trace (Negative); Leukocyte Esterase Urine 2+ (Negative); Nitrite Urine Negative (Negative); Protein Urine Trace (Negative); Specific Gravity Urine 1.026 (1.000-1.030); Urobilinogen Urine Negative (Negative); WBC Urine Automated >30 /hpf (0-5)
[2019-12-15 03:40] LABS: Partial Thromboplastin Ratio 1.2; Partial Thromboplastin Time 33.8 Seconds (21.0-31.0)
[2019-12-15 03:53] LABS: Thyroid Stimulating Hormone 20.5 uIu/ml (0.300-4.500)
[2019-12-15 04:07] LABS: T4 Free Thyroxine 1.02 ng/dl (0.8-1.6)
[2019-12-15] MEDS ORDERED: LORazepam 0.25 MG/0.5 ML VIAL IV PRN (05:25)
[2019-12-15] MEDS ORDERED: TRAMADOL HCL 50 MG TABLET PO PRN (05:25)
[2019-12-15] MEDS ORDERED: LACTATED RINGER'S 1,000 ML IV ONE (05:25)
[2019-12-15] MEDS ORDERED: PROMETHAZINE HCL 12.5 MG in SODIUM CHLORIDE 0.9% 50 ML IV PRN (05:25)
[2019-12-15 05:45] LABS: Estimated Average Glucose 108 mg/dl; Hemoglobin A1C 5.4 % (4.5-5.6)
[2019-12-15] MEDS ORDERED: PIPERACILL/TAZOBAC CONSULT ACTIVE PRN (06:00)
[2019-12-15] MEDS ORDERED: METOPROLOL SUCC 25MG EXT REL TAB PO SCH ×2 (06:00→09:00)
[2019-12-15] MEDS ORDERED: PIPERACILLIN/TAZOBACTAM 4.5 GM in DEXTROSE 5% 100 ML IV ONE (06:15)
--- NOTE | 2019-12-15 06:27 | XRay Report ---
XR chest 1V portable CLINICAL HISTORY: Shortness of breath dyspnea COMPARISON STUDY: 05/21/2018 FINDINGS: Mild stable cardiomegaly. Fixed hiatal hernia. Slight chronic peribronchial prominence. No focal infiltrate. Considerable degenerative change of the shoulders bilaterally. IMPRESSION: Slight peribronchial prominence. Mild stable cardiomegaly. ACT 112: Negative or not required by law. The above report was generated using voice recognition software. It may contain grammatical, syntax or spelling errors. Electronically signed by: Jovany Hadley M.D. 12/15/2019 6:26 AM
[2019-12-15] MEDS ORDERED: LEVOTHYROXINE SODIUM 137 MCG TABLET PO SCH (06:30)
--- NOTE | 2019-12-15 07:23 | CT Scan Report ---
CT head/brain wo con CT DOSE: 614.27 mGy.cm HISTORY: Mental status change tia TECHNIQUE: Multiaxial CT images of the head were performed without the use of intravenous contrast. A dose lowering technique was utilized adhering to the principles of ALARA. Comparison: None. Findings: The paranasal sinuses and mastoid air cells are clear. The calvarium and skull base are int act. The ventricles and sulci are within normal limits. There is no mass, hematoma, midline shift, or acute infarct. Impression: No acute intracranial abnormality. ACT 112: Negative or not required by law. The above report was generated using voice recognition software. It may contain grammatical, syntax or spelling errors. Electronically signed by: Jovany Hadley M.D. 12/15/2019 7:22 AM
[2019-12-15] MEDS ORDERED: MONTELUKAST SODIUM 10 MG TABLET PO SCH (09:00)
[2019-12-15] MEDS ORDERED: ESCITALOPRAM OXALATE 10 MG TAB PO SCH (09:00)
[2019-12-15] MEDS ORDERED: PANTOprazole 40 MG TAB PO SCH (09:00)
[2019-12-15] MEDS ORDERED: FLUTICASONE FUROATE 200MCG 14 PUFFS/INHALER INH SCH (09:00)
[2019-12-15] MEDS ORDERED: MULTIVITAMIN TAB PO SCH (09:00)
--- NOTE | 2019-12-15 10:06 | History and Physical Report ---
DATE OF ADMISSION: 12/15/2019 CHIEF COMPLAINT: Blurry vision. HISTORY OF PRESENT ILLNESS: An 84-year-old woman with a history of paroxysmal atrial fibrillation on Coumadin, mitral valve regurgitation, hypertension, hyperlipidemia, nonalcoholic fatty liver disease, hypothyroidism, asthma, and essential tremor, admitted from the Emergency Department early this morning for complaint of bilateral blurry vision. The patient was watching television last evening when she noted darkening of her vision on both eyes for about 10 seconds. She had no pain or headache. There is no associated arm or leg weakness or slurred speech. She denied any chest pain. She did notice some transient shortness of breath, which she attributed to possible anxiety associated with the incident. She remains compliant with her Coumadin. No new medication changes or increased stressors at home. She was brought to the ER for further evaluation. Upon arrival, systolic blood pressure was initially in the 180s. Her cardiac rate was in the 110s. She was given IV Lopressor and an aspirin for an elevated troponin. She was admitted from the Emergency Department due to concern for possible TIA. Neurology was consulted for further evaluation or recommendations. PAST MEDICAL HISTORY: Includes atrial fibrillation, hypertension, mitral valve regurgitation, hyperlipidemia, nonalcoholic fatty liver disease/cirrhosis, hypothyroidism, asthma, hyperglycemia. ALLERGIES: EPINEPHRINE, BETA BLOCKERS, SOTALOL. HOME MEDICATIONS: Lexapro 10 mg daily, Lasix as needed, Synthroid 125 mcg daily, lisinopril 10 mg daily, Ativan 0.5 mg 3 times as needed, multivitamin, potassium chloride, simvastatin 20 mg daily, Aldactone 25 mg daily, vitamin D and calcium tablet, meclizine 12.5 mg 3 times as needed, Coumadin 4 mg daily. PAST SURGICAL HISTORY: Cholecystectomy, breast reduction, cataract surgery, bladder defect surgery. FAMILY HISTORY: Positive for heart disease. 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 REVIEW OF SYSTEMS: As per history of present illness all 10 review of systems was reviewed and negative otherwise. OBJECTIVE: VITAL SIGNS: 162/98 is her blood pressure, pulse is 74, respiratory rate 18, temperature is 37.0, oxygen saturation is 97% on room air. She appears normally developed, well-nourished. HEENT: Head is normocephalic and atraumatic. EYES: Show normal lids and normal conjunctivae. NECK: Supple. Respiratory rate shows normal effort. HEART: Shows normal pulses. ABDOMEN: Nondistended. SKIN: Shows no rash or lesions. She has a normal mood and normal affect. She appears in no distress. NEUROLOGIC: She is awake, alert and oriented to person, place and time. Her attention is normal. Her knowledge is appropriate. her language, she has no aphasia. No dysarthria. No visual defect on confrontation. The pupils are round and equal and reactive to light. Extraocular muscles are intact. Facial sensation is intact. No facial asymmetry. Intact hearing. Palate is symmetric. Shoulder shrug is intact. Tongue is midline. Gait exam is deferred. No ataxia with [id number] testing. Sensory exam shows intact to light touch. Muscle tone is normal. Muscle exam is 5/5. Reflexes are 2+ at the knees. Paul sign is negative. No ankle clonus. DIAGNOSTIC TESTING AND LABORATORY VALUES: WBC 7.22, hemoglobin is 13.2, platelet count is 272. INR is 1.5. Sodium is 144, potassium 3.6, chloride is 109, carbon dioxide 28, BUN is 17, creatinine is 0.94, glucose is 111, magnesium 2.0, calcium 8.8. Troponin 0.076, which is considered high. TSH was 20.5. Free T4 was 1.02. BNP was 930. Urinalysis showed cloudy appearing urine, trace protein, trace ketones, 1+ blood, 2+, leukocyte esterase, greater than 30 WBCs, 5-10 red cells, greater than 30 epithelial cells. Urine culture is pending. Head CT noncontrast shows no acute intracranial abnormality. There is no mass, hematoma, midline shift, or acute infarct. Chest x-ray shows mild stable cardiomegaly and slight peribronchial prominence. ASSESSMENT AND PLAN: An 84-year-old woman with a history of atrial fibrillation, congestive heart failure on Coumadin with a subtherapeutic INR of 1.5, presenting with near syncope and palpitations. On arrival, she was anxious in mild atrial fibrillation with rapid ventricular response. Her blood pressures were elevated. She was given aspirin. CT head noncontrast showed no acute intracranial abnormality. MRI brain is Negative for acute ishchemic stroke. Recommend to continue Coumadin with INR goal between 2 and 3 for secondary stroke prevention. I do not believe this patient had a TIA, Blood pressure goal systolic blood pressure less than 140 mm Hg, diastolic blood pressure less than 90 mm Hg. Otherwise, Neurology will sign off for now. Please contact with any further questions or concerns. She can follow up with her PCP after discharge. AQUILINO
[2019-12-15] MEDS ORDERED: PIPERACILLIN/TAZOBACTAM 4.5 GM in DEXTROSE 5% 100 ML IV SCH (12:00)
--- NOTE | 2019-12-15 13:16 | Hospitalist Progress Note ---
Date of Service December 15, 2019 Assessment & Plan (1) Blurred vision, bilateral: Possible TIA r/o CVA CT head: Findings: The paranasal sinuses and mastoid air cells are clear. The calvarium and skull base are intact. The ventricles and sulci are within normal limits. There is no mass, hematoma, midline shift, or acute infarct. Impression: No acute intracranial abnormality. Brain MRI: pending Neurologist consulted already on Coumadin, A. 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 Coumadin INR goal between 2 and 3 Full code Disposition anticipate d/c home when medically stable Admission and Anticipated Discharge Date Admission Date: December 15, 2019 Subjective ff up for episode of blurred vision seen resting in bed, comfortable, not in distress in good spirits no recurrence of blurred vision no other focal neuro deficits denies chest pain, dizziness, headache, SOB, palpitations no other symptoms Review of Systems Review of Systems: All systems reviewed & are unremarkable except as noted in HPI & below Physical Exam Physical Exam: General- oriented x 3, not in distress, speaks in sentences with no effort or accessory muscle use Head- atraumatic Eyes- PERRL, EOMI, anicteric ENT- oropharynx clear Neck- supple, no JVD, no adenopathy, no thyromegaly; carotids +2/2, no bruits appreciated Lungs- clear to auscultation bilaterally, no rales/wheezes Heart- normal rate, irregularly irregular rhythm; no murmur, no gallop, no rub appreciated Abdomen- normal bowel sounds, nondistended, soft, nontender, no masses or hepatosplenomegaly Extremities- trace pretibial edema, no calf tenderness; peripheral pulses intact Neuro- alert, oriented x 3; CN 2-12 grossly intact; motor 5/5 bilaterally;sensation 100% on all extremities; no other gross focal neurologic deficits Skin- warm & dry Results & Data Results & Data ([facility]) Vital Signs (Past 12 Hours) Vital Signs Temp Pulse Pulse Resp BP BP Pulse Ox 12/15/19 11:55 37.0 C 88 18 180/84 H 98 12/15/19 11:29 12/15/19 07:35 37.0 C 74 18 162/98 H 97 12/15/19 07:27 83 12/15/19 05:26 37.0 C 85 22 198/105 H 98 12/15/19 04:44 88 24 171/87 H 97 12/15/19 04:30 80 21 12/15/19 04:20 79 23 12/15/19 04:10 84 25 H 12/15/19 04:00 81 23 12/15/19 03:50 82 22 12/15/19 03:40 83 24 12/15/19 03:30 96 H 20 12/15/19 03:20 87 23 12/15/19 03:10 84 26 H 98 12/15/19 03:01 79 19 96 12/15/19 03:00 79 21 179/87 H 97 12/15/19 02:50 82 21 96 12/15/19 02:40 76 14 97 12/15/19 02:30 77 27 H 90 12/15/19 02:23 92 H 181/102 H 12/15/19 02:20 87 21 97 12/15/19 02:10 86 21 98 12/15/19 02:03 90 18 181/102 H 97 12/15/19 01:40 96 12/15/19 01:20 36.7 C 110 H 28 H 174/90 H 96 Pulse Ox 12/15/19 11:55 12/15/19 11:29 97 12/15/19 07:35 12/15/19 07:27 12/15/19 05:26 12/15/19 04:44 12/15/19 04:30 12/15/19 04:20 12/15/19 04:10 12/15/19 04:00 12/15/19 03:50 12/15/19 03:40 12/15/19 03:30 12/15/19 03:20 12/15/19 03:10 12/15/19 03:01 12/15/19 03:00 12/15/19 02:50 12/15/19 02:40 12/15/19 02:30 12/15/19 02:23 12/15/19 02:20 12/15/19 02:10 12/15/19 02:03 12/15/19 01:40 12/15/19 01:20 Laboratory Results Laboratory Results - last 24 hr 12/15/19 12/15/19 12/15/19 02:01 02:01 02:01 WBC 7.22 RBC 4.55 Hgb 13.2 Hct 40.2 MCV 88.4 MCH 29.0 MCHC 32.8 RDW Std Deviation 45.9 RDW Coeff of [place] 14.2 Plt Count 272 MPV 9.8 Immature Gran % (Auto) 0.4 Neut % (Auto) 75.1 Lymph % (Auto) 12.3 [place] % (Auto) 10.1 Eos % (Auto) 1.8 Baso % (Auto) 0.3 Neut # (Auto) 5.42 Lymph # (Auto) 0.89 L [place] # (Auto) 0.73 H Eos # (Auto) 0.13 Baso # (Auto) 0.02 Immature Gran # (Auto) 0.03 H PT 15.5 H INR 1.5 H APTT PTT Ratio Sodium 144 Potassium 3.6 Chloride 109 H Carbon Dioxide 28 Anion Gap 7.0 BUN 17 Creatinine 0.94 Est Cr Clr Drug Dosing 46.9 Est GFR ( Amer) 64.6 Est GFR (Non-Af Amer) 55.7 BUN/Creatinine Ratio 18.3 Glucose 111 H Estimat Average Glucose Hemoglobin A1c Calcium 8.8 Magnesium 2.0 Troponin I 0.077 H* NT-Pro-B Natriuret Pep 930 TSH 20.500 H Free T4 1.02 Urine Color Urine Appearance Urine pH Ur Specific [place] Urine Protein Urine Glucose (UA) Urine Ketones Urine Blood Urine Nitrite Urine Bilirubin Urine Urobilinogen Ur Leukocyte Esterase Urine WBC (Auto) Urine RBC (Auto) U Hyaline Cast (Auto) U Epithel Cells (Auto) Urine Bacteria (Auto) 12/15/19 12/15/19 12/15/19 02:01 02:01 03:30 WBC RBC Hgb Hct MCV MCH MCHC RDW Std Deviation RDW Coeff of [place] Plt Count MPV Immature Gran % (Auto) Neut % (Auto) Lymph % (Auto) [place] % (Auto) Eos % (Auto) Baso % (Auto) Neut # (Auto) Lymph # (Auto) [place] # (Auto) Eos # (Auto) Baso # (Auto) Immature Gran # (Auto) PT INR APTT 33.8 H PTT Ratio 1.2 Sodium Potassium Chloride Carbon Dioxide Anion Gap BUN Creatinine Est Cr Clr Drug Dosing Est GFR ( Amer) Est GFR (Non-Af Amer) BUN/Creatinine Ratio Glucose Estimat Average Glucose 108 Hemoglobin A1c 5.4 Calcium Magnesium Troponin I NT-Pro-B Natriuret Pep TSH Free T4 Urine Color Dark Yellow Urine Appearance Cloudy A Urine pH 5.0 Ur Specific [place] 1.026 Urine Protein Trace H Urine Glucose (UA) Negative Urine Ketones Trace H Urine Blood 1+ H Urine Nitrite Negative Urine Bilirubin Negative Urine Urobilinogen Negative Ur Leukocyte Esterase 2+ H Urine WBC (Auto) >30 H Urine RBC (Auto) 5-10 H U Hyaline Cast (Auto) 1-5 U Epithel Cells (Auto) >30 H Urine Bacteria (Auto) Negative 12/15/19 05:51 WBC RBC Hgb Hct MCV MCH MCHC RDW Std Deviation RDW Coeff of [place] Plt Count MPV Immature Gran % (Auto) Neut % (Auto) Lymph % (Auto) [place] % (Auto) Eos % (Auto) Baso % (Auto) Neut # (Auto) Lymph # (Auto) [place] # (Auto) Eos # (Auto) Baso # (Auto) Immature Gran # (Auto) PT INR APTT PTT Ratio Sodium Potassium Chloride Carbon Dioxide Anion Gap BUN Creatinine Est Cr Clr Drug Dosing Est GFR ( Amer) Est GFR (Non-Af Amer) BUN/Creatinine Ratio Glucose Estimat Average Glucose Hemoglobin A1c Calcium Magnesium Troponin I 0.076 H* NT-Pro-B Natriuret Pep TSH Free T4 Urine Color Urine Appearance Urine pH Ur Specific [place] Urine Protein Urine Glucose (UA) Urine Ketones Urine Blood Urine Nitrite Urine Bilirubin Urine Urobilinogen Ur Leukocyte Esterase Urine WBC (Auto) Urine RBC (Auto) U Hyaline Cast (Auto) U Epithel Cells (Auto) Urine Bacteria (Auto)
--- NOTE | 2019-12-15 15:09 | Magnetic Resonance Report ---
MR brain wo con HISTORY: 84 years-old Female episode of blurred vision, r/o CVA acute blurry vision with strokelike symptoms COMPARISON: Head CT 12/15/2019 TECHNIQUE: Multiplanar multisequence MRI of the brain was obtained without the use of IV contrast. 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 Midline structures including th e corpus callosum, brainstem, optic chiasm, pituitary and pineal glands appear unremarkable in sagitt al T1 series. The study is motion degraded. Multilevel degenerative changes of the cervical spine. Th ere is no restricted diffusion to suggest acute or subacute infarct. Age-related involutional changes with ex vacuo ventriculomegaly. Moderate patchy T2/FLAIR hyperintensities are noted throughout the w ami matter of the bilateral cerebral hemispheres. No acute intracranial hemorrhage, midline shift, a bnormal extra-axial collection, hydrocephalus or intracranial mass. Major vascular flow voids appear patent. Trace mastoid effusions. Mild mucosal thickening of the ethmoid air cells] frontal sinuses. L eft ping bullosa. Prior bilateral lens replacement. IMPRESSION: 1. No acute intracranial abnormality, specifically there is no evidence of acute or subacute infarct. 2. Age-related involutional changes with ex vacuo ventriculomegaly. 3. Moderate patchy T2/FLAIR hyperintensities throughout the white matter are nonspecific however are suggestive of chronic microvascular ischemic disease. ACT 112: Negative or not required by law. The above report was generated using voice recognition software. It may contain grammatical, syntax o r spelling errors. Electronically signed by: Donald Leavitt M.D. 12/15/2019 3:08 PM
[2019-12-15] MEDS ORDERED: METOPROLOL SUCC 25MG EXT REL TAB PO STA (15:21)
[2019-12-15] MEDS ORDERED: FUROSEMIDE 40 MG TAB PO ONE (15:22)
[2019-12-15] MEDS ORDERED: lisinopriL 10 MG TAB PO SCH (15:30)
--- NOTE | 2019-12-15 17:48 | Electrocardiogram Report ---
Test Reason : Blood Pressure : / mmHG Vent. Rate : 102 BPM Atrial Rate : 089 BPM P-R Int : 000 ms QRS Dur : 070 ms QT Int : 364 ms P-R-T Axes : 000 033 058 degrees QTc Int : 474 ms Poor data quality, interpretation may be adversely affected Atrial fibrillation with rapid ventricular response Nonspecific ST abnormality Abnormal ECG When compared with ECG of 23-MAY-2018 06:23, Nonspecific T wave abnormality, worse in Anterior leads Confirmed by John Mansfield ([id number]) on 12/15/2019 5:48:30 PM Referred By: REFERRED SELF Confirmed By:Pilo Mansfield
--- NOTE | 2019-12-15 18:08 | Discharge Summary ---
Date of Service December 15, 2019 Admission HPI Per Admitting Provider History obtained from patient and records. Medical history significant for A. fib on Coumadin, mitral regurgitation as per records, hypertension, hyperlipidemia, NAFLD cirrhosis, hypothyroidism, asthma, essential tremor as per records. Last confinement May 2018 for asthma exacerbation. Patient was watching television last night when she noted transient darkening of her vision on both eyes for about 10 seconds. No headache, arm/ leg weakness, slurred speech. No chest pain. Transient shortness of breath which patient attributed to possible anxiety. Transient bladder discomfort without abdominal pain w/ chills. Patient compliant with home meds. No unusual stress at home. Patient brought to ER for evaluation. SBP initially 180s, cardiac rate 110s upon arrival at the ER. Patient given IV Lopressor. Aspirin given for troponin elevation. 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 [employer] Admission Exam Per Admitting Provider GENERAL: Comfortable, pleasant, morbidly obese, looks younger than stated age, no respiratory distress SKIN: Normal color, warm HEENT: [place] palpebral conjunctivae, no ptosis, dry buccal mucosa NECK : Supple, short neck, no tenderness CHEST : CTA, no tenderness HEART : Irregular, systolic murmur ABDOMEN: Some distention, nontender EXTREMITIES : Minimal LE swelling, no LE tenderness, no other conspicuous deformities noted NEUROLOGIC : Coherent, no facial asymmetry, intention tremors, gait and stance not assessed Principal Diagnosis EPISODE OF BLURRED VISION, acute CVA ruled out Discharge Exam General- oriented x 3, not in distress, speaks in sentences with no effort or accessory muscle use Head- atraumatic Eyes- PERRL, EOMI, anicteric ENT- oropharynx clear Neck- supple, no JVD, no adenopathy, no thyromegaly; carotids +2/2, no bruits appreciated Lungs- clear to auscultation bilaterally, no rales/wheezes Heart- normal rate, irregularly irregular rhythm; no murmur, no gallop, no rub appreciated Abdomen- normal bowel sounds, nondistended, soft, nontender, no masses or hepatosplenomegaly Extremities- trace pretibial edema, no calf tenderness; peripheral pulses intact Neuro- alert, oriented x 3; CN 2-12 grossly intact; motor 5/5 bilaterally;sensation 100% on all extremities; no other gross focal neurologic deficits Skin- warm & dry Discharge Data Allergies Allergy/AdvReac Type Severity Reaction Status Date / Time epinephrine AdvReac Severe SEVERE Verified 12/15/19 02:50 TACHYCARDIA Beta-Blockers AdvReac Intermediate CHF Verified 12/15/19 02:50 (Beta-Adrenergic Bloc sotalol AdvReac Intermediate CHF Verified 12/15/19 02:50 Consultations 12/15/19 02:41 ED Decision to Admit Stat 12/15/19 05:25 Consult Case Management - Discharge Planning Routine Consult Neurology Routine Ordered Studies 12/15/19 03:23 CT head/brain wo con Urgent Comparison: None. Findings: The paranasal sinuses and mastoid air cells are clear. The calvarium and skull base are intact. The ventricles and sulci are within normal limits. There is no mass, hematoma, midline shift, or acute infarct. Impression: No acute intracranial abnormality. 12/15/19 07:33 MR brain wo con Routine COMPARISON: Head CT 12/15/2019 TECHNIQUE: Multiplanar multisequence MRI of the brain was obtained without the use of IV contrast. 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 Midline structures including the corpus callosum, brainstem, optic chiasm, pituitary and pineal glands appear unremarkable in sagittal T1 series. The study is motion degraded. Multilevel degenerative changes of the cervical spine. There is no restricted diffusion to suggest acute or subacute infarct. Age-related involutional changes with ex vacuo ventriculomegaly. Moderate patchy T2/FLAIR hyperintensities are noted throughout the white matter of the bilateral cerebral hemispheres. No acute intracranial hemorrhage, midline shift, abnormal extra- axial collection, hydrocephalus or intracranial mass. Major vascular flow voids appear patent. Trace mastoid effusions. Mild mucosal thickening of the ethmoid air cells] frontal sinuses. Left ping bullosa. Prior bilateral lens replacement. IMPRESSION: 1. No acute intracranial abnormality, specifically there is no evidence of acute or subacute infarct. 2. Age-related involutional changes with ex vacuo ventriculomegaly. 3. Moderate patchy T2/FLAIR hyperintensities throughout the white matter are nonspecific however are suggestive of chronic microvascular ischemic disease. Hospital Course (1) Blurred vision, bilateral: Episode of blurring of vision Acute CVA ruled out CT head: Findings: The paranasal sinuses and mastoid air cells are clear. The calvarium and skull base are intact. The ventricles and sulci are within normal limits. There is no mass, hematoma, midline shift, or acute infarct. Impression: No acute intracranial abnormality. Brain MRI: No acute findings Neurologist consulted-Dr. Shabbir Villeda: Does not believe patient had a TIA Patient on chronic Coumadin for A. fib, INR on admission 1.5, recommend INR be maintained between 2 and 3 Atrial fibrillation on Coumadin INR 1.5 given additional Coumadin 5mg at 330am Increase Coumadin to 5 mg daily monitor INR INR needs to be maintained between 2 and 3 regularly for secondary stroke prevention Will inform Coumadin clinic regarding change and follow-up with Coumadin clinic this week continue Metoprolol, Simvastatin Hypertension Blood pressure elevated during admission as medications were held Blood pressure initially 180/84 Usual blood pressure medications resumed Blood pressure improved before discharge to 160/70 Patient asymptomatic Continue usual lisinopril, metoprolol, Lasix and Aldactone May need titration of blood pressure medications on follow-up with primary care physician this week Blood pressure goal less than 140/90 Mild troponin elevation secondary to elevated BP, heart rate Acute coronary syndrome ruled out mild Elevation of Troponin 0.07--> 0.07 EKG no signs of acute ischemia or infarct Echo: Mild concentric LVH, left ventricle wall motion is normal, ejection fraction 60 to 65%, moderate mitral regurgitation no cardiac symptoms NAFLD cirrhosis, no overt decompensation Hypothyroidism, TSH markedly elevated-20.5 Increase daily levothyroxine dose from 125 to 137 mcg daily, recheck TSH next month Possible UTI UA suggestive of UTI, patient asymptomatic Urine culture: pending, follow-up Disposition DC home Follow-up with PCP this week Plan of care discussed with patient in detail and at length All questions were answered She is understanding, comfortable, agreeable with the plan of care Total Time Total Time Spent Total Time Spent (In Minutes): 55 MINUTES Discharge Plan Discharge Items Patient Disposition: Home - Self-Care Reason For Visit: TIA Discharge Diagnosis: EPISODE OF BLURRING OF VISION, ACUTE STROKE RULED OUT Activity: Resume your previous activity Activity Comment: Gradually as tolerated Lifting: Wait until after follow-up appointment Exercise/Sports: Wait until after follow-up appointment Driving/Machine Use: No driving until reevaluated and allowed by primary care physician Non-emergency contact: Primary Care Provider Call non-emergency contact if: you have any medication questions and you have a fever Follow-up/Referrals: Jovany lE MD [Primary Care Provider] - Diet: Heart Healthy Addtl Attending Provider Instructions: Your medication changes include: Increase Coumadin to 5 mg daily Increase levothyroxine to 137.5 mcg daily The Coumadin clinic will be calling you this week for advice regarding blood work and dose of your Coumadin. Follow-up with Dr. El within 1 week. [facility] will be calling you for the appointment schedule. Who to Call and When: Medical Emergencies: Call 911 immediately if you experience any of the [place] warning signs and symptoms of Stroke: Sudden numbness or weakness of the face, arm or leg, especially on one side of the body Sudden confusion, trouble speaking or understanding Sudden trouble seeing in one or both eyes Sudden trouble walking, dizziness, loss of balance or coordination Sudden severe headache with no cause Do not delay calling 911 if you experience any warning signs or symptoms of a stroke. Delay in seeking medical attention may affect what treatments can be given to you. Pending Studies at Discharge: Yes Studies:: Urine culture result Blood work (INR) care of Coumadin clinic this week Repeat thyroid function test next month care of primary care physician Stand-Alone Forms: [facility] [place] [employer], Smoking Cessation Medications and DC Order Prescriptions: New levothyroxine 137 mcg Tablet 137 mcg PO DAILYBB Qty: 30 RF: 0 warfarin 5 mg Tablet 5 mg PO DAILY@1600 Qty: 30 RF: 0 Continued furosemide [Lasix] 40 mg Tablet See Rx Instructions .ROUTE .COMPLEX RF: 0 spironolactone [Aldactone] 25 mg Tablet 25 mg PO DAILY RF: 0 lorazepam 0.5 mg Tablet 0.5 mg PO TID PRN (Reason: headaches or tremors) RF: 0 montelukast 10 mg Tablet 10 mg PO DAILY RF: 0 albuterol sulfate 90 mcg/actuation Hfa Aerosol Inhaler 2 puff INHALATION Q6H PRN (Reason: SOB) RF: 0 fluticasone propionate 110 mcg/actuation HFA aerosol inhaler 2 inhaler Inhalation BID RF: 0 multivitamin Tablet 1 tab PO DAILY RF: 0 potassium chloride 10 mEq Capsule, Extended Release See Rx Instructions .ROUTE .COMPLEX RF: 0 simvastatin 20 mg Tablet 20 mg PO HS RF: 0 lisinopril 10 mg Tablet 10 mg PO DAILY RF: 0 nitroglycerin [Nitrostat] 0.4 mg Tablet, Sublingual 0.4 mg Sublingual UD PRN (Reason: Chest Pain) RF: 0 escitalopram oxalate 10 mg Tablet 10 mg PO DAILY RF: 0 calcium carbonate-vitamin D3 500 mg(1,250mg) -125 unit Tablet 1 tab PO TIDM RF: 0 omeprazole 20 mg capsule,delayed release(DR/EC) 20 mg PO DAILY RF: 0 metoprolol succinate 50 mg tablet extended release 24 hr 50 mg PO BID RF: 0 cholecalciferol (vitamin D3) [Vitamin D3] 25 mcg (1,000 unit) Capsule See Rx Instructions .ROUTE .COMPLEX RF: 0 meclizine 12.5 mg tablet 12.5 mg PO TID PRN (Reason: Dizziness) RF: 0 Discontinued levothyroxine 125 mcg tablet 125 mcg PO DAILY RF: 0 warfarin 4 mg tablet 4 mg PO DAILY RF: 0 Discharge Orders: Discharge Order (Routine); Ordered 12/15/19 Ordered By: Jacinto Masters Admission Data Admit Date/Time: 12/15/19 03:26 Attending Provider: Jacinto Masters Admit Provider: Isaías Lee Primary Care Provider: Jovany El Other Providers: Isaías Lee ; Geni Pate ; Ahsan Ordonez ; Geni Hobbs ; Shabbir Villeda
[2019-12-15] MEDS ORDERED: METOPROLOL SUCC 50MG EXT REL TAB PO SCH (21:00)
[2019-12-15] MEDS ORDERED: SIMVASTATIN 20 MG TAB PO SCH (21:00)
[2019-12-16] MEDS ORDERED: WARFARIN SOD 5 MG TAB PO SCH (16:00)
== END 2019-12-15 20:13 | disposition home or self-care (01) ==
LOC: ED 01:16 → 2E 01:16

== ENCOUNTER 2022-12-06 03:40 | Inpatient (IN) ==
--- NOTE | 2022-12-06 04:03 | Emergency Department Note ---
Impression & Plan Acute left flank pain ED Provider Note INFORMANT: Patient ED PROVIDER(S): Ahsan Chauhan MD CHIEF COMPLAINT: Abdominal pain PLAN: Disposition: Admitted Condition: Good Outpatient prescription management: none Referral: None MEDICAL DECISION MAKING: Patient presented because of flank pain and abdominal pain. Work-up was initiated. She was found to have a leukocytosis and elevated lactate. Urinalysis was concerning for infection. Cultures were done and the patient was hydrated. Patient is not hypotensive and not in shock. She did not meet criteria for severe sepsis not aggressively hydrated. She also has a history of CHF. She was given IV Rocephin and then vancomycin was also added. Patient's coags are pending. Chemistry panel was unremarkable. She underwent CT imaging. Consultation was made with the [facility], Dr. Curiel. Case was discussed and diagnostics were reviewed. Patient was excepted for admission. Radiology then noted there was concerns about hemorrhagic cyst on CT imaging. Patient's hemoglobin is stable. INR is pending and this will factor in on treatment. I did discuss this with the [facility]. I also consulted with urology, Dr. Oates. In light of the CT findings and her other issues he recommended the course of action currently underway. Antibiotics, monitoring, and they will consult on the patient this morning. I did review the CT with radiology, Dr. Lawrence and he agreed that the cyst had a hemorrhagic appearance to it and the surrounding abnormalities were likely inflammatory as opposed to true retroperitoneal hemorrhage. Close monitoring and follow-up will be necessary. Patient and family updated and she was admitted for further management. 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 Triage Nursing notes reviewed and agree them. Vital Signs: reviewed and remarkable for tachycardia Prior /Outside records reviewed: none Differential diagnosis: Renal colic, UTI, diverticulitis, mesenteric ischemia, aortic pathology, infections, appendicitis, inflammatory bowel disease, PUD, biliary pathology, as well as other pathologies. Diagnostics, as interpreted by me: ECG: Twelve-lead ECG reveals atrial fibrillation at [address] elevation or depression. Poor baseline data. Cardiac Monitoring: Cardiac monitoring ordered by me: The patient was placed on continuous cardiac monitoring and observed. It revealed atrial fibrillation at 108 bpm. Medical decision rules: none Imaging studies: CT scan as noted above. HPI: The patient is a 87year old female who presents to the Emergency Room with complaints of left flank pain. This started 2 hours ago and is described as severe. The patient also notes the following associated symptoms, none. The patient has been given 15 mg of Toradol by EMS for relieving factors. Current pain is rated as 5/10. Pt denies LOC, headache, fevers, chills, diaphoresis, visual changes, neck pain, chest pain, breathing difficulties, nausea, vomiting, back pain, melena, hematochezia, urinary symptoms, numbness, weakness, lymphadenopathy, rash, or other complaints. PAST MEDICAL HISTORY: See Below, hypertension, atrial fibrillation, anticoagulation PAST SURGICAL HISTORY: See Below, SOCIAL HISTORY: See Below, retired HOME MEDICATIONS: See Below ALLERGIES: See Below VITALS: See Below PHYSICAL EXAMINATION: GENERAL: Awake, alert, well-appearing, in no distress HENT: Normocephalic, atraumatic. Oropharynx unremarkable. EYES: Normal conjunctiva. Sclera non-icteric. NECK: Inspection normal. Non-tender. Supple. No nuchal rigidity. FROM. No masses. RESPIRATORY: Clear to auscultation. No wheezes. No rales. Normal respiratory effort. CARDIAC: Normal rate. Irregular rhythm. No murmurs. No rubs. Extremities warm and well perfused. Pulses equal. No JVD. GI: Soft, non-distended. Left lower quadrant tenderness to palpation. No rebound or guarding. No masses. RECTAL: Deferred. MUSCULOSKELETAL: Atraumatic. Chest examination reveals no tenderness. The back is symmetrical on inspection without obvious abnormality. There is no CVA tenderness to palpation. No joint edema. LOWER EXTREMITIES: Calves are equal size bilaterally and non-tender. No edema. No discoloration. NEURO: Normal sensorium. No sensory or motor deficits noted. SKIN: No rash or jaundice noted. Past Med/Surg History Medical History (Updated 12/06/22 @ 04:02 by Ahsan Chauhan MD) Atrial fibrillation Chest pain radiating to arm CHF (congestive heart failure) Echo 02/2018 The examination is adequate to evaluate the referral indication. The left ventricular cavity size is normal. The qualitative LV ejection fraction is 55-59% (normal). The right ventricular systolic function is normal as assessed by tricuspid annular plane systolic excursion (TAPSE) (normal >1.7 cm). The left atrium is severely enlarged (>48 ml/m^2,). The right atrium is moderately enlarged. There is moderate mitral annular calcification. Moderate mitral regurgitation is present. Mild tricuspid regurgitation is present. Cirrhosis of liver "noted on CT abdomen [facility] 10/31/15" CKD (chronic kidney disease), stage III Dyslipidemia Dyspnea Essential tremor HTN (hypertension) Hypertension Hypothyroidism Mild mitral regurgitation Osteoporosis Warfarin anticoagulation Surgical History H/O bladder repair surgery H/O colonoscopy History of hysterectomy S/P reduction mammoplasty Family History Father , age 54 Myocardial infarction Mother , age 75 Myocardial infarction Social History Smoking Status: Never smoker Do You Dip or Chew Tobacco: No; Hx Alcohol Use: Yes Alcohol type: beer, wine and hard liquor Hx Substance Use: No Preferred Language: Slovenian Communication Ability: Effective Visual Impairment: Limited Dietician Required: No Beliefs That Will Affect Care: Anabaptist Anabaptist Beliefs: Mosque marital status: Current Living Situation: Family Current Living Situation Comment: Lives with son Hasmukh. Feels Safe at Home: Yes Assistive Devices: Cane Allergies Allergies Allergy/AdvReac Type Severity Reaction Status Date / Time epinephrine AdvReac Severe SEVERE Verified 12/15/19 02:50 TACHYCARDIA Beta-Blockers AdvReac Intermediate CHF Verified 12/15/19 02:50 (Beta-Adrenergic Bloc sotalol AdvReac Intermediate CHF Verified 12/15/19 02:50 Home Meds Home Medications Medication Instructions Recorded Confirmed albuterol sulfate 90 mcg/actuation 2 puff inhalation Q6H PRN SOB 05/21/18 12/06/22 aerosol inhaler lisinopril 10 mg tablet 10 mg PO DAILY 05/21/18 12/06/22 lorazepam 0.5 mg tablet 0.5 mg PO TID PRN headaches or 05/21/18 12/06/22 tremors multivitamin 1 tab PO DAILY 05/21/18 12/06/22 nitroglycerin 0.4 mg sublingual 0.4 mg sublingual UD PRN Chest Pain 05/21/18 12/06/22 tablet (Nitrostat) spironolactone 25 mg tablet 25 mg PO DAILY 05/21/18 12/06/22 (Aldactone) calcium carbonate 500 mg-vitamin 1 tab PO TIDM 12/15/19 12/06/22 D3 3.125 mcg (125 unit) tablet meclizine 12.5 mg tablet 12.5 mg PO TID PRN Dizziness 12/15/19 12/06/22 metoprolol succinate 50 mg 50 mg PO 1XD 12/15/19 12/06/22 tablet,extended release 24 hr omeprazole 20 mg capsule,delayed 20 mg PO DAILY 12/15/19 12/06/22 release Vitamin D3 1,000 unit PO 1XD 12/06/22 12/06/22 allopurinol 100 mg tablet 100 mg PO 1XD 12/06/22 12/06/22 atorvastatin 20 mg tablet 20 mg PO 1XD 12/06/22 12/06/22 fluticasone propionate 110 110 mcg inhalation 2XD 12/06/22 12/06/22 mcg/actuation HFA aerosol inhaler (Flovent HFA) furosemide 40 mg tablet See Rx Instructions .Route .COMPLEX 12/06/22 12/06/22 iron,carbonyl 65 mg-vitamin C 125 62 - 125 tab PO 1XD 12/06/22 12/06/22 mg tablet,delayed release (Vitron-C) levothyroxine 137 mcg tablet See Rx Instructions .Route .COMPLEX 12/06/22 12/06/22 loperamide 2 mg PO 1XD PRN Diarrhea 12/06/22 12/06/22 warfarin 4 mg tablet 2 - 4 mg PO 1XD 12/06/22 12/06/22 Results & Data (ED) Vital Signs Vital Signs - 24 hr 12/06/22 03:56 12/06/22 03:42 12/06/22 04:15 Temperature 36.8 C Temperature Source Oral Pulse Rate 99 H 99 H 100 H Pulse Rate [Apical] Pulse Rhythm Regular Regular Pulse Rhythm [Apical] Pulse Strength Normal Pulse Strength [Apical] Respiratory Rate 18 18 Respiratory Effort / Characteristics Non-Labored Spontaneous Respiratory Depth Normal Respiratory Pattern Regular Blood Pressure 173/87 H Blood Pressure [Right Arm] Blood Pressure Mean 115 Blood Pressure Mean [Right Arm] Blood Pressure Position Lying Pulse Oximetry 93 93 Oxygen Delivery Method Room Air Room Air Oxygen Flow Rate Sepsis Recent Fever Within 48 Hours No Sepsis New/Unexplained Change in Mental Status No Sepsis Action Taken by Nursing No Action Required 12/06/22 05:00 12/06/22 06:00 Temperature Temperature Source Pulse Rate Pulse Rate [Apical] 109 H 108 H Pulse Rhythm Pulse Rhythm [Apical] Regular Pulse Strength Pulse Strength [Apical] Normal Respiratory Rate 22 24 Respiratory Effort / Characteristics Non-Labored Spontaneous Non-Labored Spontaneous Respiratory Depth Normal Normal Respiratory Pattern Regular Regular Blood Pressure Blood Pressure [Right Arm] 154/79 H 138/71 Blood Pressure Mean Blood Pressure Mean [Right Arm] 104 93 Blood Pressure Position Pulse Oximetry 94 98 Oxygen Delivery Method Room Air Nasal Cannula Oxygen Flow Rate 2 Sepsis Recent Fever Within 48 Hours Sepsis New/Unexplained Change in Mental Status Sepsis Action Taken by Nursing Laboratory Data 12/06/22 03:50 12/06/22 03:50 Lab Results 12/06/22 12/06/22 12/06/22 Range/Units 03:50 03:50 03:50 WBC 13.99 H (4.8-10.8) K/ul RBC 4.48 (4.20-5.40) M/uL Hgb 13.5 (12.0-16.0) g/dl Hct 40.9 (37.0-47.0) % MCV 91.3 (80.0-100.0) fL MCH 30.1 (25.0-34.0) pg MCHC 33.0 (32.0-36.0) g/dL RDW Std Deviation 47.6 H (36.4-46.3) fL RDW Coeff of [place] 14.3 (11.5-14.5) % Plt Count 281 (130-400) K/uL MPV 10.6 (9.4-12.4) fL Immature Gran % (Auto) 0.5 % Neut % (Auto) 87.2 % Lymph % (Auto) 6.9 % [place] % (Auto) 4.7 % Eos % (Auto) 0.3 % Baso % (Auto) 0.4 % Neut # (Auto) 12.21 H (1.40-6.50) K/uL Lymph # (Auto) 0.96 L (1.2-3.4) K/uL [place] # (Auto) 0.66 H (0.11-0.59) K/uL Eos # (Auto) 0.04 (0-0.50) K/uL Baso # (Auto) 0.05 (0-0.2) K/uL Immature Gran # (Auto) 0.07 (0.01-0.20) K/uL PT INR APTT PTT Ratio Sodium 139 (136-145) mmol/L Potassium 4.6 (3.5-5.1) mmol/L Chloride 103 (98-107) mmol/L Carbon Dioxide 26 (21-32) mmol/L Anion Gap 10 (3-11) BUN 30 H (6-23) mg/dl Creatinine 0.98 (0.6-1.2) mg/dl Est Cr Clr Drug Dosing 42.6 ml/min Est GFR ( Amer) 60.1 ml/min Est GFR (Non-Af Amer) 51.9 ml/min BUN/Creatinine Ratio 30.6 H (10-20) Glucose 121 H (70-99(Fasting)) mg/dl Lactate 2.2 H* (0.4-2.0) mmol/L Calcium 9.5 (8.6-10.3) mg/dl Total Bilirubin 1.6 H (0.2-1.0) mg/dl AST 26 (13-39) U/L ALT 14 (7-52) U/L Alkaline Phosphatase 141 H (34-104) U/L Total Protein 6.9 (6.0-8.3) gm/dl Albumin 4.1 (3.4-5.0) gm/dl Globulin 2.8 (2.5-4.0) gm/dl Albumin/Globulin Ratio 1.5 (0.9-2) Lipase 38 (11-82) U/L Urine Color Urine Appearance (Clear) Urine pH (4.5-7.5) Ur Specific [place] (1.000-1.030) Urine Protein (Negative) Urine Glucose (UA) (Negative) Urine Ketones (Negative) Urine Blood (Negative) Urine Nitrite (Negative) Urine Bilirubin (Negative) Urine Urobilinogen (Negative) Ur Leukocyte Esterase (Negative) Urine WBC (Auto) (0-5) /hpf Urine RBC (Auto) (0-4) /hpf U Hyaline Cast (Auto) (0-5) /lpf U Epithel Cells (Auto) (0-5) /lpf Urine Bacteria (Auto) (Negative) 12/06/22 12/06/22 12/06/22 Range/Units 03:50 03:50 04:15 WBC (4.8-10.8) K/ul RBC (4.20-5.40) M/uL Hgb (12.0-16.0) g/dl Hct (37.0-47.0) % MCV (80.0-100.0) fL MCH (25.0-34.0) pg MCHC (32.0-36.0) g/dL RDW Std Deviation (36.4-46.3) fL RDW Coeff of [place] (11.5-14.5) % Plt Count (130-400) K/uL MPV (9.4-12.4) fL Immature Gran % (Auto) % Neut % (Auto) % Lymph % (Auto) % [place] % (Auto) % Eos % (Auto) % Baso % (Auto) % Neut # (Auto) (1.40-6.50) K/uL Lymph # (Auto) (1.2-3.4) K/uL [place] # (Auto) (0.11-0.59) K/uL Eos # (Auto) (0-0.50) K/uL Baso # (Auto) (0-0.2) K/uL Immature Gran # (Auto) (0.01-0.20) K/uL PT Cancelled INR Cancelled APTT Cancelled Cancelled PTT Ratio Cancelled Cancelled Sodium (136-145) mmol/L Potassium (3.5-5.1) mmol/L Chloride (98-107) mmol/L Carbon Dioxide (21-32) mmol/L Anion Gap (3-11) BUN (6-23) mg/dl Creatinine (0.6-1.2) mg/dl Est Cr Clr Drug Dosing ml/min Est GFR ( Amer) ml/min Est GFR (Non-Af Amer) ml/min BUN/Creatinine Ratio (10-20) Glucose (70-99(Fasting)) mg/dl Lactate (0.4-2.0) mmol/L Calcium (8.6-10.3) mg/dl Total Bilirubin (0.2-1.0) mg/dl AST (13-39) U/L ALT (7-52) U/L Alkaline Phosphatase (34-104) U/L Total Protein (6.0-8.3) gm/dl Albumin (3.4-5.0) gm/dl Globulin (2.5-4.0) gm/dl Albumin/Globulin Ratio (0.9-2) Lipase (11-82) U/L Urine Color Yellow Urine Appearance Turbid A (Clear) Urine pH 5.0 (4.5-7.5) Ur Specific [place] 1.019 (1.000-1.030) Urine Protein 1+ H (Negative) Urine Glucose (UA) Negative (Negative) Urine Ketones Negative (Negative) Urine Blood 2+ H (Negative) Urine Nitrite Positive A (Negative) Urine Bilirubin Negative (Negative) Urine Urobilinogen Negative (Negative) Ur Leukocyte Esterase 2+ H (Negative) Urine WBC (Auto) >30 H (0-5) /hpf Urine RBC (Auto) 0-4 (0-4) /hpf U Hyaline Cast (Auto) 1-5 (0-5) /lpf U Epithel Cells (Auto) >30 H (0-5) /lpf Urine Bacteria (Auto) 3+ H (Negative) 12/06/22 Range/Units 05:45 WBC (4.8-10.8) K/ul RBC (4.20-5.40) M/uL Hgb (12.0-16.0) g/dl Hct (37.0-47.0) % MCV (80.0-100.0) fL MCH (25.0-34.0) pg MCHC (32.0-36.0) g/dL RDW Std Deviation (36.4-46.3) fL RDW Coeff of [place] (11.5-14.5) % Plt Count (130-400) K/uL MPV (9.4-12.4) fL Immature Gran % (Auto) % Neut % (Auto) % Lymph % (Auto) % [place] % (Auto) % Eos % (Auto) % Baso % (Auto) % Neut # (Auto) (1.40-6.50) K/uL Lymph # (Auto) (1.2-3.4) K/uL [place] # (Auto) (0.11-0.59) K/uL Eos # (Auto) (0-0.50) K/uL Baso # (Auto) (0-0.2) K/uL Immature Gran # (Auto) (0.01-0.20) K/uL PT INR APTT PTT Ratio Sodium (136-145) mmol/L Potassium (3.5-5.1) mmol/L Chloride (98-107) mmol/L Carbon Dioxide (21-32) mmol/L Anion Gap (3-11) BUN (6-23) mg/dl Creatinine (0.6-1.2) mg/dl Est Cr Clr Drug Dosing ml/min Est GFR ( Amer) ml/min Est GFR (Non-Af Amer) ml/min BUN/Creatinine Ratio (10-20) Glucose (70-99(Fasting)) mg/dl Lactate 1.7 (0.4-2.0) mmol/L Calcium (8.6-10.3) mg/dl Total Bilirubin (0.2-1.0) mg/dl AST (13-39) U/L ALT (7-52) U/L Alkaline Phosphatase (34-104) U/L Total Protein (6.0-8.3) gm/dl Albumin (3.4-5.0) gm/dl Globulin (2.5-4.0) gm/dl Albumin/Globulin Ratio (0.9-2) Lipase (11-82) U/L Urine Color Urine Appearance (Clear) Urine pH (4.5-7.5) Ur Specific [place] (1.000-1.030) Urine Protein (Negative) Urine Glucose (UA) (Negative) Urine Ketones (Negative) Urine Blood (Negative) Urine Nitrite (Negative) Urine Bilirubin (Negative) Urine Urobilinogen (Negative) Ur Leukocyte Esterase (Negative) Urine WBC (Auto) (0-5) /hpf Urine RBC (Auto) (0-4) /hpf U Hyaline Cast (Auto) (0-5) /lpf U Epithel Cells (Auto) (0-5) /lpf Urine Bacteria (Auto) (Negative) Administered Medications Sodium Chloride (Nss 1000ml) 1,000 mls @ 125 mls/hr IV .Q8H MATILDE Stop: 01/05/23 04:29 Last Admin: 12/06/22 05:32 Dose: 125 mls/hr Documented By: DONNA Vancomycin HCl 2,000 mg/ (Sodium Chloride) 540 mls @ 200 mls/hr IV NOW ONE Stop: 12/06/22 07:58 Last Admin: 12/06/22 05:31 Dose: 200 mls/hr Documented By: DONNA Discontinued Medications Sodium Chloride (Nss 1000ml) 500 mls @ 999 mls/hr IV .Q31M ONE Stop: 12/06/22 04:48 Last Infusion: 12/06/22 04:55 Dose: 0 mls/hr Documented By: Admin: 12/06/22 04:24 Dose: 999 mls/hr Documented By: DONNA Ceftriaxone Sodium (Rocephin) 2,000 mg in 70 mls @ 140 mls/hr IV NOW STA Stop: 12/06/22 05:08 Last Infusion: 12/06/22 05:20 Dose: 0 mls/hr Documented By: Admin: 12/06/22 04:50 Dose: 140 mls/hr Documented By: DONNA Sodium Chloride (Nss 1000ml) 500 mls @ 999 mls/hr IV .Q31M ONE Stop: 12/06/22 05:10 Last Infusion: 12/06/22 05:23 Dose: 0 mls/hr Documented By: Admin: 12/06/22 04:52 Dose: 999 mls/hr Documented By: DONNA Ondansetron HCl (Ondansetron Inj 2 Mg/Ml 2 Ml Vial) 4 mg IV NOW STA Stop: 12/06/22 04:19 Last Admin: 12/06/22 04:23 Dose: 4 mg Documented By: DONNA Imaging Data Radiologist's Impression: Abdomen/Pelvis CT 12/06/22 03:42 Exam(s): CT ABDOMEN + PELVIS Without Contrast EXAM: CT Abdomen and Pelvis Without Intravenous Contrast CLINICAL HISTORY: Reason for exam: flank pain. TECHNIQUE: Axial computed tomography images of the abdomen and pelvis without intravenous contrast. CTDI is 28.28 mGy and DLP is 1225.95 mGy-cm. Automated exposure control was utilized for the study. A dose lowering technique was utilized adhering to the principles of ALARA. COMPARISON: No relevant prior studies available. FINDINGS: Lung bases: Unremarkable. No mass. No consolidation. Mediastinum: There is moderate size hiatus hernia. ABDOMEN: Liver: Unremarkable. Gallbladder and bile ducts: Cholecystectomy. No ductal dilation. Pancreas: Unremarkable. No ductal dilation. Spleen: Unremarkable. No splenomegaly. Adrenals: Unremarkable. No mass. Kidneys and ureters: There are bilateral renal cortical cysts, left more than right. Some of the left renal cyst appear to be high density hemorrhagic cysts. There is perinephric stranding seen around a left lower pole hemorrhagic cyst, measuring up to 3.7 cm in diameter. No obstructing stones. No hydronephrosis. Stomach and bowel: There is sigmoid colonic diverticulosis. No obstruction. No mucosal thickening. PELVIS: Appendix: No findings to suggest acute appendicitis. Bladder: Unremarkable. No stones. Reproductive: Unremarkable as visualized. ABDOMEN and PELVIS: Intraperitoneal space: Unremarkable. No free air. Trace fluid seen in the pelvis. Bones/joints: No acute fracture. No dislocation. Soft tissues: There is 5.3 cm diameter omental fat-containing umbilical hernia. Vasculature: Unremarkable. No abdominal aortic aneurysm. Lymph nodes: Unremarkable. No enlarged lymph nodes. IMPRESSION: 1. Hemorrhagic left lower pole renal cortical cyst with surrounding stranding. The hemorrhage within the cyst appears to be acute. Follow- up MRI with contrast is suggested to rule out any underlying mass. 2. No hydronephrosis or nephrolithiasis 3. Multiple bilateral renal cortical cysts, including a number of high density left renal cortical cysts Electronically signed by: Chris Baez MD 12/06/22 06:05 AM Discharge Plan Visit Data Chief Complaint: Abdominal Pain Stated Complaint: ABDOMINAL/FLANK PAIN ED Provider: Ahsan Chauhan Discharge Problem: Acute left flank pain Forms Stand Alone Forms: [facility] [email or web address] Prescriptions Prescriptions: No Action spironolactone [Aldactone] 25 mg Tablet 25 mg PO DAILY lorazepam 0.5 mg Tablet 0.5 mg PO TID PRN (Reason: headaches or tremors) albuterol sulfate 90 mcg/actuation Hfa Aerosol Inhaler 2 puff INHALATION Q6H PRN (Reason: SOB) multivitamin Tablet 1 tab PO DAILY lisinopril 10 mg Tablet 10 mg PO DAILY nitroglycerin [Nitrostat] 0.4 mg Tablet, Sublingual 0.4 mg Sublingual UD PRN (Reason: Chest Pain) calcium carbonate-vitamin D3 500 mg(1,250mg) -125 unit Tablet 1 tab PO TIDM omeprazole 20 mg capsule,delayed release(DR/EC) 20 mg PO DAILY metoprolol succinate 50 mg tablet extended release 24 hr 50 mg PO 1XD meclizine 12.5 mg tablet 12.5 mg PO TID PRN (Reason: Dizziness) furosemide 40 mg tablet See Rx Instructions .ROUTE .COMPLEX Rx Instructions: TAKE 1 TABLET BY MOUTH DAILY, PLUS AN ADDITIONAL TABLET IN EARLY AFTERNOONS ON SUN, SUN, AND SUNDAY levothyroxine 137 mcg tablet See Rx Instructions .ROUTE .COMPLEX Rx Instructions: TAKE 1 TABLET BY MOUTH DAILY 5 DAYS PER WEEK AND 2 TABS TWICE PER WEEK (TOTAL OF 9 TABS/WEEK) atorvastatin 20 mg tablet 20 mg PO 1XD allopurinol 100 mg tablet 100 mg PO 1XD warfarin 4 mg tablet 2 - 4 mg PO 1XD Rx Instructions: TAKE 1/2 TO 1 TABLET (2MG TO 4MG) BY MOUTH DAILY DIRECTED BY [facility] fluticasone propionate [Flovent HFA] 110 mcg/actuation HFA aerosol inhaler 110 mcg INHALATION 2XD Vitron-C 65 mg iron- 125 mg tablet,delayed release (DR/EC) 62 - 125 tab PO 1XD Vitamin D3 1,000 UNITS 1,000 unit PO 1XD loperamide 2 mg PO 1XD PRN (Reason: Diarrhea) Referrals Referrals: PCP,NO [Physician] -
[2022-12-06] MEDS ORDERED: HYDROmorphone INJ 0.5 MG/0.5 ML SYR IV PRN ×2 (04:18→13:17)
[2022-12-06] MEDS ORDERED: SODIUM CHLORIDE 0.9% 1000ML 500 ML IV ONE ×2 (04:18→04:40)
[2022-12-06] MEDS ORDERED: ONDANSETRON INJ 2 MG/ML 2 ML VIAL IV STA (04:18)
[2022-12-06 04:20] LABS: Albumin Globulin Ratio 1.5 (0.9-2); Albumin Level 4.1 gm/dl (3.4-5.0); BUN Creatinine Ratio 30.6 (10-20); Bilirubin,Total 1.6 mg/dl (0.2-1.0); Calcium 9.5 mg/dl (8.6-10.3); Creatinine Clr Calc Pharmacy 42.6 ml/min; Est GFR (African American) 60.1 ml/min; Est GFR (Non-African American) 51.9 ml/min; Globulin 2.8 gm/dl (2.5-4.0); Potassium 4.6 mmol/L (3.5-5.1); Total Protein 6.9 gm/dl (6.0-8.3)
[2022-12-06 04:27] LABS: Basophils # (auto) 0.05 K/uL (0-0.2); Basophils % (auto) 0.4 %; Eosinophils # (auto) 0.04 K/uL (0-0.50); Eosinophils % (auto) 0.3 %; Hematocrit (blood only) 40.9 % (37.0-47.0); Hemoglobin 13.5 g/dl (12.0-16.0); Immature Granulocytes # (auto) 0.07 K/uL (0.01-0.20); Immature Granulocytes % (auto) 0.5 %; Lymphocytes # (auto) 0.96 K/uL (1.2-3.4); Lymphocytes % (auto) 6.9 %; Mean Corpuscular Hemoglobin 30.1 pg (25.0-34.0); Mean Corpuscular Volume 91.3 fL (80.0-100.0); Mean Platelet Volume 10.6 fL (9.4-12.4); Monocytes # (auto) 0.66 K/uL (0.11-0.59); Monocytes % (auto) 4.7 %; Neutrophils # (auto) 12.21 K/uL (1.40-6.50); Neutrophils % (auto) 87.2 %; Platelet Count 281 K/uL (130-400); RDW Coefficient of Variation 14.3 % (11.5-14.5); RDW Standard Deviation 47.6 fL (36.4-46.3); Red Blood Count 4.48 M/uL (4.20-5.40); White Blood Count 13.99 K/ul (4.8-10.8)
[2022-12-06 04:28] LABS: Appearance Urine Turbid (Clear); Bacteria Urine Automated 3+ (Negative); Bilirubin Urine Negative (Negative); Blood Urine 2+ (Negative); Color Urine Yellow; Epithelial Cell Urine Auto >30 /lpf (0-5); Glucose Urine UA Negative (Negative); Ketones Urine Negative (Negative); Leukocyte Esterase Urine 2+ (Negative); Nitrite Urine Positive (Negative); Protein Urine 1+ (Negative); RBC Urine Automated 0-4 /hpf (0-4); Specific Gravity Urine 1.019 (1.000-1.030); Urobilinogen Urine Negative (Negative); WBC Urine Automated >30 /hpf (0-5)
[2022-12-06] MEDS ORDERED: cefTRIAXone SODIUM 2,000 MG/70 ML BAG IV STA (04:39)
[2022-12-06] MEDS ORDERED: VANCOMYCIN CONSULT ACTIVE PRN (05:17)
[2022-12-06] MEDS ORDERED: VANCOMYCIN HCL 2,000 MG in SODIUM CHLORIDE 0.9% 500 ML IV ONE (05:17)
[2022-12-06] MEDS: SODIUM CHLORIDE 0.9% 1000ML 1,000 ML IV SCH ×2 (05:32→13:39)
--- NOTE | 2022-12-06 06:06 | CT Scan Report ---
Exam(s): CT ABDOMEN + PELVIS Without Contrast EXAM: CT Abdomen and Pelvis Without Intravenous Contrast CLINICAL HISTORY: Reason for exam: flank pain. TECHNIQUE: Axial computed tomography images of the abdomen and pelvis without intravenous contrast. CTDI is 28.28 mGy and DLP is 1225.95 mGy-cm. Automated exposure control was utilized for the study. A dose lowering technique was utilized adhering to the principles of ALARA. COMPARISON: No relevant prior studies available. FINDINGS: Lung bases: Unremarkable. No mass. No consolidation. Mediastinum: There is moderate size hiatus hernia. ABDOMEN: Liver: Unremarkable. Gallbladder and bile ducts: Cholecystectomy. No ductal dilation. Pancreas: Unremarkable. No ductal dilation. Spleen: Unremarkable. No splenomegaly. Adrenals: Unremarkable. No mass. Kidneys and ureters: There are bilateral renal cortical cysts, left more than right. Some of the left renal cyst appear to be high density hemorrhagic cysts. There is perinephric stranding seen around a left lower pole hemorrhagic cyst, measuring up to 3.7 cm in diameter. No obstructing stones. No hydronephrosis. Stomach and bowel: There is sigmoid colonic diverticulosis. No obstruction. No mucosal thickening. PELVIS: Appendix: No findings to suggest acute appendicitis. Bladder: Unremarkable. No stones. Reproductive: Unremarkable as visualized. ABDOMEN and PELVIS: Intraperitoneal space: Unremarkable. No free air. Trace fluid seen in the pelvis. Bones/joints: No acute fracture. No dislocation. Soft tissues: There is 5.3 cm diameter omental fat-containing umbilical hernia. Vasculature: Unremarkable. No abdominal aortic aneurysm. Lymph nodes: Unremarkable. No enlarged lymph nodes. IMPRESSION: 1. Hemorrhagic left lower pole renal cortical cyst with surrounding stranding. The hemorrhage within the cyst appears to be acute. Follow- up MRI with contrast is suggested to rule out any underlying mass. 2. No hydronephrosis or nephrolithiasis 3. Multiple bilateral renal cortical cysts, including a number of high density left renal cortical cysts Electronically signed by: Chris Baez MD 12/06/22 06:05 AM
--- NOTE | 2022-12-06 07:50 | History & Physical Report ---
Date of Service December 06, 2022 Assessment & Plan (1) Acute left flank pain: Plan: 87-year-old female with past medical history significant for hypothyroidism, hyperlipidemia, mitral regurgitation, moderate persistent asthma, hypertension, chronic atrial fibrillation, CAD, chronic diastolic CHF, chronic kidney disease stage III, cirrhosis of liver without ascites, morbid obesity, urinary incontinence, osteoarthritis, iron who lives at home deficiency anemia, history of edema, essential tremors who lives at home with her daughter and son and ambulates with a cane comes because of several left flank pain. Acute left flank pain Left renal hemorrhage as per CAT scan CT scan: . Hemorrhagic left lower pole renal cortical cyst with surrounding stranding. The hemorrhage within the cyst appears to be acute. Follow- up MRI with contrast is suggested to rule out any underlying mass. Urology notified by ER Await PT/INR Currently hemoglobin stable we will follow H&H Pain control We will keep her n.p.o. and gentle fluids. UTI We will start on IV Vanco and Rocephin which will be continued lactic acid normalized We will follow the cultures Chronic atrial fibrillation On metoprolol succinate Holding Coumadin for above reasons History of liver cirrhosis without ascites Chronic diastolic CHF We will continue diuretics Getting gentle fluids We will monitor for any volume overload Non obstructive CAD On beta-jer statin Hypertension On metoprolol succinate and lisinopril and diuretics We will monitor the blood pressure Hyperlipidemia On statin Morbid obesity Needs counseling Asthma moderate persistent Continue home inhalers Hypothyroidism continue home Synthyroid We will follow TSH levels Iron deficiency anemia Follows with heme-onc On iron supplements Hemoglobin stable CKD stage III presented with creatinine creatinine of 0.9 We will follow the labs DVT prophylaxis holding Coumadin SCDs for now Disposition telemetry floor Full code (2) Renal hemorrhage, left: History of Present Illness Chief Complaint: Left flank pain. Hemorrhage in the left pole of kidney. UTI Primary Care Provider: Jovany El MD 87-year-old female with past medical history significant for hypothyroidism, hyperlipidemia, mitral regurgitation, moderate persistent asthma, hypertension, chronic atrial fibrillation, CAD, chronic diastolic CHF, chronic kidney disease stage III, cirrhosis of liver without ascites, morbid obesity, urinary incontinence, osteoarthritis, iron who lives at home deficiency anemia, history of edema, essential tremors who lives at home with her daughter and son and ambulates with a cane comes because of several left flank pain. Denies any fevers. Normal bowel and bladder movements. No chest pain. No nausea. No shortness of breath. No cough. No headaches. Vision is okay. No runny nose or sore throat or cough. Currently pain is better. And hemodynamically stable. Allergies Allergy/AdvReac Type Severity Reaction Status Date / Time epinephrine AdvReac Severe SEVERE Verified 12/15/19 02:50 TACHYCARDIA Beta-Blockers AdvReac Intermediate CHF Verified 12/15/19 02:50 (Beta-Adrenergic Bloc sotalol AdvReac Intermediate CHF Verified 12/15/19 02:50 Home Medications Medication Instructions Recorded Confirmed Type albuterol sulfate 90 mcg/actuation 2 puff inhalation Q6H PRN SOB 05/21/18 12/06/22 History aerosol inhaler lisinopril 10 mg tablet 10 mg PO DAILY 05/21/18 12/06/22 History lorazepam 0.5 mg tablet 0.5 mg PO TID PRN headaches or 05/21/18 12/06/22 History tremors multivitamin 1 tab PO DAILY 05/21/18 12/06/22 History nitroglycerin 0.4 mg sublingual 0.4 mg sublingual UD PRN Chest Pain 05/21/18 12/06/22 History tablet (Nitrostat) spironolactone 25 mg tablet 25 mg PO DAILY 05/21/18 12/06/22 History (Aldactone) calcium carbonate 500 mg-vitamin 1 tab PO TIDM 12/15/19 12/06/22 History D3 3.125 mcg (125 unit) tablet meclizine 12.5 mg tablet 12.5 mg PO TID PRN Dizziness 12/15/19 12/06/22 History metoprolol succinate 50 mg 50 mg PO 1XD 12/15/19 12/06/22 History tablet,extended release 24 hr omeprazole 20 mg capsule,delayed 20 mg PO DAILY 12/15/19 12/06/22 History release Vitamin D3 1,000 unit PO 1XD 12/06/22 12/06/22 History allopurinol 100 mg tablet 100 mg PO 1XD 12/06/22 12/06/22 History atorvastatin 20 mg tablet 20 mg PO 1XD 12/06/22 12/06/22 History fluticasone propionate 110 110 mcg inhalation 2XD 12/06/22 12/06/22 History mcg/actuation HFA aerosol inhaler (Flovent HFA) furosemide 40 mg tablet See Rx Instructions .Route .COMPLEX 12/06/22 12/06/22 History iron,carbonyl 65 mg-vitamin C 125 62 - 125 tab PO 1XD 12/06/22 12/06/22 History mg tablet,delayed release (Vitron-C) levothyroxine 137 mcg tablet See Rx Instructions .Route .COMPLEX 12/06/22 12/06/22 History loperamide 2 mg PO 1XD PRN Diarrhea 12/06/22 12/06/22 History warfarin 4 mg tablet 2 - 4 mg PO 1XD 12/06/22 12/06/22 History Past Med/Surg History Medical History (Updated 12/06/22 @ 07:42 by Terrence Curiel MD) Atrial fibrillation Chest pain radiating to arm CHF (congestive heart failure) Echo 02/2018 The examination is adequate to evaluate the referral indication. The left ventricular cavity size is normal. The qualitative LV ejection fraction is 55-59% (normal). The right ventricular systolic function is normal as assessed by tricuspid annular plane systolic excursion (TAPSE) (normal >1.7 cm). The left atrium is severely enlarged (>48 ml/m^2,). The right atrium is moderately enlarged. There is moderate mitral annular calcification. Moderate mitral regurgitation is present. Mild tricuspid regurgitation is present. Cirrhosis of liver "noted on CT abdomen [facility] 10/31/15" CKD (chronic kidney disease), stage III Dyslipidemia Dyspnea Essential tremor HTN (hypertension) Hypertension Hypothyroidism Mild mitral regurgitation Osteoporosis Warfarin anticoagulation Surgical History H/O bladder repair surgery H/O colonoscopy History of hysterectomy S/P reduction mammoplasty Family History Father , age 54 Myocardial infarction Mother , age 75 Myocardial infarction Social History Smoking Status: Never smoker Do You Dip or Chew Tobacco: No; Hx Alcohol Use: Yes Alcohol type: beer, wine and hard liquor Hx Substance Use: No Preferred Language: Spanish Communication Ability: Effective Visual Impairment: Limited Apparatus Lineman Required: No Beliefs That Will Affect Care: Jain Jain Beliefs: Sabianist marital status: Current Living Situation: Family Current Living Situation Comment: Lives with son Hasmukh. Feels Safe at Home: Yes Assistive Devices: Cane Review of Systems Review of Systems: All systems reviewed & are unremarkable except as noted in Subjective Physical Exam Physical Exam: General- Not in distress Head- atraumatic Eyes- PERRL ENT- oropharynx clear Neck- supple, no JVD, Lungs- clear to auscultation and percussion Heart- regular rhythm; no murmur, no gallop, Abdomen- normal bowel sounds, soft, tenderness in left flank and left side of abdomen. No distension Extremities- b/l pretibial edema present , no erythema seen Neuro- alert, oriented x 3; PERRL, EOMI; no facial palsy; no dysarthria;non focal. Skin- warm & dry Results & Data Results & Data Vital Signs (Past 12 Hours) Vital Signs Temp Pulse Pulse Resp BP BP Pulse Ox 12/06/22 06:00 108 H 24 138/71 98 12/06/22 05:00 109 H 22 154/79 H 94 12/06/22 04:15 100 H 12/06/22 03:42 99 H 18 93 12/06/22 03:56 36.8 C 99 H 18 173/87 H 93 O2 Del Method O2 Flow Rate 12/06/22 06:00 Nasal Cannula 2 12/06/22 05:00 Room Air 12/06/22 04:15 12/06/22 03:42 Room Air 12/06/22 03:56 Room Air Diagnostic Findings Laboratory Results WBC 13.99 K/ul (4.8-10.8) H 12/06/22 03:50 RBC 4.48 M/uL (4.20-5.40) 12/06/22 03:50 Hgb 13.5 g/dl (12.0-16.0) 12/06/22 03:50 Hct 40.9 % (37.0-47.0) 12/06/22 03:50 MCV 91.3 fL (80.0-100.0) 12/06/22 03:50 MCH 30.1 pg (25.0-34.0) 12/06/22 03:50 MCHC 33.0 g/dL (32.0-36.0) 12/06/22 03:50 RDW Std Deviation 47.6 fL (36.4-46.3) H 12/06/22 03:50 RDW Coeff of [place] 14.3 % (11.5-14.5) 12/06/22 03:50 Plt Count 281 K/uL (130-400) 12/06/22 03:50 MPV 10.6 fL (9.4-12.4) 12/06/22 03:50 Immature Gran % (Auto) 0.5 % 12/06/22 03:50 Neut % (Auto) 87.2 % 12/06/22 03:50 Lymph % (Auto) 6.9 % 12/06/22 03:50 Emanuel % (Auto) 4.7 % 12/06/22 03:50 Eos % (Auto) 0.3 % 12/06/22 03:50 Baso % (Auto) 0.4 % 12/06/22 03:50 Neut # (Auto) 12.21 K/uL (1.40-6.50) H 12/06/22 03:50 Lymph # (Auto) 0.96 K/uL (1.2-3.4) L 12/06/22 03:50 Emanuel # (Auto) 0.66 K/uL (0.11-0.59) H 12/06/22 03:50 Eos # (Auto) 0.04 K/uL (0-0.50) 12/06/22 03:50 Baso # (Auto) 0.05 K/uL (0-0.2) 12/06/22 03:50 Immature Gran # (Auto) 0.07 K/uL (0.01-0.20) 12/06/22 03:50 PT Cancelled 12/06/22 03:50 INR Cancelled 12/06/22 03:50 APTT Cancelled 12/06/22 03:50 APTT Cancelled 12/06/22 03:50 PTT Ratio Cancelled 12/06/22 03:50 PTT Ratio Cancelled 12/06/22 03:50 Sodium 139 mmol/L (136-145) 12/06/22 03:50 Potassium 4.6 mmol/L (3.5-5.1) 12/06/22 03:50 Chloride 103 mmol/L (98-107) 12/06/22 03:50 Carbon Dioxide 26 mmol/L (21-32) 12/06/22 03:50 Anion Gap 10 (3-11) 12/06/22 03:50 BUN 30 mg/dl (6-23) H 12/06/22 03:50 Creatinine 0.98 mg/dl (0.6-1.2) 12/06/22 03:50 Est Cr Clr Drug Dosing 42.6 ml/min 12/06/22 03:50 Est GFR ( Amer) 60.1 ml/min 12/06/22 03:50 Est GFR (Non-Af Amer) 51.9 ml/min 12/06/22 03:50 BUN/Creatinine Ratio 30.6 (10-20) H 12/06/22 03:50 Glucose 121 mg/dl (70-99(Fasting)) H 12/06/22 03:50 Lactate 1.7 mmol/L (0.4-2.0) 12/06/22 05:45 Calcium 9.5 mg/dl (8.6-10.3) 12/06/22 03:50 Total Bilirubin 1.6 mg/dl (0.2-1.0) H 12/06/22 03:50 AST 26 U/L (13-39) 12/06/22 03:50 ALT 14 U/L (7-52) 12/06/22 03:50 Alkaline Phosphatase 141 U/L (34-104) H 12/06/22 03:50 Total Protein 6.9 gm/dl (6.0-8.3) 12/06/22 03:50 Albumin 4.1 gm/dl (3.4-5.0) 12/06/22 03:50 Globulin 2.8 gm/dl (2.5-4.0) 12/06/22 03:50 Albumin/Globulin Ratio 1.5 (0.9-2) 12/06/22 03:50 Lipase 38 U/L (11-82) 12/06/22 03:50 Urine Color Yellow 12/06/22 04:15 Urine Appearance Turbid (Clear) A 12/06/22 04:15 Urine pH 5.0 (4.5-7.5) 12/06/22 04:15 Ur Specific [place] 1.019 (1.000-1.030) 12/06/22 04:15 Urine Protein 1+ (Negative) H 12/06/22 04:15 Urine Glucose (UA) Negative (Negative) 12/06/22 04:15 Urine Ketones Negative (Negative) 12/06/22 04:15 Urine Blood 2+ (Negative) H 12/06/22 04:15 Urine Nitrite Positive (Negative) A 12/06/22 04:15 Urine Bilirubin Negative (Negative) 12/06/22 04:15 Urine Urobilinogen Negative (Negative) 12/06/22 04:15 Ur Leukocyte Esterase 2+ (Negative) H 12/06/22 04:15 Urine WBC (Auto) >30 /hpf (0-5) H 12/06/22 04:15 Urine RBC (Auto) 0-4 /hpf (0-4) 12/06/22 04:15 U Hyaline Cast (Auto) 1-5 /lpf (0-5) 12/06/22 04:15 U Epithel Cells (Auto) >30 /lpf (0-5) H 12/06/22 04:15 Urine Bacteria (Auto) 3+ (Negative) H 12/06/22 04:15 Impressions Abdomen/Pelvis CT 12/06/22 03:42 Exam(s): CT ABDOMEN + PELVIS Without Contrast EXAM: CT Abdomen and Pelvis Without Intravenous Contrast CLINICAL HISTORY: Reason for exam: flank pain. TECHNIQUE: Axial computed tomography images of the abdomen and pelvis without intravenous contrast. CTDI is 28.28 mGy and DLP is 1225.95 mGy-cm. Automated exposure control was utilized for the study. A dose lowering technique was utilized adhering to the principles of ALARA. COMPARISON: No relevant prior studies available. FINDINGS: Lung bases: Unremarkable. No mass. No consolidation. Mediastinum: There is moderate size hiatus hernia. ABDOMEN: Liver: Unremarkable. Gallbladder and bile ducts: Cholecystectomy. No ductal dilation. Pancreas: Unremarkable. No ductal dilation. Spleen: Unremarkable. No splenomegaly. Adrenals: Unremarkable. No mass. Kidneys and ureters: There are bilateral renal cortical cysts, left more than right. Some of the left renal cyst appear to be high density hemorrhagic cysts. There is perinephric stranding seen around a left lower pole hemorrhagic cyst, measuring up to 3.7 cm in diameter. No obstructing stones. No hydronephrosis. Stomach and bowel: There is sigmoid colonic diverticulosis. No obstruction. No mucosal thickening. PELVIS: Appendix: No findings to suggest acute appendicitis. Bladder: Unremarkable. No stones. Reproductive: Unremarkable as visualized. ABDOMEN and PELVIS: Intraperitoneal space: Unremarkable. No free air. Trace fluid seen in the pelvis. Bones/joints: No acute fracture. No dislocation. Soft tissues: There is 5.3 cm diameter omental fat-containing umbilical hernia. Vasculature: Unremarkable. No abdominal aortic aneurysm. Lymph nodes: Unremarkable. No enlarged lymph nodes. IMPRESSION: 1. Hemorrhagic left lower pole renal cortical cyst with surrounding stranding. The hemorrhage within the cyst appears to be acute. Follow- up MRI with contrast is suggested to rule out any underlying mass. 2. No hydronephrosis or nephrolithiasis 3. Multiple bilateral renal cortical cysts, including a number of high density left renal cortical cysts Electronically signed by: Chris Baez MD 12/06/22 06:05 AM ECG Additional Comments: ECG undetermined rhythm rate of [address] abnormalities Code Status & VTE Plan VTE Prophylaxis Plan VTE Prophylaxis will be ordered: Yes
[2022-12-06 08:24] LABS: INR 3.6 (0.9-1.1); Partial Thromboplastin Ratio 1.6; Prothrombin Time 36.5 Seconds (9.0-12.0)
[2022-12-06 08:33] LABS: Partial Thromboplastin Time 43.9 Seconds (21.0-31.0)
[2022-12-06] MEDS ORDERED: PHYTONADIONE 5 MG in DEXTROSE 5% 50 ML IV ONE (09:00)
--- NOTE | 2022-12-06 11:18 | Electrocardiogram Report ---
Test Reason : Blood Pressure : / mmHG Vent. Rate : 096 BPM Atrial Rate : 085 BPM P-R Int : 000 ms QRS Dur : 076 ms QT Int : 332 ms P-R-T Axes : 000 047 041 degrees QTc Int : 419 ms Poor data quality, interpretation may be adversely affected Atrial fibrillation ? tremor artifact Nonspecific ST and T wave abnormality Abnormal ECG When compared with ECG of 15-DEC-2019 01:56, No significant change Confirmed by Zeyad Perez ([id number]) on 12/06/2022 11:17:32 AM Referred By: REFERRED SELF Confirmed By:Zeyad Perez
--- NOTE | 2022-12-06 11:45 | Urology Consultation ---
Date of Consultation December 06, 2022 Assessment & Plan (1) UTI (urinary tract infection), bacterial: (2) Renal hemorrhage, left: Plan 87-year-old female with left abdominal pain and CT scan showing a suspected left renal cyst rupture. She also has a urinalysis concerning for infection. Reviewed her CT scan. It does appear that she may have had a cyst rupture and has had a small bleed but it does not track into her retroperitoneum at this point. She does have a positive urinalysis certainly could have a potential infection of the cyst as well although I think less likely. She will need repeat imaging in several months with and without contrast to ensure that this was not a renal mass that bled as cancer is on the differential Agree with antibiotics Follow-up cultures Do not think she necessarily needs to be reversed but would hold Coumadin in this setting as she is supratherapeutic Recommend at least q12 hemoglobins Okay for clear liquid diet, would hold off on solid food at this time Discussed with patient that this typically does not require any intervention but if there were concern for persistent bleed she would need to be transferred to a facility with interventional radiology. Urology to follow History of Present Illness Reason for Consultation: Left abdominal, ruptured left renal cyst History of Present Illness 87-year-old female who presented to the emergency department with left abdominal pain. She was afebrile and hypertensive. She was tachycardic but has a history of atrial fibrillation. Labs showed a mild leukocytosis of 13.99, hemoglobin of 13.5, INR of 3.6, creatinine of 0.98, and a UA that was positive for nitrates, 2+ leukocyte esterase, greater than 30 WBCs, 0-4 RBCs and 3+ bacteria. She was started on ceftriaxone. CT scan of the abdomen pelvis was performed and independently reviewed. This shows some stranding around the left kidney and a possible hyperdense cyst that may have ruptured. Radiology felt that it was acute. There was not any significant amount of retroperitoneal fluid that would represent a large bleed. She reports mild left abdominal pain. She has no urologic history. She has not had any previous urologic procedures. She has had a laparoscopic cholecystectomy. No smoking history. No family history of malignancies Allergies Allergy/AdvReac Type Severity Reaction Status Date / Time epinephrine AdvReac Severe SEVERE Verified 12/15/19 02:50 TACHYCARDIA Beta-Blockers AdvReac Intermediate CHF Verified 12/15/19 02:50 (Beta-Adrenergic Bloc sotalol AdvReac Intermediate CHF Verified 12/15/19 02:50 Home Medications Medication Instructions Recorded Confirmed Type albuterol sulfate 90 mcg/actuation 2 puff inhalation Q6H PRN SOB 05/21/18 12/06/22 History aerosol inhaler lisinopril 10 mg tablet 10 mg PO DAILY 05/21/18 12/06/22 History lorazepam 0.5 mg tablet 0.5 mg PO TID PRN headaches or 05/21/18 12/06/22 History tremors multivitamin 1 tab PO DAILY 05/21/18 12/06/22 History nitroglycerin 0.4 mg sublingual 0.4 mg sublingual UD PRN Chest Pain 05/21/18 12/06/22 History tablet (Nitrostat) spironolactone 25 mg tablet 25 mg PO DAILY 05/21/18 12/06/22 History (Aldactone) calcium carbonate 500 mg-vitamin 1 tab PO TIDM 12/15/19 12/06/22 History D3 3.125 mcg (125 unit) tablet meclizine 12.5 mg tablet 12.5 mg PO TID PRN Dizziness 12/15/19 12/06/22 History metoprolol succinate 50 mg 50 mg PO 1XD 12/15/19 12/06/22 History tablet,extended release 24 hr omeprazole 20 mg capsule,delayed 20 mg PO DAILY 12/15/19 12/06/22 History release Vitamin D3 1,000 unit PO 1XD 12/06/22 12/06/22 History allopurinol 100 mg tablet 100 mg PO 1XD 12/06/22 12/06/22 History atorvastatin 20 mg tablet 20 mg PO 1XD 12/06/22 12/06/22 History fluticasone propionate 110 110 mcg inhalation 2XD 12/06/22 12/06/22 History mcg/actuation HFA aerosol inhaler (Flovent HFA) furosemide 40 mg tablet See Rx Instructions .Route .COMPLEX 12/06/22 12/06/22 History iron,carbonyl 65 mg-vitamin C 125 62 - 125 tab PO 1XD 12/06/22 12/06/22 History mg tablet,delayed release (Vitron-C) levothyroxine 137 mcg tablet See Rx Instructions .Route .COMPLEX 12/06/22 12/06/22 History loperamide 2 mg PO 1XD PRN Diarrhea 12/06/22 12/06/22 History warfarin 4 mg tablet 2 - 4 mg PO 1XD 12/06/22 12/06/22 History Patient History Medical History (Updated 12/06/22 @ 11:42 by Nadeem Oates MD) Atrial fibrillation Chest pain radiating to arm CHF (congestive heart failure) Echo 02/2018 The examination is adequate to evaluate the referral indication. The left ventricular cavity size is normal. The qualitative LV ejection fraction is 55-59% (normal). The right ventricular systolic function is normal as assessed by tricuspid annular plane systolic excursion (TAPSE) (normal >1.7 cm). The left atrium is severely enlarged (>48 ml/m^2,). The right atrium is moderately enlarged. There is moderate mitral annular calcification. Moderate mitral regurgitation is present. Mild tricuspid regurgitation is present. Cirrhosis of liver "noted on CT abdomen [facility] 10/31/15" CKD (chronic kidney disease), stage III Dyslipidemia Dyspnea Essential tremor HTN (hypertension) Hypertension Hypothyroidism Mild mitral regurgitation Osteoporosis Warfarin anticoagulation Surgical History H/O bladder repair surgery H/O colonoscopy History of hysterectomy S/P reduction mammoplasty Family History Father , age 54 Myocardial infarction Mother , age 75 Myocardial infarction Social History Smoking Status: Never smoker Do You Dip or Chew Tobacco: No; Hx Alcohol Use: Yes Alcohol type: beer, wine and hard liquor Hx Substance Use: No Preferred Language: Slovak Communication Ability: Effective Visual Impairment: Limited Financial Health Counselor Required: No Beliefs That Will Affect Care: Jehovah'S Witness Jehovah'S Witness Beliefs: Mu-Ism marital status: Current Living Situation: Family Current Living Situation Comment: Lives with son Hasmukh. Feels Safe at Home: Yes Assistive Devices: Cane Review of Systems Review of Systems: 14 point review of systems negative outside of what is listed above in HPI Physical Exam Physical Exam: General: Alert and oriented, no acute distress HEENT: Normocephalic, mucous membranes moist Pulmonary: Nonlabored respirations Abdomen: Nondistended, nontender, soft. No CVA tenderness Extremities: Moves all 4 spontaneously Neuro: No gross deficits Skin: Warm, dry, no rashes noted Results & Data Vital Signs (Past 12 Hours) Vital Signs Temp Pulse Pulse Resp BP BP Pulse Ox 12/06/22 09:30 110 H 29 H 96 12/06/22 09:30 128/77 12/06/22 09:15 110 H 29 H 93 12/06/22 09:15 131/72 12/06/22 09:00 112 H 28 H 95 12/06/22 09:00 132/78 12/06/22 08:58 125/87 12/06/22 08:58 107 H 35 H 95 12/06/22 08:45 109 H 28 H 94 12/06/22 08:30 117 H 31 H 93 12/06/22 08:15 106 H 40 H 92 12/06/22 08:01 114 H 30 H 95 12/06/22 08:01 177/65 H 12/06/22 08:00 115 H 36 H 93 12/06/22 07:45 108 H 23 97 12/06/22 07:30 115 H 30 H 96 12/06/22 07:15 99 H 22 97 12/06/22 07:00 115 H 28 H 97 12/06/22 07:00 133/75 12/06/22 06:45 97 H 24 97 12/06/22 06:30 108 H 26 H 98 12/06/22 06:15 108 H 23 98 12/06/22 06:00 104 H 28 H 98 12/06/22 06:00 138/71 12/06/22 05:45 103 H 37 H 94 12/06/22 05:30 108 H 36 H 92 12/06/22 05:15 105 H 31 H 92 12/06/22 05:03 108 H 37 H 92 12/06/22 05:03 154/79 H 12/06/22 05:00 108 H 32 H 94 12/06/22 04:45 97 H 26 H 91 12/06/22 04:30 101 H 34 H 96 12/06/22 04:15 106 H 37 H 92 12/06/22 04:14 102 H 41 H 95 12/06/22 03:52 96 H 22 97 12/06/22 08:20 108 H 12/06/22 06:00 108 H 24 138/71 98 12/06/22 05:00 109 H 22 154/79 H 94 12/06/22 04:15 100 H 12/06/22 03:42 99 H 18 93 12/06/22 03:56 36.8 C 99 H 18 173/87 H 93 O2 Del Method O2 Flow Rate 12/06/22 09:30 12/06/22 09:30 12/06/22 09:15 12/06/22 09:15 12/06/22 09:00 12/06/22 09:00 12/06/22 08:58 12/06/22 08:58 12/06/22 08:45 12/06/22 08:30 12/06/22 08:15 12/06/22 08:01 12/06/22 08:01 12/06/22 08:00 12/06/22 07:45 12/06/22 07:30 12/06/22 07:15 12/06/22 07:00 12/06/22 07:00 12/06/22 06:45 12/06/22 06:30 12/06/22 06:15 12/06/22 06:00 12/06/22 06:00 12/06/22 05:45 12/06/22 05:30 12/06/22 05:15 12/06/22 05:03 12/06/22 05:03 12/06/22 05:00 12/06/22 04:45 12/06/22 04:30 12/06/22 04:15 12/06/22 04:14 12/06/22 03:52 12/06/22 08:20 12/06/22 06:00 Nasal Cannula 2 12/06/22 05:00 Room Air 12/06/22 04:15 12/06/22 03:42 Room Air 12/06/22 03:56 Room Air PG Care Time/CCT Total # of Minutes Spent Total Time Spent with Patient: Total time spent is greater than 50% in coordination of care (as documented) at patient's floor/unit and/or counseling patient: Coding Level of Care Code 51709 INT INP/OBS CARE 2/55MIN Diagnoses UTI (urinary tract infection), bacterial N39.0; A49.9 Renal hemorrhage, left N28.89
[2022-12-06] MEDS ORDERED: SODIUM CHLORIDE 0.9% 1000ML 1,000 ML IV SCH (13:17)
[2022-12-06] MEDS ORDERED: NON-FORMULARY MEDICATION (Iron,Carbonyl-Vitamin C [Vitron-C] 65 mg iron- 125 mg tablet,del PO SCH (13:17)
[2022-12-06] MEDS ORDERED: LORazepam 0.5 MG TAB PO PRN (13:17)
[2022-12-06] MEDS ORDERED: ALBUTEROL HFA 8 GM INHALER INH PRN (13:17)
[2022-12-06] MEDS ORDERED: MECLIZINE 12.5 MG TAB PO PRN (13:17)
[2022-12-06] MEDS ORDERED: NITROGLYCERIN SL 0.4 MG/TAB TAB SL PRN ×2 (13:17)
[2022-12-06] MEDS ORDERED: POLYETHYLENE (MIRALAX) 17 GM PACK PO PRN (13:17)
[2022-12-06] MEDS ORDERED: ONDANSETRON INJ 2 MG/ML 2 ML VIAL IV PRN (13:17)
[2022-12-06] MEDS ORDERED: LEVOTHYROXINE SODIUM 137 MCG TABLET PO SCH (14:00)
[2022-12-06 14:32] LABS: Hematocrit (blood only) 36.8 % (37.0-47.0); Hemoglobin 11.8 g/dl (12.0-16.0)
--- NOTE | 2022-12-06 15:13 | Pharmacy Report ---
Pharmacy PK ABX Note - Date of Service December 06, 2022 - Assessment and Plan Assessment 87 year old F receiving vancomycin/Rocephin for treatment of UTI. Vancomycin currently ordered with empiric indication. If therapy is to continue past 48 hours, levels will be ordered. Patient presenting with suspected renal cyst rupture, with possible, but less likely infection of the cyst per urology. Day # 1 of antimicrobial therapy. Plan Vancomycin * Loading dose: 2000 mg IV x 1 (administered this morning) * Maintenance dose: 750 mg IV every 24 hours starting tomorrow morning * Regimen is predicted to achieve target AUC/DENIZ of 400-600 mg/L.hr * Level to be ordered if therapy continues Pharmacy will continue to follow and will adjust dose/frequency as necessary. Thank you. Pharmacy has transitioned to AUC monitoring for vancomycin. AUC/DENIZ is the pref erred PK/PD target and is associated with decreased risk of nephrotoxicity compared to traditional trough targets.
[2022-12-06] MEDS: METOPROLOL SUCC 50MG EXT REL TAB PO SCH (15:19)
[2022-12-06] MEDS: FUROSEMIDE 40 MG TAB PO SCH (15:19)
[2022-12-06] MEDS: SPIRONOLACTONE 25 MG TAB PO SCH (15:19)
[2022-12-06] MEDS: lisinopril 10 MG TAB PO SCH (15:20)
[2022-12-06] MEDS: CALCIUM 600MG + VIT D 400 IU TAB PO SCH ×2 (15:20→17:26)
[2022-12-06] MEDS: ATORVASTATIN 20 MG TAB PO SCH (15:20)
[2022-12-06] MEDS: allopurinoL 100 MG TAB PO SCH (15:20)
[2022-12-06] MEDS: ACETAMINOPHEN 325 MG TAB PO PRN (15:25)
--- NOTE | 2022-12-06 16:10 | Hospitalist Progress Note ---
Date of Service December 06, 2022 Assessment & Plan (1) Renal hemorrhage, left: Plan 87-year-old female with past medical history significant for hypothyroidism, hyperlipidemia, mitral regurgitation, moderate persistent asthma, hypertension, chronic atrial fibrillation, CAD, chronic diastolic CHF, chronic kidney disease stage III, cirrhosis of liver without ascites, morbid obesity, urinary incontinence, osteoarthritis, iron deficiency anemia, history of edema, essential tremors who lives at home with her daughter and son and ambulates with a cane comes because of several left flank pain,, denies any fever or abnormal bowel or bladder habits. She is being managed for the following: Acute left flank pain Renal hemorrhage, left Suspected left renal cyst rupture Admitting CT abdomen pelvis: Hemorrhagic left lower pole renal cortical cyst with surrounding stranding, hemorrhage within the cyst appears to be acute. Follow-up MRI with contrast is recommended to rule out any underlying mass. No hydronephrosis or nephrolithiasis. Multiple bilateral renal cortical cyst, including a number of high density left renal cortical cyst. Admitting hemoglobin of 13.5, hemoglobin 11.8 during the day, trend H&H. INR elevated at 3.6, Coumadin on hold. Transfuse as needed for symptomatic anemia or hemoglobin less than 8. Urology evaluated, repeat imaging in several months, agrees with antibiotic, hold Coumadin. No need for acute intervention for now. Complicated UTI : UA suggestive of UTI, patient started on Rocephin and Vanco 12/06 , we will continue. Chronic atrial fibrillation: On metoprolol succinate. Holding Coumadin for above reasons liver cirrhosis without ascites, Chronic diastolic CHF -->> continue with/resume home meds as and when able. Monitor for volume overload. Non obstructive CAD: On beta-jer statin Hypertension: On metoprolol succinate and lisinopril and diuretics Hyperlipidemia: On statin Morbid obesity: Weight loss/lifestyle modification counseling done. Asthma moderate persistent: Continue home inhalers Hypothyroidism: continue home Synthyroid, TSH elevated, will increase levothyroxine 137mcg to 150 mcg. Continue 274 mcg on Sunday and . Repeat thyroid function test in 6 weeks and follow-up with PCP. Iron deficiency anemia: Follows with heme-onc, On iron supplements. CKD stage III: presented with creatinine creatinine of 0.9. Stable DVT prophylaxis: Supratherapeutic INR, holding Coumadin. Full code Admission and Anticipated Discharge Date Admission Date: December 06, 2022 Subjective Patient seen and examined at bedside as a follow-up of acute left flank pain, complicated UTI, left renal hemorrhage. Patient was lying in bed, on room air, NAD, reports some improvement in her left-sided abdominal pain, patient denies any febrile illness or flulike illness in the recent past. Patient reports eating okay and moving bowels okay. Denies any cough or chest pain. Physical Exam Physical Exam: GENERAL: Alert and oriented x3. NAD, on RA. HEENT: No pallor, no icterus. Pupils equal, round and reactive to light. Oral mucosa moist. NECK: No JVD, no neck masses. HEART: S1 and S2 heard. Regular rate and rhythm. No murmur, no gallop. RESPIRATORY SYSTEM: Normal AP diameter. No accessory muscle use. No wheezing, no crackles. ABDOMEN: Soft, bowel sounds present, left-sided abdominal tenderness, no distention. CENTRAL NERVOUS SYSTEM: No facial droop. Speech is clear. Obeys simple commands. Moves extremities. EXTREMITIES: RLE trace edema, LLE 1+ pitting edema, no erythema seen. Results & Data Results & Data Vital Signs (Past 12 Hours) Vital Signs Temp Pulse Pulse Resp BP BP Pulse Ox 12/06/22 15:40 36.6 C 90 20 116/67 94 12/06/22 13:45 37.2 C 102 H 20 143/90 H 99 12/06/22 12:00 100 H 18 129/79 95 12/06/22 09:30 110 H 29 H 96 12/06/22 09:30 128/77 12/06/22 09:15 110 H 29 H 93 12/06/22 09:15 131/72 12/06/22 09:00 112 H 28 H 95 12/06/22 09:00 132/78 12/06/22 08:58 125/87 12/06/22 08:58 107 H 35 H 95 12/06/22 08:45 109 H 28 H 94 12/06/22 08:30 117 H 31 H 93 12/06/22 08:15 106 H 40 H 92 12/06/22 08:01 114 H 30 H 95 12/06/22 08:01 177/65 H 12/06/22 08:00 115 H 36 H 93 12/06/22 07:45 108 H 23 97 12/06/22 07:30 115 H 30 H 96 12/06/22 07:15 99 H 22 97 12/06/22 07:00 115 H 28 H 97 12/06/22 07:00 133/75 12/06/22 06:45 97 H 24 97 12/06/22 06:30 108 H 26 H 98 12/06/22 06:15 108 H 23 98 12/06/22 06:00 104 H 28 H 98 12/06/22 06:00 138/71 12/06/22 05:45 103 H 37 H 94 12/06/22 05:30 108 H 36 H 92 12/06/22 05:15 105 H 31 H 92 12/06/22 05:03 108 H 37 H 92 12/06/22 05:03 154/79 H 12/06/22 05:00 108 H 32 H 94 12/06/22 04:45 97 H 26 H 91 12/06/22 04:30 101 H 34 H 96 12/06/22 04:15 106 H 37 H 92 12/06/22 04:14 102 H 41 H 95 12/06/22 08:20 108 H 12/06/22 06:00 108 H 24 138/71 98 12/06/22 05:00 109 H 22 154/79 H 94 12/06/22 04:15 100 H 12/06/22 03:56 36.8 C 99 H 18 173/87 H 93 O2 Del Method O2 Flow Rate 12/06/22 15:40 Room Air 12/06/22 13:45 Nasal Cannula 3 12/06/22 12:00 12/06/22 09:30 12/06/22 09:30 12/06/22 09:15 12/06/22 09:15 12/06/22 09:00 12/06/22 09:00 12/06/22 08:58 12/06/22 08:58 12/06/22 08:45 12/06/22 08:30 12/06/22 08:15 12/06/22 08:01 12/06/22 08:01 12/06/22 08:00 12/06/22 07:45 12/06/22 07:30 12/06/22 07:15 12/06/22 07:00 12/06/22 07:00 12/06/22 06:45 12/06/22 06:30 12/06/22 06:15 12/06/22 06:00 12/06/22 06:00 12/06/22 05:45 12/06/22 05:30 12/06/22 05:15 12/06/22 05:03 12/06/22 05:03 12/06/22 05:00 12/06/22 04:45 12/06/22 04:30 12/06/22 04:15 12/06/22 04:14 12/06/22 08:20 12/06/22 06:00 Nasal Cannula 2 12/06/22 05:00 Room Air 12/06/22 04:15 12/06/22 03:56 Room Air
[2022-12-06 19:34] LABS: Hematocrit (blood only) 33.1 % (37.0-47.0); Hemoglobin 10.7 g/dl (12.0-16.0)
[2022-12-07 00:59] LABS: Hematocrit (blood only) 34.2 % (37.0-47.0); Hemoglobin 10.8 g/dl (12.0-16.0)
[2022-12-07] MEDS ORDERED: cefTRIAXone SODIUM 2,000 MG in DEXTROSE 5% 50 ML IV SCH (05:00)
[2022-12-07] MEDS ORDERED: VANCOMYCIN HCL 750 MG in SODIUM CHLORIDE 0.9% 250 ML IV SCH (06:00)
[2022-12-07] MEDS ORDERED: LEVOTHYROXINE SODIUM 137 MCG TABLET PO SCH (06:30)
[2022-12-07 06:35] LABS: Hematocrit (blood only) 35.1 % (37.0-47.0); Mean Corpuscular Hgb Conc 31.3 g/dL (32.0-36.0); Mean Corpuscular Volume 95.6 fL (80.0-100.0); Mean Platelet Volume 10.7 fL (9.4-12.4); Platelet Count 224 K/uL (130-400); RDW Coefficient of Variation 14.6 % (11.5-14.5); RDW Standard Deviation 50.8 fL (36.4-46.3); Red Blood Count 3.67 M/uL (4.20-5.40); White Blood Count 19.03 K/ul (4.8-10.8)
[2022-12-07 06:48] LABS: BUN Creatinine Ratio 26.7 (10-20); Calcium 8.5 mg/dl (8.6-10.3); Creatinine Clr Calc Pharmacy 42.6 ml/min; Magnesium 1.8 mg/dl (1.7-2.4); Potassium 4.4 mmol/L (3.5-5.1)
[2022-12-07 06:56] LABS: Basophils # (auto) 0.06 K/uL (0-0.2); Basophils % (auto) 0.3 %; Eosinophils # (auto) 0.03 K/uL (0-0.50); Eosinophils % (auto) 0.2 %; Immature Granulocytes % (auto) 0.5 %; Lymphocytes # (auto) 0.53 K/uL (1.2-3.4); Lymphocytes % (auto) 2.8 %; Monocytes # (auto) 0.96 K/uL (0.11-0.59); Neutrophils # (auto) 17.35 K/uL (1.40-6.50); Neutrophils % (auto) 91.2 %
[2022-12-07 06:57] LABS: INR 1.4 (0.9-1.1); Prothrombin Time 14.9 Seconds (9.0-12.0)
--- NOTE | 2022-12-07 08:04 | Urology Progress Note ---
Date of Service December 07, 2022 Assessment & Plan (1) UTI (urinary tract infection), bacterial: (2) Renal hemorrhage, left: Plan 87-year-old female with left abdominal pain and CT scan showing a suspected left renal cyst rupture. She also has a urinalysis concerning for infection. Afebrile and hemodynamically stable. Labs reviewed - WBC 13-19 today. Hemoglobin 11.8-10.7-10.8-11, Creatinine 1.01. Continue to trend. Urine culture prelim gram negative bacilli. On Ceftriaxone. Voiding spontaneously, continue to monitor. CT scan reviewed - Appears that she may have had a cyst rupture and has had a small bleed but it does not track into her retroperitoneum at this point. She does have a positive urinalysis certainly could have a potential infection of the cyst as well although less likely. She will need repeat imaging in several months with and without contrast to ensure that this was not a renal mass that bled as cancer is on the differential. Continue supportive care and antibiotic therapy. Consider switching antibiotics to ciprofloxacin given worsening leukocytosis. Follow cultures and tailor as culture data becomes available. Typically does not require any intervention but if there were concern for persistent bleed she would need to be transferred to a facility with interventional radiology. Continue to trend labs. Urology to follow. Plan discussed with Dr. Oates. Admission and Anticipated Discharge Date Admission Date: December 06, 2022 Subjective Pt examined at bedside this AM. Awake, resting in bed on arrival. No acute distress. Reports pain has significantly improved. Denies fevers, chills, nausea, vomiting. Voiding without issue. Denies hematuria or dysuria. Review of Systems Constitutional: as per Subjective / HPI Gastrointestinal: as per Subjective / HPI Genitourinary: as per Subjective / HPI Physical Exam Constitutional: no acute distress Respiratory: normal respiratory effort; no respiratory distress and no labored breathing Musculoskeletal: Head/Neck/Chest: normocephalic Skin: No visible rashes or lesions to exposed skin areas Neurologic: awake Psychiatric: A+Ox3, euthymic affect Results & Data Vital Signs (Past 12 Hours) Vital Signs Temp Pulse Pulse Resp BP Pulse Ox O2 Del Method 12/07/22 07:39 37.1 C 93 H 20 121/70 96 Room Air 12/07/22 03:44 37.1 C 80 20 104/61 93 Room Air 12/06/22 23:52 36.4 C 89 20 120/62 97 Room Air 12/06/22 22:00 79 PG Care Time/CCT Total # of Minutes Spent Total Time Spent with Patient: Total time spent is greater than 50% in coordination of care (as documented) at patient's floor/unit and/or counseling patient: Coding Level of Care Code 09997 SUB INP/OBS CARE 2/35MIN Diagnoses UTI (urinary tract infection), bacterial N39.0; A49.9 Renal hemorrhage, left N28.89
[2022-12-07] MEDS: FLUTICASONE FUROATE 200MCG 14 PUFFS/INHALER INH SCH (08:29)
[2022-12-07] MEDS: allopurinoL 100 MG TAB PO SCH (08:30)
[2022-12-07] MEDS: MULTIVITAMIN TAB PO SCH (08:30)
[2022-12-07] MEDS: PANTOprazole 40 MG TAB PO SCH (08:30)
[2022-12-07] MEDS: lisinopril 10 MG TAB PO SCH (08:30)
[2022-12-07] MEDS: ATORVASTATIN 20 MG TAB PO SCH (08:30)
[2022-12-07] MEDS: CHOLECALCIFEROL 1,000 UNITS 25 MCG TAB PO SCH (08:30)
[2022-12-07] MEDS: CALCIUM 600MG + VIT D 400 IU TAB PO SCH ×3 (08:30→16:27)
[2022-12-07] MEDS: METOPROLOL SUCC 50MG EXT REL TAB PO SCH (08:30)
[2022-12-07] MEDS: SPIRONOLACTONE 25 MG TAB PO SCH (08:30)
[2022-12-07] MEDS: FUROSEMIDE 40 MG TAB PO SCH (08:31)
[2022-12-07] MEDS ORDERED: FUROSEMIDE 40 MG TAB PO SCH (09:00)
[2022-12-07] MEDS: CIPROFLOXACIN / D5W 400 MG/200 ML BAG IV SCH (16:26)
--- NOTE | 2022-12-07 17:24 | Hospitalist Progress Note ---
Date of Service December 07, 2022 Assessment & Plan (1) Renal hemorrhage, left: Plan 87-year-old female with past medical history significant for hypothyroidism, hyperlipidemia, mitral regurgitation, moderate persistent asthma, hypertension, chronic atrial fibrillation, CAD, chronic diastolic CHF, chronic kidney disease stage III, cirrhosis of liver without ascites, morbid obesity, urinary incontinence, osteoarthritis, iron deficiency anemia, history of edema, essential tremors who lives at home with her daughter and son and ambulates with a cane comes because of several left flank pain,, denies any fever or abnormal bowel or bladder habits. She is being managed for the following: Acute left flank pain Renal hemorrhage, left Suspected left renal cyst rupture Admitting CT abdomen pelvis: Hemorrhagic left lower pole renal cortical cyst with surrounding stranding, hemorrhage within the cyst appears to be acute. Follow-up MRI with contrast is recommended to rule out any underlying mass. No hydronephrosis or nephrolithiasis. Multiple bilateral renal cortical cyst, including a number of high density left renal cortical cyst. Admitting hemoglobin of 13.5, hemoglobin 11.8 during the day, trend H&H. INR elevated at 3.6 at presentation, Coumadin on hold. Transfuse as needed for symptomatic anemia or hemoglobin less than 8. Urology evaluated, repeat imaging in several months. No need for acute intervention for now. Discussed with urology, ceftriaxone changed to ciprofloxacin due to WBC elevation, possible resuming of warfarin tomorrow. Complicated UTI : UA suggestive of UTI, ciprofloxacin 12/07. Urine culture with gram-negative bacilli, follow final Chronic atrial fibrillation: On metoprolol succinate. Coumadin [see above] liver cirrhosis without ascites, Chronic diastolic CHF -->> continue with/resume home meds as and when able. Monitor for volume overload. Non obstructive CAD: On beta-jer statin Hypertension: On metoprolol succinate and lisinopril and diuretics Hyperlipidemia: On statin Morbid obesity: Weight loss/lifestyle modification counseling done. Asthma moderate persistent: Continue home inhalers Hypothyroidism: continue home Synthyroid, TSH elevated, will increase levothyroxine 137mcg to 150 mcg. Continue 274 mcg on Sunday and . Repeat thyroid function test in 6 weeks and follow-up with PCP. Iron deficiency anemia: Follows with heme-onc, On iron supplements. CKD stage III: presented with creatinine creatinine of 0.9. Stable DVT prophylaxis:, holding Coumadin. SCDs. Full code Admission and Anticipated Discharge Date Admission Date: December 06, 2022 Subjective Patient seen and examined at bedside as a follow-up of acute left flank pain, complicated UTI, left renal hemorrhage. Patient was lying in bed, on room air, NAD, reports significant improvement in her left-sided abdominal pain, patient denies any febrile illness or flulike illness in the recent past. Patient reports eating okay and moving bowels okay. Denies any cough or chest pain. Patient is afebrile, patient's WBC is uptrending, discussed with urology, plan to change to ciprofloxacin and possible resuming of warfarin from tomorrow if H&H stays stable around 11. Physical Exam Physical Exam: GENERAL: Alert and oriented x3. NAD, on RA. HEENT: No pallor, no icterus. Pupils equal, round and reactive to light. Oral mucosa moist. NECK: No JVD, no neck masses. HEART: S1 and S2 heard. Regular rate and rhythm. No murmur, no gallop. RESPIRATORY SYSTEM: Normal AP diameter. No accessory muscle use. No wheezing, no crackles. ABDOMEN: Soft, bowel sounds present, left-sided abdominal tenderness, no distention. CENTRAL NERVOUS SYSTEM: No facial droop. Speech is clear. Obeys simple commands. Moves extremities. EXTREMITIES: BLE trace edema, no erythema seen. Results & Data Results & Data Vital Signs (Past 12 Hours) Vital Signs Temp Pulse Pulse Resp BP Pulse Ox O2 Del Method 12/07/22 15:35 36.6 C 75 22 104/56 L 95 Room Air 12/07/22 15:28 82 12/07/22 11:13 36.8 C 90 20 119/70 95 Room Air 12/07/22 08:00 85 12/07/22 08:00 Room Air 12/07/22 07:39 37.1 C 93 H 20 121/70 96 Room Air
[2022-12-07] MEDS: ACETAMINOPHEN 325 MG TAB PO PRN (23:49)
[2022-12-08] MEDS: CIPROFLOXACIN / D5W 400 MG/200 ML BAG IV SCH (03:51)
[2022-12-08] MEDS ORDERED: LEVOTHYROXINE SODIUM 150 MCG TABLET PO SCH (06:30)
[2022-12-08 06:52] LABS: BUN Creatinine Ratio 24.8 (10-20); Calcium 8.7 mg/dl (8.6-10.3); Creatinine Clr Calc Pharmacy 36.6 ml/min; Est GFR (African American) 48.5 ml/min; Est GFR (Non-African American) 41.9 ml/min; Magnesium 1.8 mg/dl (1.7-2.4); Phosphorus 2.4 mg/dl (2.5-4.9); Potassium 4.1 mmol/L (3.5-5.1)
[2022-12-08 07:00] LABS: INR 1.1 (0.9-1.1); Prothrombin Time 12.3 Seconds (9.0-12.0)
[2022-12-08] MEDS: CHOLECALCIFEROL 1,000 UNITS 25 MCG TAB PO SCH (08:29)
[2022-12-08] MEDS: allopurinoL 100 MG TAB PO SCH (08:29)
[2022-12-08] MEDS: ATORVASTATIN 20 MG TAB PO SCH (08:29)
[2022-12-08] MEDS: CALCIUM 600MG + VIT D 400 IU TAB PO SCH ×2 (08:29→12:19)
[2022-12-08] MEDS: FLUTICASONE FUROATE 200MCG 14 PUFFS/INHALER INH SCH (08:30)
[2022-12-08] MEDS: METOPROLOL SUCC 50MG EXT REL TAB PO SCH (08:30)
[2022-12-08] MEDS: FUROSEMIDE 40 MG TAB PO SCH ×2 (08:30→14:31)
[2022-12-08] MEDS: lisinopril 10 MG TAB PO SCH (08:30)
[2022-12-08] MEDS: SPIRONOLACTONE 25 MG TAB PO SCH (08:31)
[2022-12-08] MEDS: MULTIVITAMIN TAB PO SCH (08:31)
[2022-12-08] MEDS: PANTOprazole 40 MG TAB PO SCH (08:31)
[2022-12-08 09:12] LABS: Hematocrit (blood only) 31.8 % (37.0-47.0); Mean Corpuscular Hemoglobin 30.2 pg (25.0-34.0); Mean Corpuscular Hgb Conc 31.4 g/dL (32.0-36.0); Mean Corpuscular Volume 96.1 fL (80.0-100.0); Mean Platelet Volume 10.9 fL (9.4-12.4); Platelet Count 213 K/uL (130-400); RDW Coefficient of Variation 14.6 % (11.5-14.5); RDW Standard Deviation 51.8 fL (36.4-46.3); Red Blood Count 3.31 M/uL (4.20-5.40); White Blood Count 14.25 K/ul (4.8-10.8)
--- NOTE | 2022-12-08 12:26 | Urology Progress Note ---
Date of Service December 08, 2022 Assessment & Plan (1) UTI (urinary tract infection), bacterial: (2) Renal hemorrhage, left: Plan 87-year-old female with left abdominal pain and CT scan showing a suspected left renal cyst rupture. Afebrile and hemodynamically stable. Labs reviewed - WBC improved to 14.25 today, Hemoglobin 10, Creatinine 1.17. Continue to trend. Urine culture grew Klebsiella. Antibiotics changed from ceftriaxone to ciprofloxacin yesterday. Voiding spontaneously, continue to monitor. Continue supportive care and antibiotic therapy. She will need a total of 2 weeks of antibiotic therapy. Recommend continuing Cipro as this is sensitive on her culture. Will arrange outpatient follow-up with our service with repeat imaging of her kidneys. Patient to resume anticoagulation today per primary team. Urology will follow peripherally. Please contact us with any further questions, concerns, or changes in patient's status. Plan discussed with Dr. Hairston. Admission and Anticipated Discharge Date Admission Date: December 06, 2022 Subjective Pt examined at bedside this AM. Awake, resting in bed on arrival. No acute distress. Overall feeling much better. Reports pain has significantly improved. Denies fevers, chills, nausea, vomiting. Voiding without issue. Denies hematuria or dysuria. Review of Systems Constitutional: as per Subjective / HPI Gastrointestinal: as per Subjective / HPI Genitourinary: as per Subjective / HPI Physical Exam Constitutional: no acute distress Respiratory: normal respiratory effort; no respiratory distress and no labored breathing Musculoskeletal: Head/Neck/Chest: normocephalic Skin: No visible rashes or lesions to exposed skin areas Neurologic: awake Psychiatric: A+Ox3, euthymic affect Results & Data Vital Signs (Past 12 Hours) Vital Signs Temp Pulse Pulse Resp BP Pulse Ox O2 Del Method 12/08/22 11:15 36.9 C 87 20 121/63 96 Room Air 12/08/22 08:00 Room Air 12/08/22 07:44 36.9 C 107 H 20 140/97 96 Room Air 12/08/22 05:45 36.9 C 86 16 115/65 94 Room Air 12/08/22 01:48 92 H 12/08/22 00:45 Room Air PG Care Time/CCT Total # of Minutes Spent Total Time Spent with Patient: Total time spent is greater than 50% in coordination of care (as documented) at patient's floor/unit and/or counseling patient: Coding Level of Care Code 75550 SUB INP/OBS CARE MIN Diagnoses UTI (urinary tract infection), bacterial N39.0; A49.9 Renal hemorrhage, left N28.89
[2022-12-08] MEDS ORDERED: POT PHOSPHATE MONOBASIC W/ SOD TAB PO ONE (13:50)
--- NOTE | 2022-12-08 14:04 | Discharge Summary ---
Date of Service December 08, 2022 Admission HPI Per Admitting Provider 87-year-old female with past medical history significant for hypothyroidism, hyperlipidemia, mitral regurgitation, moderate persistent asthma, hypertension, chronic atrial fibrillation, CAD, chronic diastolic CHF, chronic kidney disease stage III, cirrhosis of liver without ascites, morbid obesity, urinary incontinence, osteoarthritis, iron who lives at home deficiency anemia, history of edema, essential tremors who lives at home with her daughter and son and ambulates with a cane comes because of several left flank pain. Denies any fevers. Normal bowel and bladder movements. No chest pain. No nausea. No noam rtness of breath. No cough. No headaches. Vision is okay. No runny nose or sore throat or cough. Currently pain is better. And hemodynamically stable. Admission Exam Per Admitting Provider General- Not in distress Head- atraumatic Eyes- PERRL ENT- oropharynx clear Neck- supple, no JVD, Lungs- clear to auscultation and percussion Heart- regular rhythm; no murmur, no gallop, Abdomen- normal bowel sounds, soft, tenderness in left flank and left side of abdomen. No distension Extremities- b/l pretibial edema present , no erythema seen Neuro- alert, oriented x 3; PERRL, EOMI; no facial palsy; no dysarthria;non focal. Skin- warm & dry Principal Diagnosis Left renal hemorrhagic cyst Complicated UTI Discharge Exam GENERAL: Alert and oriented x3. NAD, on RA. HEENT: No pallor, no icterus. Pupils equal, round and reactive to light. Oral mucosa moist. NECK: No JVD, no neck masses. HEART: S1 and S2 heard. Regular rate and rhythm. No murmur, no gallop. RESPIRATORY SYSTEM: Normal AP diameter. No accessory muscle use. No wheezing, no crackles. ABDOMEN: Soft, bowel sounds present, left-sided abdominal tenderness, no distention. CENTRAL NERVOUS SYSTEM: No facial droop. Speech is clear. Obeys simple commands. Moves extremities. EXTREMITIES: BLE trace edema, no erythema seen. Discharge Data Allergies Allergy/AdvReac Type Severity Reaction Status Date / Time epinephrine AdvReac Severe SEVERE Verified 12/15/19 02:50 TACHYCARDIA Beta-Blockers AdvReac Intermediate CHF Verified 12/15/19 02:50 (Beta-Adrenergic Bloc sotalol AdvReac Intermediate CHF Verified 12/15/19 02:50 Consultations 12/06/22 05:36 ED Decision to Admit Stat 12/06/22 09:27 Consult Urology Routine 12/06/22 13:17 Consult Urology Routine Ordered Studies 12/06/22 03:42 CT abd pelvis wo con Stat Hospital Course (1) Renal hemorrhage, left: Plan 87-year-old female with past medical history significant for hypothyroidism, hyperlipidemia, mitral regurgitation, moderate persistent asthma, hypertension, chronic atrial fibrillation, CAD, chronic diastolic CHF, chronic kidney disease stage III, cirrhosis of liver without ascites, morbid obesity, urinary incontinence, osteoarthritis, iron deficiency anemia, history of edema, essential tremors who lives at home with her daughter and son and ambulates with a cane comes because of several left flank pain,, denies any fever or abnormal bowel or bladder habits. She was managed for the following: Acute left flank pain Renal hemorrhage, left Suspected left renal cyst rupture Admitting CT abdomen pelvis: Hemorrhagic left lower pole renal cortical cyst with surrounding stranding, hemorrhage within the cyst appears to be acute. Follow-up MRI with contrast is recommended to rule out any underlying mass. No hydronephrosis or nephrolithiasis. Multiple bilateral renal cortical cyst, including a number of high density left renal cortical cyst. Admitting hemoglobin of 13.5, hemoglobin has been stable around 10-11. Patient to resume Coumadin upon discharge, closely follow-up with Coumadin clinic in 2 to 3 days upon discharge. Patient reports improving pain, today 2/10 in intensity at bedside exam. Discussed with urology, plan to discharge on ciprofloxacin for total of 2 weeks therapy, follow-up with urology for repeat imaging, okay with resuming Coumadin. Appreciate urology recommendations. Complicated UTI : UA suggestive of UTI, ciprofloxacin 12/07. Follow-up 2 weeks treatment. Probiotics added. Chronic atrial fibrillation: On metoprolol succinate. Coumadin [see above] liver cirrhosis without ascites, Chronic diastolic CHF -->> continue with/resume home meds as and when able. Monitor for volume overload. Non obstructive CAD: On beta-jer statin Hypertension: On metoprolol succinate and lisinopril and diuretics Hyperlipidemia: On statin Morbid obesity: Weight loss/lifestyle modification counseling done. Asthma moderate persistent: Continue home inhalers Hypothyroidism: continue home Synthyroid, TSH elevated, will increase levothyroxine 137mcg to 150 mcg. Continue 274 mcg on Sunday and . Repeat thyroid function test in 6 weeks and follow-up with PCP. Iron deficiency anemia: Follows with heme-onc, On iron supplements. CKD stage III: presented with creatinine creatinine of 0.9. Stable DVT prophylaxis:, holding Coumadin. SCDs. Full code Patient being discharged home with home health with following instruction at the point of discharge: Follow-up with your primary care physician within a week time and likely you will need labs CBC/CMP/magnesium/phosphorus. Follow-up with urology in 1 to 2 weeks time upon discharge, you will need repeat imaging of your kidneys. You can use resume your Coumadin from today. Follow-up with Coumadin clinic closely in 2 to 3 days upon discharge. For your UTI, you are being discharged on ciprofloxacin for total of 2 weeks to complete the course for complicated UTI. Your thyroid medication has been changed , your levothyroxine 137 mcg has been increased to 150 mcg for rest of the days except Mondays and . Continue with prior levothyroxine 274 mcg on Sunday and . you will need repeat thyroid function test in 6 weeks time upon discharge, coordinate with your PCP office for this test. Take your medications as prescribed. Please make sure that you are able to get your medications today by calling your pharmacy before you leave the hospital so that your treatment continuity is not broken. Home Health Attestation I certify that this patient is under my care and that I, or a physicians assistant brand manager working with me, had a face to-face encounter that meets the home health [id number] encounter requirements with this patient. The encounter with the patient was in whole, or in part, for the following m edical condition, which is the primary reason for home health care (list medical condition): I certify that, based on my findings, the following services are medically nece ssary home health services: My clinical findings support the need for the above services because: Further, I certify that my clinical findings support that this patient is homebound (i.e. absences from home require considerable and taxing effort and are for medical reasons or holiness services or infrequently or of short duration when for other reasons) because: Certification for Home Health Services: Based on the above findings, I certify that this patient is confined to the home and needs intermittent residential care, physical therapy and/or speech therapy or continues to need occupational therapy. The patient is under my care, and I have initiated the establishment of the plan of care. This patient will be followed by a physician who will periodically review the plan of care. Total Time Total Time Spent Total Time Spent (In Minutes): 45 Discharge Plan Discharge Items Patient Disposition: Home - Home Health Services Reason For Visit: ABDOMINAL/FLANK PAIN Discharge Diagnosis: Left renal hemorrhagic cyst Complicated UTI Activity: Resume your previous activity Non-emergency contact: Primary Care Provider Call non-emergency contact if: you have any medication questions, your symptoms worsen, your pain is not controlled, your pain is worsening and your temperature is above 101 Follow-up/Referrals: Jovany El MD [Primary Care Provider] - Diet: Heart Healthy Addtl Attending Provider Instructions: Follow-up with your primary care physician within a week time and likely you will need labs CBC/CMP/magnesium/phosphorus. Follow-up with urology in 1 to 2 weeks time upon discharge, you will need repeat imaging of your kidneys. You can use resume your Coumadin from today. Follow-up with Coumadin clinic closely in 2 to 3 days upon discharge. For your UTI, you are being discharged on ciprofloxacin for total of 2 weeks to complete the course for complicated UTI. Your thyroid medication has been changed , your levothyroxine 137 mcg has been i ncreased to 150 mcg for rest of the days except Mondays and . Continue with prior levothyroxine 274 mcg on Sunday and . you will need repeat thyroid function test in 6 weeks time upon discharge, coordinate with your PCP office for this test. Take your medications as prescribed. Please make sure that you are able to get your medications today by calling your pharmacy before you leave the hospital so that your treatment continuity is not broken. Pending Studies at Discharge: No Stand-Alone Forms: [employer], Smoking Cessation Medications and DC Order Prescriptions: New levothyroxine 137 mcg Tablet 274 mcg PO [id number]@629 Qty: 30 0RF levothyroxine [Synthroid] 150 mcg Tablet 150 mcg PO [id number]@629 Qty: 30 0RF ciprofloxacin HCl 500 mg tablet 500 mg PO BID 13 Days Qty: 26 0RF Probiotic 3 billion cell capsule 3,000 mmu cells PO DAILY 14 Days Qty: 14 0RF Rx Instructions: administer with a meal Continued spironolactone [Aldactone] 25 mg Tablet 25 mg PO DAILY lorazepam 0.5 mg Tablet 0.5 mg PO TID PRN (Reason: headaches or tremors) albuterol sulfate 90 mcg/actuation Hfa Aerosol Inhaler 2 puff INHALATION Q6H PRN (Reason: SOB) multivitamin Tablet 1 tab PO DAILY lisinopril 10 mg Tablet 10 mg PO DAILY nitroglycerin [Nitrostat] 0.4 mg Tablet, Sublingual 0.4 mg Sublingual UD PRN (Reason: Chest Pain) calcium carbonate-vitamin D3 500 mg(1,250mg) -125 unit Tablet 1 tab PO TIDM omeprazole 20 mg capsule,delayed release(DR/EC) 20 mg PO DAILY metoprolol succinate 50 mg tablet extended release 24 hr 50 mg PO 1XD meclizine 12.5 mg tablet 12.5 mg PO TID PRN (Reason: Dizziness) furosemide 40 mg tablet See Rx Instructions .ROUTE .COMPLEX Rx Instructions: TAKE 1 TABLET BY MOUTH DAILY, PLUS AN ADDITIONAL TABLET IN EARLY AFTERNOONS ON SUN, SUN, AND SUNDAY atorvastatin 20 mg tablet 20 mg PO 1XD allopurinol 100 mg tablet 100 mg PO 1XD warfarin 4 mg tablet 2 - 4 mg PO 1XD Rx Instructions: TAKE 1/2 TO 1 TABLET (2MG TO 4MG) BY MOUTH DAILY DIRECTED BY [facility] fluticasone propionate [Flovent HFA] 110 mcg/actuation HFA aerosol inhaler 110 mcg INHALATION 2XD Vitron-C 65 mg iron- 125 mg tablet,delayed release (DR/EC) 62 - 125 tab PO 1XD Vitamin D3 1,000 UNITS 1,000 unit PO 1XD loperamide 2 mg PO 1XD PRN (Reason: Diarrhea) Discontinued levothyroxine 137 mcg tablet See Rx Instructions .ROUTE .COMPLEX Rx Instructions: TAKE 1 TABLET BY MOUTH DAILY 5 DAYS PER WEEK AND 2 TABS TWICE PER WEEK (TOTAL OF 9 TABS/WEEK) Discharge Orders: Discharge Order (Routine); Ordered 12/08/22 Ordered By: Leticia Melara Admission Data Admit Date/Time: 12/06/22 06:59 Attending Provider: Leticia Melara Admit Provider: Terrence Curiel Primary Care Provider: Jovany El Other Providers: Nadeem Oates ; Terrence Curiel ; Tesfaye Connell ; Saud Lake ; John Robert ; Nicolette Sofia ; Iftikhar Hairston ; Syl Owens ; Sonja Harp ; Mahendra Bermudez ; Richard Mc ; Alem Ball ; Laron Arguello
== END 2022-12-08 15:29 | disposition home or self-care (01) | DRG 699 ==
LOC: ED 03:40 → 2E 06:59
DX: N18.30 Chronic kidney disease, stage 3 unspecified; J45.40 Moderate persistent asthma, uncomplicated; I25.10 Atherosclerotic heart disease of native coronary artery without angina pectoris; Z88.8 Allergy status to other drugs, medicaments and biological substances; M81.0 Age-related osteoporosis without current pathological fracture; E66.01 Morbid (severe) obesity due to excess calories; K74.60 Unspecified cirrhosis of liver; N28.1 Cyst of kidney, acquired; E78.5 Hyperlipidemia, unspecified; N39.0 Urinary tract infection, site not specified; E03.9 Hypothyroidism, unspecified; Z79.01 Long term (current) use of anticoagulants; I13.0 Hypertensive heart and chronic kidney disease with heart failure and stage 1 through stage 4 chronic kidney disease, or unspecified chronic kidney disease; I50.32 Chronic diastolic (congestive) heart failure; Z79.890 Hormone replacement therapy; N28.89 Other specified disorders of kidney and ureter; I48.20 Chronic atrial fibrillation, unspecified; Z68.41 Body mass index [BMI] 40.0-44.9, adult; Z79.899 Other long term (current) drug therapy